=== PATIENT | male | born 1970 | race Native Hawaiian/Other Pacific Islander ===

== ENCOUNTER 2020-12-01 10:23 | Inpatient (IN) | payer OTHER ==
[2020-12-01] MEDS ORDERED: ACETAMINOPHEN 500 MG TAB PO ONE (10:41)
--- NOTE | 2020-12-01 10:45 | Event Note ---
ED Screening Note Date of service: 12/01/20 Time: 10:45 ED Screening Note: 49-year-old male patient presents to the emergency department with complaints of subjective fever, body aches, chest pain, and cough for 3 days. General: Awake, appropriately interactive, no acute distress. Neck: Supple. Full range of motion intact. Cardiovascular: Tachycardic. Normal peripheral perfusion. Pulmonary: Clear to auscultation. No respiratory distress. Patient is speaking normally without use of accessory muscles. Skin: No apparent rashes or lesions. Neurological: No facial asymmetry. Speech is clear. Follows commands. Patient is alert and oriented. Musculoskeletal: Moves all four extremities spontaneously with normal range of motion. Psych: Cooperative. Appropriate mood and affect. Febrile/tachycardic in triage --> lactic acid + Tylenol ordered; decision to pursue further sepsis work-up deferred to additional ED providers I have greeted and performed a focused rapid initial assessment of this patient. A comprehensive ED assessment and evaluation of the patient, analysis of all test results, and completion of the medical decision-making process will be conducted by additional ED providers. This initial assessment/diagnostic orders/clinical plan/treatment(s) is/are subject to change based on patients health status, clinical progression and re-assessment. Further treatment and workup at subsequent clinical provider's discretion. Patient/guardian urged not to elope from the ED as their condition may be serious if not clinically assessed and managed.
[2020-12-01] MEDS ORDERED: LIDOCAINE PF 100 MG/5 ML (CARDIAC SYRINGE) IV ONE ×2 (10:55→11:46)
[2020-12-01] MEDS ORDERED: MIDAZOLAM 2 MG/2 ML INJ ONE (10:56)
[2020-12-01] MEDS ORDERED: fentaNYL 100 MCG/2 ML INJ ONE (10:56)
[2020-12-01] MEDS ORDERED: PHENYLEPHRINE/NS 1,000 MCG/10 ML SYRINGE (OR USE) IV ONE ×2 (10:56→11:47)
[2020-12-01] MEDS ORDERED: EPINEPHrine 1 MG/10 ML SYRINGE ONE ×2 (10:56→11:46)
[2020-12-01] MEDS ORDERED: HEPARIN 10,000 UNITS/10 ML VIAL ONE (10:56)
[2020-12-01] MEDS ORDERED: HEPARIN/NS 5000 UNIT/500ML 0 ML IR ONE (10:56)
[2020-12-01] MEDS ORDERED: ATROPINE 0.1% (1 MG/10 ML) CARDIAC SYRINGE ONE (10:56)
[2020-12-01] MEDS ORDERED: VERAPAMIL 5 MG/2 ML INJ ONE ×2 (10:56→11:47)
[2020-12-01] MEDS ORDERED: LIDOCAINE (2%) 20 MG/1 ML VIAL 20 ML MDV INFILTRATI ONE ×2 (10:57→11:47)
[2020-12-01] MEDS ORDERED: NITROGLYCERIN SYRINGE 0 ML ONE (10:57)
[2020-12-01] MEDS ORDERED: SODIUM CHLORIDE 0.9% 500 ML 0 ML ONE (10:57)
[2020-12-01] MEDS ORDERED: SODIUM CHLORIDE 0.9% 1000 ML 1,000 ML IV ONE (10:59)
[2020-12-01 11:08] LABS: Basophils # (Auto) 0.1 K/mm3 (0.0-0.1); Basophils % (Auto) 0.4 % (0.0-1.8); Hematocrit 47.6 % (35.5-45.6); Hemoglobin 16.1 gm/dl (11.8-15.2); Lymphocytes # (Auto) 1.8 K/mm3 (1.2-5.4); Lymphocytes % (Auto) 10.6 % (13.4-35.0); Mean Corpuscular HGB Conc 34 % (32-34); Mean Corpuscular Volume 94 fl (84-94); Monocytes # (Auto) 1.7 K/mm3 (0.0-0.8); Monocytes % (Auto) 10.2 % (0.0-7.3); Platelet Count 226 K/mm3 (140-440); Red Blood Count 5.06 M/mm3 (3.65-5.03); Red Cell Distribution Width 13.1 % (13.2-15.2)
[2020-12-01] MEDS ORDERED: cefTRIAXone/NS 1 GM/50 ML 1 GM/50 ML BAG IV ONE (11:21)
[2020-12-01] MEDS ORDERED: ASPIRIN 325 MG TAB PO ONE (11:22)
[2020-12-01] MEDS ORDERED: CLOPIDOGREL 300 MG TAB PO ONE (11:22)
[2020-12-01] MEDS ORDERED: HEPARIN 10,000 UNITS/10 ML VIAL IV ONE ×2 (11:23→13:18)
[2020-12-01] MEDS ORDERED: HEPARIN 10,000 UNITS/10 ML VIAL IV PRN (11:23)
[2020-12-01 11:30] LABS: Alanine Aminotransferase 46 units/L (7-56); Albumin 3.6 g/dL (3.9-5); BUN/Creatinine Ratio 16; Blood Urea Nitrogen 14 mg/dL (9-20); Calcium 8.9 mg/dL (8.4-10.2); Hemolysis Index 22
--- NOTE | 2020-12-01 11:31 | XRay Report ---
CHEST 1 VIEW 12/01/2020 10:11 AM INDICATION / CLINICAL INFORMATION: hypertension. COMPARISON: None available. FINDINGS: SUPPORT DEVICES: None. HEART / MEDIASTINUM: No significant abnormality. LUNGS / PLEURA: No significant pulmonary or pleural abnormality. No pneumothorax. ADDITIONAL FINDINGS: No significant additional findings. IMPRESSION: 1. No acute findings. Signer Name: Trevor Holden MD Signed: 12/01/2020 11:26 AM Workstation Name: [id number]
[2020-12-01 11:37] LABS: C-Reactive Protein 27.5 mg/dL (0.00-1.30)
[2020-12-01] MEDS ORDERED: HEPARIN/NS 5000 UNIT/500ML 1,000 ML IR ONE (11:46)
[2020-12-01 11:47] LABS: INR 1.07 (0.87-1.13)
[2020-12-01] MEDS ORDERED: SODIUM CHLORIDE 0.9% 500 ML 500 ML ONE (11:47)
[2020-12-01] MEDS ORDERED: NITROGLYCERIN SYRINGE 3 ML ONE (11:47)
--- NOTE | 2020-12-01 11:55 | Emergency Department Report ---
ED Chest Pain HPI - General Chief Complaint: Chest Pain Stated Complaint: CHEST PAIN/COLD/DIZZY Time Seen by Provider: 12/01/20 10:50 Source: patient Mode of arrival: Ambulatory Limitations: No Limitations - History of Present Illness Initial Comments: This is a 49-year-old male with no prior cardiac history. He states that he developed substernal chest heaviness with bilateral arm tingling or numbness on Sunday. He states the pain has been constant but waxing and waning in intensity. 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 When he came home on Sunday he felt like he had a fever and a dry cough. He states that he was around somebody with Covid 3 months ago but no recent exposures. He has not been vaccinated. On Sunday the patient's chest pain was much more severe. It was associated with diaphoresis. Today (Sunday) he decided to seek out medical care. He is not on any current medications. He does not smoke. He states his grandmother had some sort of heart problem but could not specify. He is somewhat hard of hearing. The aviation survival technician presented his EKG to be. It was consistent with a subacute STEMI or STEMI in evolution with cues and ST elevation in the inferolateral leads J- point elevation in anterior leads. It was texted to the on-call forms designer. Patient was found to have a fever and tachycardia. We are directed to continue to work on his medical status pending possible cardiac catheterization. This was done. On my encounter the patient stated he felt relatively comfortable perhaps giving his chest pain a 3 out of 10. He states it has been much better than previously especially on Sunday. He is not complaining of shortness of breath. He was not sweaty or nauseated. Complaint: chest pain -: Gradual, days(s) Onset: during rest Pain Location: substernal Pain Radiation: other (Tingling in arms) Severity: mild (Depending on day), moderate, severe Quality: heaviness Consistency: constant Improves With: nothing Worsens With: other (Unable to work on Sunday) Context: recent illness (Recent febrile illness) re: diaphoresis (Yesterday). denies: nausea, vomting Other Symptoms: cough (Nonproductive), fever. denies: syncope, rash Treatments Prior to Arrival: none Aspirin use within the Past 7 Days: (0) No - Related Data Allergies Allergy/AdvReac Type Severity Reaction Status Date / Time No Known Allergies Allergy Verified 12/01/20 10:40 Heart Score - HEART Score History: Highly suspicious EKG: Significant ST-depression Age: 45-65 Risk factors: 1-2 risk factors Troponin: 1-3x normal limit HEART Score: 7 - EKG Read Time Time EKG Completed: 10:45 EKG Read Time: 10:47 - Critical Actions Critical Actions: >7 pts:50-65% risk of adverse cardiac event. Early invasive measures ED Review of Systems ROS: Stated complaint: CHEST PAIN/COLD/DIZZY Other details as noted in HPI Constitutional: diaphoresis, fever. denies: chills Eyes: eye discharge. denies: eye pain, vision change ENT: denies: ear pain, throat pain Respiratory: cough, shortness of breath (Not currently). denies: wheezing Cardiovascular: as per HPI, chest pain. denies: palpitations Endocrine: no symptoms reported Gastrointestinal: denies: abdominal pain, nausea, diarrhea Genitourinary: denies: urgency, dysuria Musculoskeletal: denies: back pain, arthralgia Skin: denies: rash, lesions Neurological: denies: headache, weakness, paresthesias Psychiatric: denies: anxiety, depression Hematological/Lymphatic: denies: easy bleeding, easy bruising ED Past Medical Hx - Past Medical History Previous Medical History?: No - Surgical History Past Surgical History?: No - Social History Smoking Status: Light Tobacco Smoker Substance Use Type: Alcohol ED Physical Exam - General Limitations: No Limitations General appearance: alert, in no apparent distress - Head Head exam: Present: atraumatic, normocephalic - Eye Eye exam: Present: normal appearance. Absent: scleral icterus - ENT ENT exam: Present: mucous membranes moist - Neck Neck exam: Present: normal inspection - Respiratory Respiratory exam: Present: normal lung sounds bilaterally. Absent: respiratory distress - Cardiovascular Cardiovascular Exam: Present: regular rate, normal rhythm. Absent: systolic murmur, diastolic murmur, rubs, gallop - GI/Abdominal GI/Abdominal exam: Present: soft, normal bowel sounds. Absent: distended, tenderness, guarding, rebound - Rectal Rectal exam: Present: deferred - Extremities Exam Extremities exam: Present: normal inspection. Absent: calf tenderness - Back Exam Back exam: Present: normal inspection - Neurological Exam Neurological exam: Present: alert, oriented X3, CN II-XII intact. Absent: motor sensory deficit - Psychiatric Psychiatric exam: Present: normal affect, normal mood - Skin Skin exam: Present: warm, dry, intact, normal color. Absent: rash ED Course Vital Signs 12/01/20 12/01/20 12/01/20 10:35 11:00 11:03 Temperature 101.1 F H Pulse Rate 111 H 102 H Respiratory 20 25 H 24 Rate Blood Pressure 127/89 O2 Sat by Pulse 100 97 97 Oximetry - Reevaluation(s) Reevaluation #1: Case was discussed with the forms designer again after initial encounter. Chest x-ray was not impressive for for pneumonia. Blood cultures were obtained. Patient was given 1 dose of ceftriaxone. Bone Tender recommended MICHELLE Maliha L, aspirin and heparin. Patient was ultimately called to the [facility]. 12/01/20 11:58 Reevaluation #2: Hospitalist Dr. Manriquez was notified of the need to admit. 12/01/20 12:01 JOHNNY score - Johnny Score Age > 65: (0) No Aspirin use within the Past 7 Days: (0) No 3 or more CAD Risk Factors: (0) No 2 or more Angina events in past 24 hrs: (1) Yes Known CAD with more than 50% Stenosis: (0) No Elevated Cardiac Markers: (1) Yes ST Deviation Greater than 0.5mm: (1) Yes JOHNNY Score: 3 ED Medical Decision Making - Lab Data Result diagrams: 12/01/20 10:55 12/01/20 11:10 Laboratory Results - last 24 hr 12/01/20 12/01/20 12/01/20 10:55 10:55 10:55 WBC 16.7 H RBC 5.06 H Hgb 16.1 H Hct 47.6 H MCV 94 MCH 32 MCHC 34 RDW 13.1 L Plt Count 226 Lymph % (Auto) 10.6 L Cache % (Auto) 10.2 H Eos % (Auto) 0.0 Baso % (Auto) 0.4 Lymph # (Auto) 1.8 Cache # (Auto) 1.7 H Eos # (Auto) 0.0 Baso # (Auto) 0.1 Seg Neutrophils % 78.8 H Seg Neutrophils # 13.1 H PT INR APTT D-Dimer Sodium 136 L Potassium 3.9 Chloride 97.6 L Carbon Dioxide 27 Anion Gap 15 BUN 14 Creatinine 0.9 Estimated GFR > 60 BUN/Creatinine Ratio 16 Glucose 158 H Lactic Acid 1.30 Calcium 8.9 Magnesium 1.70 Total Bilirubin 0.80 AST 136 H ALT 46 Alkaline Phosphatase 70 Lactate Dehydrogenase Total Creatine Kinase 605 H Troponin T 1.910 H* C-Reactive Protein Total Protein 8.2 Albumin 3.6 L Albumin/Globulin Ratio 0.8 Procalcitonin 12/01/20 12/01/20 12/01/20 11:10 11:10 11:11 WBC RBC Hgb Hct MCV MCH MCHC RDW Plt Count Lymph % (Auto) Cache % (Auto) Eos % (Auto) Baso % (Auto) Lymph # (Auto) Cache # (Auto) Eos # (Auto) Baso # (Auto) Seg Neutrophils % Seg Neutrophils # PT INR APTT D-Dimer 342.27 H Sodium Potassium Chloride Carbon Dioxide Anion Gap BUN Creatinine Estimated GFR BUN/Creatinine Ratio Glucose 174 H Lactic Acid Calcium Magnesium Total Bilirubin AST ALT Alkaline Phosphatase Lactate Dehydrogenase 960 H Total Creatine Kinase Troponin T C-Reactive Protein 27.50 H Total Protein Albumin Albumin/Globulin Ratio Procalcitonin 0.26 12/01/20 11:11 WBC RBC Hgb Hct MCV MCH MCHC RDW Plt Count Lymph % (Auto) Cache % (Auto) Eos % (Auto) Baso % (Auto) Lymph # (Auto) Cache # (Auto) Eos # (Auto) Baso # (Auto) Seg Neutrophils % Seg Neutrophils # PT 13.8 INR 1.07 APTT 32.0 D-Dimer Sodium Potassium Chloride Carbon Dioxide Anion Gap BUN Creatinine Estimated GFR BUN/Creatinine Ratio Glucose Lactic Acid Calcium Magnesium Total Bilirubin AST ALT Alkaline Phosphatase Lactate Dehydrogenase Total Creatine Kinase Troponin T C-Reactive Protein Total Protein Albumin Albumin/Globulin Ratio Procalcitonin - EKG Data -: EKG Interpreted by Me EKG shows normal: sinus rhythm Rate: normal - EKG Data Interpretation: other (Q's and ST elevation noted in the inferolateral leads consistent with recent STEMI/STEMI in evolution) - Radiology Data Radiology results: image reviewed (Slightly increased markings in the right lower lobe. I do not think diagnostic of pneumonia) Critical Care Time: Yes Critical care time in (mins) excluding proc time.: 35 Critical care attestation.: If time is entered above; I have spent that time in minutes in the direct care of this critically ill patient, excluding procedure time. ED Disposition Clinical Impression: Febrile illness, acute Myocardial infarction Qualifiers: Myocardial infarction type: unspecified Involved coronary artery: unspecified coronary artery Qualified Code(s): I21.9 - Acute myocardial infarction, unspecified Disposition: 09 OP ADMIT IP TO THIS HOSP Is pt being admited?: Yes Does the pt Need Aspirin: Yes Condition: Stable Referrals: PRIMARY CARE, [Primary Care Provider] - 3-5 Days Time of Disposition: 12:02
[2020-12-01] MEDS ORDERED: HEPARIN/ 0.45% NACL DRIP 25,000 UNIT/500 ML BAG IV SCH (12:00)
--- NOTE | 2020-12-01 12:12 | Consultation ---
History of Present Illness Consult date: 12/01/20 Consult reason: chest pain History of present illness: The patient is a 49-year-old man who presented to the emergency room today with complaints of chest pain, fever and cough. His chest pain began 3 days ago, and has been intermittent, and was pain-free at the time of his emergency room presentation. The fever has been persistent, and in the emergency room his temperature was 101 Fahrenheit. ECG done in the emergency room showed a sinus rhythm with QS complexes and ST elevation suggesting a recent inferolateral myocardial infarction. Due to the patient's presentation with fever, and prolonged duration of chest pain over 3 days, he was determined not a candidate for STEMI protocol. We opted to first have a limited work-up of his fever with a white count which was 16,000, and a chest x-ray which showed no acute infiltrates. Using COVID-19 isolation protocols, we recommended immediate cardiac catheterization for post infarction angina. The patient otherwise looks and feels well, no active chest pain at this time, no acute respiratory distress. Past History Past Medical History: No medical history Medications and Allergies Allergies Allergy/AdvReac Type Severity Reaction Status Date / Time No Known Allergies Allergy Verified 12/01/20 10:40 Review of Systems Cardiovascular: chest pain, shortness of breath, no orthopnea, no palpitations, no rapid/irregular heart beat, no edema, no syncope, no lightheadedness Physical Examination Vital Signs Temp Pulse Resp BP Pulse Ox 101.1 F H 111 H 20 127/89 100 12/01/20 10:35 12/01/20 10:35 12/01/20 10:35 12/01/20 10:35 12/01/20 10:35 General appearance: no acute distress HEENT: Positive: PERRL Neck: Positive: neck supple Cardiac: Positive: Reg Rate and Rhythm Lungs: Positive: Decreased Breath Sounds Neuro: Positive: Grossly Intact Abdomen: Positive: Soft Male genitourinary: Positive: deferred Skin: Positive: Clear Extremities: Absent: edema Results 12/01/20 10:55 12/01/20 11:10 Cardiac Enzymes 12/01/20 12/01/20 Range/Units 10:55 11:10 AST 136 H (5-40) units/L Lactate Dehydrogenase 960 H (91-180) units/L Coagulation 12/01/20 Range/Units 11:11 PT 13.8 (12.2-14.9) Sec. INR 1.07 (0.87-1.13) APTT 32.0 (24.2-36.6) Sec. CBC 12/01/20 Range/Units 10:55 WBC 16.7 H (4.5-11.0) K/mm3 RBC 5.06 H (3.65-5.03) M/mm3 Hgb 16.1 H (11.8-15.2) gm/dl Hct 47.6 H (35.5-45.6) % Plt Count 226 (140-440) K/mm3 Lymph # (Auto) 1.8 (1.2-5.4) K/mm3 [place] # (Auto) 1.7 H (0.0-0.8) K/mm3 Eos # (Auto) 0.0 (0.0-0.4) K/mm3 Baso # (Auto) 0.1 (0.0-0.1) K/mm3 Comprehensive Metabolic Panel 12/01/20 12/01/20 Range/Units 10:55 11:10 Sodium 136 L (137-145) mmol/L Potassium 3.9 (3.6-5.0) mmol/L Chloride 97.6 L (98-107) mmol/L Carbon Dioxide 27 (22-30) mmol/L BUN 14 (9-20) mg/dL Creatinine 0.9 (0.8-1.3) mg/dL Glucose 158 H 174 H (75-100) mg/dL Calcium 8.9 (8.4-10.2) mg/dL AST 136 H (5-40) units/L ALT 46 (7-56) units/L Alkaline Phosphatase 70 (35-129) units/L Total Protein 8.2 (6.3-8.2) g/dL Albumin 3.6 L (3.9-5) g/dL EKG interpretations - Telemetry EKG Rhythm: Sinus Rhythm (With inferolateral QS complexes and ST elevations consistent with an evolving, recent myocardial infarction) Assessment and Plan - Patient Problems (1) Acute coronary syndrome Status: Acute Plan to address problem: Patient presented with 3 days of chest pain, cough and fever. Febrile 101 in the emergency room. White count 16,000. EKG shows QS complexes and ST elevations inferolateral leads consistent with a recent myocardial infarction, which likely occurred 3 days ago. We will proceed with cardiac catheterization, using COVID-19 isolation protocols, indication postinfarction angina.
[2020-12-01] MEDS ORDERED: ONDANSETRON 4 MG/2 ML INJ ONE (12:21)
[2020-12-01] MEDS: MIDAZOLAM 2 MG/2 ML INJ ONE ×2 (12:22→13:04)
[2020-12-01] MEDS: fentaNYL 100 MCG/2 ML INJ ONE ×3 (12:22→13:03)
[2020-12-01 12:23] LABS: Creatine Kinase MB 14.7 ng/mL (0.0-4.0)
[2020-12-01] MEDS: HEPARIN 10,000 UNITS/10 ML VIAL ONE ×2 (12:30→12:46)
[2020-12-01] MEDS ORDERED: NITROGLYCERIN 600 MCG/3 ML SYRINGE ART-SHEATH ONE (12:35)
[2020-12-01] MEDS ORDERED: TIROFIBAN/NS 12,500 MCG/250 ML BAG IV ONE (12:50)
[2020-12-01] MEDS ORDERED: TIROFIBAN 12.5 MG/250 ML BOLUS (50 MCG/ML) IV ONE (12:57)
[2020-12-01] MEDS ORDERED: TIROFIBAN/NS 12.5 MG/250 ML DRIP IV ONE (13:01)
[2020-12-01] MEDS ORDERED: NITROGLYCERIN 600 MCG/3 ML SYRINGE INTRA-CORO ONE (13:05)
[2020-12-01 13:09] LABS: Chol/HDL Ratio 2.33 %; HDL Cholesterol 69 mg/dL (40-59); LDL Cholesterol,Direct 97 mg/dL (50-130)
[2020-12-01] MEDS ORDERED: NITROGLYCERIN DRIP 50 MG/250 ML BOTTLE ONE (13:10)
[2020-12-01] MEDS ORDERED: METOPROLOL TARTRATE 5 MG/5 ML INJ IV ONE ×2 (13:10→13:17)
[2020-12-01] MEDS ORDERED: SODIUM CHLORIDE 0.9% 1000 ML 1,000 ML IV SCH (13:30)
[2020-12-01] MEDS ORDERED: MORPHINE 2 MG/1 ML INJ IV PRN (13:30)
[2020-12-01] MEDS ORDERED: HYDROmorphone 1 MG/1 ML INJ IV PRN (13:30)
[2020-12-01] MEDS ORDERED: NITROGLYCERIN DRIP 50 MG/250 ML BOTTLE IV ONE (13:59)
[2020-12-01] MEDS ORDERED: METOPROLOL TARTRATE 50 MG TAB PO SCH (14:00)
[2020-12-01] MEDS ORDERED: oxyCODONE /ACETAMINOPHEN 5-325MG TAB PO PRN (14:00)
[2020-12-01] MEDS ORDERED: ONDANSETRON 4 MG/2 ML INJ IV PRN (14:00)
[2020-12-01] MEDS: TIROFIBAN/NS 12,500 MCG/250 ML BAG IV SCH (14:15)
--- NOTE | 2020-12-01 14:50 | Cardiac Catherization Report ---
DATE OF SERVICE: 12/01/2020 CARDIAC CATHETERIZATION AND CORONARY ANGIOPLASTY REPORT REASON FOR PROCEDURE: The patient is a 49-year-old male who presented to the hospital with 3 days of chest pain. The EKG appeared consistent with recent myocardial infarction. There were QS complexes with persistent ST elevation in the inferolateral leads. He was taken to the cardiac catheterization laboratory for immediate cardiac catheterization on the basis of post-infarction angina. ASSOCIATED CONDITIONS: Include fever over the past 3 days associated with cough. Initial labs showed a white count of 16,000. Chest x-ray was negative for significant infiltrates. DESCRIPTION OF PROCEDURE: The patient was prepped and draped in a sterile fashion after informed consent. I was present for the entire procedure and supervised the moderate sedation protocol. The right radial artery was entered using Seldinger technique followed by placement of a 6-Maldivian hydrophilic sheath. Routine radial cocktail was administered via the sheath. Selective left and right coronary angiography was performed using a #3.5 left Karolina and the #4 right Karolina. The right Karolina was used for left ventricular angiography. FINDINGS: HEMODYNAMICS: Left ventricular end diastolic pressure was 12. Ascending aortic pressure 134/80. There was no significant pressure gradient on pullback across the aortic valve. CORONARY ANGIOGRAPHY: Left main coronary artery was free of significant disease. The left anterior descending artery contained an eccentric, 50-70% stenosis of its proximal segment. The circumflex was a large caliber vessel, that was completely occluded in its mid segment. This was the infarct-related lesion. The right coronary artery was dominant, contained mild luminal irregularities, but otherwise widely patent. There was severe left ventricular systolic dysfunction with diffuse hypokinesis, ejection fraction 20%. CORONARY ANGIOPLASTY: After review of the angiograms, we proceeded with ad-hoc coronary intervention to the circumflex. We exchanged for a 3.0 XB guiding catheter and advanced to the left coronary ostium. A 0.014 inch Digital Circuit Designer 50 guidewire was then directed into the circumflex, and successfully penetrated the lesion in segment. Following wire placement, balloon angioplasty was performed, with reestablishment of SANTY 1-2 distal flow. This revealed extensive intraluminal thrombus. EXPORT CATHETER THROMBECTOMY: After visualization of a large amount of thrombus within the vessel with SANTY 1-2 flow, we then proceeded with use of [place] catheter. Four passes were made with retrieval of large amounts of thrombus. After [place] catheter, flow improved significantly in the vessel, greater at #2 to 3 antegrade. Following reestablishment of optimal flow after [place] catheter, we found the primary lesion was an ulcerated 80% residual stenosis in the mid to distal segment of this vessel leading to the terminal obtuse marginal. We then deployed a 3.5 x 12 mm drug-eluting stent covering this lesional segment, and the stent was inflated to optimal pressures. Following stenting, there was an excellent angiographic result with zero residual stenosis at the primary lesion, and SANTY 2-3 flow in the distal vessel. Procedure was well tolerated by the patient and there were no complications. CONCLUSION: 1. The patient presented with 3 days of chest pain and EKG and clinical presentation consistent with post-infarction angina. 2. Cardiac catheterization revealed 2-vessel disease with 100% occlusion of the mid circumflex as the infarct-related lesion. 3. Severe cardiomyopathy with left ventricular ejection fraction 20%. 4. Successful primary angioplasty and stenting of the circumflex, including successful thrombectomy using an [place] catheter. 5. The nonocclusive disease of the proximal LAD will be considered for medical management versus second vessel staged intervention if clinically indicated. TID: [id number] RECEIPT: [id number] CA/NIT
[2020-12-01] MEDS: FAMOTIDINE 20 MG/2 ML INJ IV SCH ×2 (15:30→21:07)
[2020-12-01] MEDS: METOPROLOL TARTRATE 25 MG TAB PO SCH ×2 (16:55→21:08)
[2020-12-01] MEDS: HYDROcodone/ACETAMINOPHEN 5-325 MG TAB PO PRN (21:08)
[2020-12-02] MEDS: TIROFIBAN/NS 12,500 MCG/250 ML BAG IV SCH (04:19)
--- NOTE | 2020-12-02 05:55 | XRay Report ---
CHEST 1 VIEW INDICATION / CLINICAL INFORMATION: post pci. COMPARISON: Chest radiograph one day prior FINDINGS: SUPPORT DEVICES: None. HEART / MEDIASTINUM: No significant abnormality. LUNGS / PLEURA: Minimal left basilar subsegmental atelectasis. The lungs are otherwise clear. No pleu ral effusion. No pneumothorax. ADDITIONAL FINDINGS: No significant additional findings. IMPRESSION: 1. No acute findings. Signer Name: Arielle Truong MD Signed: 12/02/2020 5:50 AM Workstation Name: [id number]
--- NOTE | 2020-12-02 06:21 | History and Physical Report ---
History of Present Illness Date of examination: 12/01/20 Date of admission: 12/01/20 13:16 Chief complaint: Chest pain for 3 days History of present illness: 49-year-old male with no significant past medical history comes for substernal chest pain and with radiation to the both arms associated with tingling since last Sunday which is 3 days ago. Pain has been intermittent in nature 8 on a scale of 1-10. Patient also has a low-grade fever associated with diaphoresis. Because of intermittent chest pain patient came to the emergency room. EKG was consistent with STEMI and evaluation. Called STEMI was called. Her ST elevation in the inferolateral leads. Patient was also found to have fever and tachycardia. Patient was given IV Rocephin in the emergency room. Patient was taken to the [facility]. Heart Score - HEART Score History: Highly suspicious EKG: Significant ST-depression Age: 45-65 Risk factors: 1-2 risk factors Troponin: 1-3x normal limit HEART Score: 7 - EKG Read Time Time EKG Completed: 10:45 EKG Read Time: 10:47 - Critical Actions Critical Actions: >7 pts:50-65% risk of adverse cardiac event. Early invasive measures - Past Medical History Previous Medical History?: No - Surgical History Past Surgical History?: No - Social History Smoking Status: Light Tobacco Smoker Substance Use Type: Alcohol Review of Systems ROS: Stated complaint: CHEST PAIN/COLD/DIZZY Other details as noted in HPI Constitutional: diaphoresis, fever. denies: chills Eyes: eye discharge. denies: eye pain, vision change ENT: denies: ear pain, throat pain Respiratory: cough, shortness of breath (Not currently). denies: wheezing Cardiovascular: as per HPI, chest pain. denies: palpitations Endocrine: no symptoms reported Gastrointestinal: denies: abdominal pain, nausea, diarrhea Genitourinary: denies: urgency, dysuria Musculoskeletal: denies: back pain, arthralgia Skin: denies: rash, lesions Neurological: denies: headache, weakness, paresthesias Psychiatric: denies: anxiety, depression Hematological/Lymphatic: denies: easy bleeding, easy bruising Past History Past Medical History: No medical history Medications and Allergies Allergies Allergy/AdvReac Type Severity Reaction Status Date / Time No Known Allergies Allergy Verified 12/01/20 10:40 Home Medications Medication Instructions Recorded Confirmed Last Taken Type No Known Home Medications [No 12/01/20 12/01/20 Unknown History Reported Home Medications] Active Meds: Active Medications Acetaminophen (Acetaminophen 325 Mg Tab) 650 mg PO Q4H PRN PRN Reason: Pain MILD(1-3)/Fever >100.5/GIBSON Hydrocodone Bitart/Acetaminophen (Hydrocodone/Acetaminophen 5-325 Mg Tab) 1 each PO Q6H PRN PRN Reason: Pain, Moderate (4-6) Last Admin: 12/01/20 21:08 Dose: 1 each Documented by: Aspirin (Aspirin Ec 325 Mg Tab) 325 mg PO QDAY [facility] Clopidogrel Bisulfate (Clopidogrel 75 Mg Tab) 75 mg PO QDAY [facility] Famotidine (Famotidine 20 Mg/2 Ml Inj) 20 mg IV BID [facility] Last Admin: 12/01/20 21:07 Dose: 20 mg Documented by: Hydromorphone HCl (Hydromorphone 1 Mg/1 Ml Inj) 0.5 mg IV Q3H PRN PRN Reason: Pain , Severe (7-10) Nitroglycerin/Dextrose (Tridil Drip 50mg/250ml) 50 mg in 250 mls @ 3 mls/hr IV TITR ONE; Protocol Stop: 12/05/20 01:18 Last Titration: 12/01/20 18:33 Dose: 0 mcg/min, 0 mls/hr Documented by: Tirofiban/Sodium Chloride (Aggrastat Drip (12.5 Mg/250 Ml)) 12,500 mcg in 250 mls @ 12 mls/hr IV DIRECT [facility]; Protocol Stop: 12/02/20 07:59 Last Admin: 12/02/20 04:19 Dose: 12 mls/hr Documented by: Ceftriaxone Sodium (Rocephin/Ns 2 Gm/100 Ml) 2 gm in 100 mls @ 200 mls/hr IV Q24HR [facility]; Protocol Metoprolol Tartrate (Metoprolol Tartrate 25 Mg Tab) 25 mg PO Q6H [facility] Last Admin: 12/01/20 21:08 Dose: 25 mg Documented by: Morphine Sulfate (Morphine 2 Mg/1 Ml Inj) 2 mg IV Q4H PRN PRN Reason: Pain, Moderate (4-6) Ondansetron HCl (Ondansetron 4 Mg/2 Ml Inj) 4 mg IV Q8H PRN PRN Reason: Nausea And Vomiting Oxycodone/Acetaminophen (Oxycodone /Acetaminophen 5-325mg Tab) 1 tab PO Q6H PRN PRN Reason: Pain, Moderate (4-6) Sodium Chloride (Sodium Chloride 0.9% 10 Ml Flush Syringe) 10 ml IV BID [facility] Last Admin: 12/01/20 21:39 Dose: Not Given Documented by: Sodium Chloride (Sodium Chloride 0.9% 10 Ml Flush Syringe) 10 ml IV PRN PRN PRN Reason: LINE FLUSH Exam - Constitutional Vitals: Temp Pulse Resp BP Pulse Ox 99.2 F 92 H 12 104/70 95 12/02/20 00:00 12/02/20 06:00 12/02/20 06:00 12/02/20 06:00 12/02/20 06:00 General appearance: Present: no acute distress, well-nourished - EENT Eyes: Present: PERRL ENT: hearing intact, clear oral mucosa - Neck Neck: Present: supple, normal ROM - Respiratory Respiratory effort: normal Respiratory: bilateral: CTA - Cardiovascular Heart rate: 78 Rhythm: regular Heart Sounds: Present: S1 & S2. Absent: rub, click - Extremities Extremities: pulses symmetrical, No edema Peripheral Pulses: within normal limits - Abdominal General gastrointestinal: Present: soft, non-tender, non-distended, normal bowel sounds Male genitourinary: Present: normal - Integumentary Integumentary: Present: clear, warm, dry - Musculoskeletal Musculoskeletal: gait normal, strength equal bilaterally - Psychiatric Psychiatric: appropriate mood/affect, intact judgment & insight - Neurologic Neurologic: CNII-XII intact, moves all extremities HEART Score - HEART Score EKG: Significant ST-depression Age: 45-65 Risk factors: 1-2 risk factors Troponin: Troponin T 1.910 ng/mL (0.00-0.029) H* 12/01/20 10:55 Troponin: 1-3x normal limit - Critical Actions Critical Actions: >7 pts:50-65% risk of adverse cardiac event. Early invasive measures Results - Labs CBC & Chem 7: 12/01/20 10:55 12/01/20 11:10 Labs: Laboratory Last Values WBC 16.7 K/mm3 (4.5-11.0) H 12/01/20 10:55 RBC 5.06 M/mm3 (3.65-5.03) H 12/01/20 10:55 Hgb 16.1 gm/dl (11.8-15.2) H 12/01/20 10:55 Hct 47.6 % (35.5-45.6) H 12/01/20 10:55 MCV 94 fl (84-94) 12/01/20 10:55 MCH 32 pg (28-32) 12/01/20 10:55 MCHC 34 % (32-34) 12/01/20 10:55 RDW 13.1 % (13.2-15.2) L 12/01/20 10:55 Plt Count 226 K/mm3 (140-440) 12/01/20 10:55 Lymph % (Auto) 10.6 % (13.4-35.0) L 12/01/20 10:55 [place] % (Auto) 10.2 % (0.0-7.3) H 12/01/20 10:55 Eos % (Auto) 0.0 % (0.0-4.3) 12/01/20 10:55 Baso % (Auto) 0.4 % (0.0-1.8) 12/01/20 10:55 Lymph # (Auto) 1.8 K/mm3 (1.2-5.4) 12/01/20 10:55 [place] # (Auto) 1.7 K/mm3 (0.0-0.8) H 12/01/20 10:55 Eos # (Auto) 0.0 K/mm3 (0.0-0.4) 12/01/20 10:55 Baso # (Auto) 0.1 K/mm3 (0.0-0.1) 12/01/20 10:55 Seg Neutrophils % 78.8 % (40.0-70.0) H 12/01/20 10:55 Seg Neutrophils # 13.1 K/mm3 (1.8-7.7) H 12/01/20 10:55 PT 13.8 Sec. (12.2-14.9) 12/01/20 11:11 INR 1.07 (0.87-1.13) 12/01/20 11:11 APTT 32.0 Sec. (24.2-36.6) 12/01/20 11:11 D-Dimer 342.27 ng/mlDDU (0-234) H 12/01/20 11:11 Sodium 136 mmol/L (137-145) L 12/01/20 10:55 Potassium 3.9 mmol/L (3.6-5.0) 12/01/20 10:55 Chloride 97.6 mmol/L (98-107) L 12/01/20 10:55 Carbon Dioxide 27 mmol/L (22-30) 12/01/20 10:55 Anion Gap 15 mmol/L 12/01/20 10:55 BUN 14 mg/dL (9-20) 12/01/20 10:55 Creatinine 0.9 mg/dL (0.8-1.3) 12/01/20 10:55 Estimated GFR > 60 ml/min 12/01/20 10:55 BUN/Creatinine Ratio 16 % 12/01/20 10:55 Glucose 174 mg/dL (75-100) H 12/01/20 11:10 Hemoglobin A1c 5.9 % (4-6) 12/01/20 15:07 Lactic Acid 1.30 mmol/L (0.7-2.0) 12/01/20 10:55 Calcium 8.9 mg/dL (8.4-10.2) 12/01/20 10:55 Magnesium 1.70 mg/dL (1.7-2.3) 12/01/20 10:55 Ferritin 470.4 ng/mL (30.0-300.0) H 12/01/20 11:10 Total Bilirubin 0.80 mg/dL (0.1-1.2) 12/01/20 10:55 AST 136 units/L (5-40) H 12/01/20 10:55 ALT 46 units/L (7-56) 12/01/20 10:55 Alkaline Phosphatase 70 units/L (35-129) 12/01/20 10:55 Lactate Dehydrogenase 960 units/L (91-180) H 12/01/20 11:10 Total Creatine Kinase 605 units/L (55-170) H 12/01/20 10:55 Total Creatine Kinase 610 units/L (55-170) H 12/01/20 10:55 CK-MB (CK-2) 14.7 ng/mL (0.0-4.0) H 12/01/20 10:55 CK-MB (CK-2) Rel Index 2.4 (0-4) 12/01/20 10:55 Troponin T 1.910 ng/mL (0.00-0.029) H* 12/01/20 10:55 C-Reactive Protein 27.50 mg/dL (0.00-1.30) H 12/01/20 11:10 NT-Pro-B Natriuret Pep 2600 pg/mL (0-900) H 12/01/20 10:55 Total Protein 8.2 g/dL (6.3-8.2) 12/01/20 10:55 Albumin 3.6 g/dL (3.9-5) L 12/01/20 10:55 Albumin/Globulin Ratio 0.8 % 12/01/20 10:55 Triglycerides 54 mg/dL (2-149) 12/01/20 10:55 Cholesterol 161 mg/dL (50-199) 12/01/20 10:55 LDL Cholesterol Direct 97 mg/dL (50-130) 12/01/20 10:55 HDL Cholesterol 69 mg/dL (40-59) H 12/01/20 10:55 Cholesterol/HDL Ratio 2.33 % 12/01/20 10:55 Procalcitonin 0.26 ng/mL (<0.15) 12/01/20 11:10 Short CBC 12/01/20 Range/Units 10:55 WBC 16.7 H (4.5-11.0) K/mm3 Hgb 16.1 H (11.8-15.2) gm/dl Hct 47.6 H (35.5-45.6) % Plt Count 226 (140-440) K/mm3 BMP 12/01/20 12/01/20 10:55 11:10 Sodium 136 L Potassium 3.9 Chloride 97.6 L Carbon Dioxide 27 BUN 14 Creatinine 0.9 Glucose 158 H 174 H Calcium 8.9 Cardiac Enzymes 12/01/20 12/01/20 Range/Units 10:55 10:55 Total Creatine Kinase 605 H 610 H (55-170) units/L CK-MB (CK-2) 14.7 H (0.0-4.0) ng/mL Troponin T 1.910 H* (0.00-0.029) ng/mL Liver Function 12/01/20 Range/Units 10:55 Total Bilirubin 0.80 (0.1-1.2) mg/dL AST 136 H (5-40) units/L ALT 46 (7-56) units/L Alkaline Phosphatase 70 (35-129) units/L Albumin 3.6 L (3.9-5) g/dL Short CBC 12/01/20 Range/Units 10:55 WBC 16.7 H (4.5-11.0) K/mm3 Hgb 16.1 H (11.8-15.2) gm/dl Hct 47.6 H (35.5-45.6) % Plt Count 226 (140-440) K/mm3 BMP 12/01/20 12/01/20 10:55 11:10 Sodium 136 L Potassium 3.9 Chloride 97.6 L Carbon Dioxide 27 BUN 14 Creatinine 0.9 Glucose 158 H 174 H Calcium 8.9 Cardiac Enzymes 12/01/20 12/01/20 Range/Units 10:55 10:55 Total Creatine Kinase 605 H 610 H (55-170) units/L CK-MB (CK-2) 14.7 H (0.0-4.0) ng/mL Troponin T 1.910 H* (0.00-0.029) ng/mL Liver Function 12/01/20 Range/Units 10:55 Total Bilirubin 0.80 (0.1-1.2) mg/dL AST 136 H (5-40) units/L ALT 46 (7-56) units/L Alkaline Phosphatase 70 (35-129) units/L Albumin 3.6 L (3.9-5) g/dL Microbiology: Microbiology 12/01/20 11:00 Peripheral/Venous Blood Culture - Preliminary Culture in Progress 12/01/20 11:00 Peripheral/Venous Blood Culture - Preliminary Culture in Progress - Imaging and Cardiology EKG: report reviewed (EKG consistent with inferior lateral infarction) Assessment and Plan Assessment and plan: Critical care statement The high probability OF a clinically significant sudden or life-threatening deterioration of the cardiorespiratory system and endocrine system required my f ull and direct attention, intervention and postoperative management. The aggregate critical care time was 40 minutes. The time is in addition to time spent performing reported procedures but includes the followin: Data review and interpretation 2: Patient assessment and monitoring of vital signs 3: Documentation 4:: Medication orders and management Advance Directives: Yes (Full code) VTE prophylaxis?: Chemical Plan of care discussed with patient/family: Yes - Patient Problems (1) STEMI (ST elevation myocardial infarction) Current Visit: Yes Status: Acute Plan to address problem: ' Code STEMI was called and patient was taken to the [facility]. Cardiac cath Patient presented with 3 days of chest pain and EKG consistent with posterior infarction angina Cardiac catheter revealed 2 vessel disease with 100% occlusion of the mid circumflex as the infarct-related lesion Severe cardiomyopathy with left ventricle ejection fraction of 20% Successful primary angioplasty and stenting of the circumflex including successful thrombectomy using the export catheter. The nonocclusive disease of the proximal LAD will be considered for medical management was a second vessel staged intervention if clinically indicated. Patient also started on Aggrastat. (2) Cardiomyopathy Current Visit: Yes Status: Acute Qualifiers: Cardiomyopathy type: unspecified Qualified Code(s): I42.9 - Cardiomyopathy, unspecified Plan to address problem: Patient has ejection fraction of between 20 to 30% Lasix initiated Echocardiogram pending (3) SIRS (systemic inflammatory response syndrome) Current Visit: Yes Status: Acute Plan to address problem: Patient is a high white count and fever Patient initiated on IV ceftriaxone Coronavirus PCR to be ruled out Chest x-ray did not show any acute pneumonia Check blood cultures (4) Hyperlipidemia Current Visit: Yes Status: Chronic Qualifiers: Hyperlipidemia type: mixed hyperlipidemia Qualified Code(s): E78.2 - Mixed hyperlipidemia Plan to address problem: Patient initiated on high-dose statins (5) Person under investigation for COVID-19 Current Visit: Yes Status: Acute Plan to address problem: Coronavirus PCR ordered (6) Polycythemia due to fall in plasma volume Current Visit: Yes Status: Acute Plan to address problem: Gentle hydration given the low ejection fraction (7) Hyperglycemia Current Visit: Yes Status: Acute Plan to address problem: Accu-Cheks before meals and at bedtime and coverage A1c is 5.9-possible borderline diabetes Initiated on Metformin XR 500 mg once a day (8) DVT prophylaxis Current Visit: Yes Status: Acute Plan to address problem: On Aggrastat and GI prophylaxis
[2020-12-02] MEDS: ACETAMINOPHEN 325 MG TAB PO PRN ×2 (07:36→17:00)
[2020-12-02] MEDS: METOPROLOL TARTRATE 25 MG TAB PO SCH ×4 (09:32→23:09)
[2020-12-02] MEDS: FAMOTIDINE 20 MG/2 ML INJ IV SCH ×2 (09:35→23:09)
[2020-12-02] MEDS: cefTRIAXone/NS 2 GM/100 ML 2 GM/100 ML BAG IV SCH (09:36)
[2020-12-02] MEDS: CLOPIDOGREL 75 MG TAB PO SCH (09:36)
[2020-12-02] MEDS: ASPIRIN EC 325 MG TAB PO SCH (09:39)
[2020-12-02 10:39] LABS: C-Reactive Protein 25.1 mg/dL (0.00-1.30)
--- NOTE | 2020-12-02 11:36 | Consultation ---
History of Present Illness - Reason for Consult Consult date: 12/02/20 Past History Past Medical History: No medical history Medications and Allergies Allergies Allergy/AdvReac Type Severity Reaction Status Date / Time No Known Allergies Allergy Verified 12/01/20 10:40 Home Medications Medication Instructions Recorded Confirmed Last Taken Type No Known Home Medications [No 12/01/20 12/01/20 Unknown History Reported Home Medications] Active Meds: Active Medications Acetaminophen (Acetaminophen 325 Mg Tab) 650 mg PO Q4H PRN PRN Reason: Pain MILD(1-3)/Fever >100.5/GIBSON Last Admin: 12/02/20 07:36 Dose: 650 mg Documented by: Hydrocodone Bitart/Acetaminophen (Hydrocodone/Acetaminophen 5-325 Mg Tab) 1 each PO Q6H PRN PRN Reason: Pain, Moderate (4-6) Last Admin: 12/01/20 21:08 Dose: 1 each Documented by: Aspirin (Aspirin Ec 325 Mg Tab) 325 mg PO QDAY [facility] Last Admin: 12/02/20 09:39 Dose: 325 mg Documented by: Atorvastatin Calcium (Atorvastatin 40 Mg Tab) 40 mg PO QHS [facility] Clopidogrel Bisulfate (Clopidogrel 75 Mg Tab) 75 mg PO QDAY [facility] Last Admin: 12/02/20 09:36 Dose: 75 mg Documented by: Famotidine (Famotidine 20 Mg/2 Ml Inj) 20 mg IV BID [facility] Last Admin: 12/02/20 09:35 Dose: 20 mg Documented by: Hydromorphone HCl (Hydromorphone 1 Mg/1 Ml Inj) 0.5 mg IV Q3H PRN PRN Reason: Pain , Severe (7-10) Nitroglycerin/Dextrose (Tridil Drip 50mg/250ml) 50 mg in 250 mls @ 3 mls/hr IV TITR ONE; Protocol Stop: 12/05/20 01:18 Last Titration: 12/01/20 18:33 Dose: 0 mcg/min, 0 mls/hr Documented by: Ceftriaxone Sodium (Rocephin/Ns 2 Gm/100 Ml) 2 gm in 100 mls @ 200 mls/hr IV Q24HR [facility]; Protocol Last Admin: 12/02/20 09:36 Dose: 200 mls/hr Documented by: Metoprolol Tartrate (Metoprolol Tartrate 25 Mg Tab) 25 mg PO Q6H [facility] Last Admin: 12/02/20 09:36 Dose: 25 mg Documented by: Morphine Sulfate (Morphine 2 Mg/1 Ml Inj) 2 mg IV Q4H PRN PRN Reason: Pain, Moderate (4-6) Last Admin: 12/02/20 07:43 Dose: 2 mg Documented by: Ondansetron HCl (Ondansetron 4 Mg/2 Ml Inj) 4 mg IV Q8H PRN PRN Reason: Nausea And Vomiting Oxycodone/Acetaminophen (Oxycodone /Acetaminophen 5-325mg Tab) 1 tab PO Q6H PRN PRN Reason: Pain, Moderate (4-6) Sodium Chloride (Sodium Chloride 0.9% 10 Ml Flush Syringe) 10 ml IV BID [facility] Last Admin: 12/01/20 21:39 Dose: Not Given Documented by: Sodium Chloride (Sodium Chloride 0.9% 10 Ml Flush Syringe) 10 ml IV PRN PRN PRN Reason: LINE FLUSH Exam - Constitutional Vitals: Temp Pulse Resp BP Pulse Ox 102.8 F H 89 17 104/64 87 12/02/20 07:00 12/02/20 11:01 12/02/20 11:01 12/02/20 11:01 12/02/20 11:01 Results - Labs CBC & Chem 7: 12/01/20 10:55 12/01/20 11:10 Labs: Abnormal lab results 12/01/20 12/01/20 12/01/20 Range/Units 10:55 10:55 11:10 D-Dimer (0-234) ng/mlDDU Sodium 136 L (137-145) mmol/L Chloride 97.6 L (98-107) mmol/L Glucose 158 H (75-100) mg/dL Ferritin 470.4 H (30.0-300.0) ng/mL AST 136 H (5-40) units/L Lactate Dehydrogenase (91-180) units/L Total Creatine Kinase 605 H 610 H (55-170) units/L CK-MB (CK-2) 14.7 H (0.0-4.0) ng/mL Troponin T 1.910 H* (0.00-0.029) ng/mL C-Reactive Protein (0.00-1.30) mg/dL NT-Pro-B Natriuret Pep 2600 H (0-900) pg/mL Albumin 3.6 L (3.9-5) g/dL HDL Cholesterol 69 H (40-59) mg/dL 12/01/20 12/02/20 12/02/20 Range/Units 11:10 09:41 09:41 D-Dimer 601.99 H (0-234) ng/mlDDU Sodium (137-145) mmol/L Chloride (98-107) mmol/L Glucose 174 H (75-100) mg/dL Ferritin 524.0 H (30.0-300.0) ng/mL AST (5-40) units/L Lactate Dehydrogenase 960 H (91-180) units/L Total Creatine Kinase (55-170) units/L CK-MB (CK-2) (0.0-4.0) ng/mL Troponin T (0.00-0.029) ng/mL C-Reactive Protein 27.50 H (0.00-1.30) mg/dL NT-Pro-B Natriuret Pep (0-900) pg/mL Albumin (3.9-5) g/dL HDL Cholesterol (40-59) mg/dL 12/02/20 Range/Units 09:41 D-Dimer (0-234) ng/mlDDU Sodium (137-145) mmol/L Chloride (98-107) mmol/L Glucose (75-100) mg/dL Ferritin (30.0-300.0) ng/mL AST (5-40) units/L Lactate Dehydrogenase 792 H (91-180) units/L Total Creatine Kinase (55-170) units/L CK-MB (CK-2) (0.0-4.0) ng/mL Troponin T (0.00-0.029) ng/mL C-Reactive Protein 25.10 H (0.00-1.30) mg/dL NT-Pro-B Natriuret Pep (0-900) pg/mL Albumin (3.9-5) g/dL HDL Cholesterol (40-59) mg/dL Assessment and Plan 49 y/o male with STEMI, s/p PCI
[2020-12-02] MEDS ORDERED: VANCOMYCIN 1,000 MG in SODIUM CHLORIDE 0.9% 500 ML 500 ML IV ONE (12:01)
--- NOTE | 2020-12-02 12:03 | Consultation ---
History of Present Illness - Reason for Consult Consult date: 12/02/20 BREANNA COWANI Requesting physician: ESTEFANI HEBERT - History of Present Illness The patient is a 49-year-old male admitted to the hospital with complaints of chest pain, EKG was consistent with STEMI, was seen by cardiology, went to [facility], underwent stenting of circumflex. Also noted to have fever up to 102 F, hence infectious diseases was consulted. He is currently on room air. Only complaint is of pleuritic chest pain as well as left shoulder pain. Labs on admission revealed leukocytosis of 16.7K, D-dimer 601.9, LDH 960, procalcitonin 0.26, COVID-19 PCR is pending. CRP 27.5. Past History Past Medical History: No medical history Medications and Allergies Allergies Allergy/AdvReac Type Severity Reaction Status Date / Time No Known Allergies Allergy Verified 12/01/20 10:40 Home Medications Medication Instructions Recorded Confirmed Last Taken Type No Known Home Medications [No 12/01/20 12/01/20 Unknown History Reported Home Medications] Active Meds: Active Medications Acetaminophen (Acetaminophen 325 Mg Tab) 650 mg PO Q4H PRN PRN Reason: Pain MILD(1-3)/Fever >100.5/[place]ON Last Admin: 12/02/20 07:36 Dose: 650 mg Documented by: Hydrocodone Bitart/Acetaminophen (Hydrocodone/Acetaminophen 5-325 Mg Tab) 1 each PO Q6H PRN PRN Reason: Pain, Moderate (4-6) Last Admin: 12/01/20 21:08 Dose: 1 each Documented by: Aspirin (Aspirin Ec 325 Mg Tab) 325 mg PO QDAY [facility] Last Admin: 12/02/20 09:39 Dose: 325 mg Documented by: Atorvastatin Calcium (Atorvastatin 40 Mg Tab) 40 mg PO QHS [facility] Clopidogrel Bisulfate (Clopidogrel 75 Mg Tab) 75 mg PO QDAY [facility] Last Admin: 12/02/20 09:36 Dose: 75 mg Documented by: Famotidine (Famotidine 20 Mg/2 Ml Inj) 20 mg IV BID [facility] Last Admin: 12/02/20 09:35 Dose: 20 mg Documented by: Hydromorphone HCl (Hydromorphone 1 Mg/1 Ml Inj) 0.5 mg IV Q3H PRN PRN Reason: Pain , Severe (7-10) Nitroglycerin/Dextrose (Tridil Drip 50mg/250ml) 50 mg in 250 mls @ 3 mls/hr IV TITR ONE; Protocol Stop: 12/05/20 01:18 Last Titration: 12/01/20 18:33 Dose: 0 mcg/min, 0 mls/hr Documented by: Ceftriaxone Sodium (Rocephin/Ns 2 Gm/100 Ml) 2 gm in 100 mls @ 200 mls/hr IV Q24HR [facility]; Protocol Last Admin: 12/02/20 09:36 Dose: 200 mls/hr Documented by: Vancomycin HCl 1,000 mg/ (Sodium Chloride) 520 mls @ 333 mls/hr IV ONCE ONE; Protocol Stop: 12/02/20 13:31 Metoprolol Tartrate (Metoprolol Tartrate 25 Mg Tab) 25 mg PO Q6H [facility] Last Admin: 12/02/20 09:36 Dose: 25 mg Documented by: Morphine Sulfate (Morphine 2 Mg/1 Ml Inj) 2 mg IV Q4H PRN PRN Reason: Pain, Moderate (4-6) Last Admin: 12/02/20 07:43 Dose: 2 mg Documented by: Ondansetron HCl (Ondansetron 4 Mg/2 Ml Inj) 4 mg IV Q8H PRN PRN Reason: Nausea And Vomiting Oxycodone/Acetaminophen (Oxycodone /Acetaminophen 5-325mg Tab) 1 tab PO Q6H PRN PRN Reason: Pain, Moderate (4-6) Sodium Chloride (Sodium Chloride 0.9% 10 Ml Flush Syringe) 10 ml IV BID [facility] Last Admin: 12/01/20 21:39 Dose: Not Given Documented by: Sodium Chloride (Sodium Chloride 0.9% 10 Ml Flush Syringe) 10 ml IV PRN PRN PRN Reason: LINE FLUSH Physical Examination - Physical Exam Narrative exam: Physical Exam: Constitutional: Alert, cooperative. No acute distress Head, Ears, Nose: Normocephalic, atraumatic. External ears, nose normal Eyes: Conjunctivae/corneas clear. No icterus. No ptosis. Neck: Supple, no meningeal signs Oral: dentition fair, no thrush Cardiovascular: S1, S2 normal. Respiratory: Good air entry, clear to auscultation bilaterally GI: Soft, non-tender; bowel sounds normal. No peritoneal signs Musculoskeletal: No pedal edema, no cyanosis. Skin: No rash or abscess Hem/Lymphatic: No palpable cervical or supraclavicular nodes. No lymphangitis Psych: Mood ok. Affect normal Neurological: Awake, alert, oriented. No gross abnormality - Constitutional Vitals: Vital Signs Temp Pulse Resp BP Pulse Ox 102.8 F H 89 17 104/64 87 12/02/20 07:00 12/02/20 11:01 12/02/20 11:01 12/02/20 11:01 12/02/20 11:01 Temperature -Last 24 Hours Temperature 102.8 F Temperature 102.8 F Temperature 100 F Temperature 99.2 F Temperature 101.7 F Temperature 98.2 F Results - Labs CBC & Chem 7: 12/01/20 10:55 12/01/20 11:10 Labs: Abnormal lab results 12/01/20 12/01/20 12/01/20 Range/Units 10:55 10:55 11:10 D-Dimer (0-234) ng/mlDDU Ferritin 470.4 H (30.0-300.0) ng/mL Lactate Dehydrogenase (91-180) units/L Total Creatine Kinase 610 H (55-170) units/L CK-MB (CK-2) 14.7 H (0.0-4.0) ng/mL C-Reactive Protein (0.00-1.30) mg/dL NT-Pro-B Natriuret Pep 2600 H (0-900) pg/mL HDL Cholesterol 69 H (40-59) mg/dL 12/02/20 12/02/20 12/02/20 Range/Units 09:41 09:41 09:41 D-Dimer 601.99 H (0-234) ng/mlDDU Ferritin 524.0 H (30.0-300.0) ng/mL Lactate Dehydrogenase 792 H (91-180) units/L Total Creatine Kinase (55-170) units/L CK-MB (CK-2) (0.0-4.0) ng/mL C-Reactive Protein 25.10 H (0.00-1.30) mg/dL NT-Pro-B Natriuret Pep (0-900) pg/mL HDL Cholesterol (40-59) mg/dL - Imaging and Cardiology Chest x-ray: report reviewed, image reviewed (no obvious pneumonia seen) Assessment and Plan Cultures: SARS CoV2 PCR: Pending 12/01/2020 blood culture: No growth A/P: 49-year-old male admitted to the hospital with complaints of chest pain, EKG was consistent with STEMI, was seen by cardiology, went to [facility], underwent stenting of circumflex: #Sepsis/Fever: Etiology unclear. Rule out COVID, bacterial infection. #STEMI: s/p PCI Recs: -Empiric ceftriaxone -Vancomycin added -f/u blood cultures -Follow-up COVID-19 PCR, even if positive, since he is not hypoxic, would not initiate remdesivir or steroids Zac Talavera MD, FACP [facility] O: [phone] F: [phone]
[2020-12-02] MEDS ORDERED: LORazepam 2 MG TAB PO PRN ×2 (12:54)
[2020-12-02] MEDS ORDERED: LORazepam 2 MG/ML VIAL IV PRN (12:54)
[2020-12-02] MEDS ORDERED: VANCOMYCIN PHARMACY TO DOSE IV SCH (13:00)
[2020-12-02] MEDS ORDERED: VANCOMYCIN 1,250 MG in SODIUM CHLORIDE 0.9% 250ML 250 ML IV ONE (13:00)
--- NOTE | 2020-12-02 13:29 | Progress Note ---
Assessment and Plan - Patient Problems (1) Acute coronary syndrome Current Visit: No Status: Acute Plan to address problem: Patient presented with 3 days of chest pain, cough and fever. Febrile 101 in the emergency room. White count 16,000. EKG showed QS complexes and ST elevations inferolateral leads consistent with a recent myocardial infarction, which likely occurred 3 days ago. Status post cardiac catheterization with successful angioplasty and stenting of the mid circumflex artery occlusion. A 3.5 mm drug-eluting stent was deployed. We will continue guideline directed medical therapy including dual oral therapy with aspirin and Plavix. Echocardiogram will be done for left ventricular function assessment and valvular function. The patient has a proximal LAD stenosis of borderline severity, which will be managed conservatively in the setting of persistent fever. Subjective Date of service: 12/02/20 Interval history: Patient has no further chest pain, looks and feels better. He continues to be febrile, up to 102 Fahrenheit. Infectious disease has been consulted for the persistent fever. Objective Vital Signs Temp Pulse Pulse Resp BP Pulse Ox 12/02/20 11:01 89 17 104/64 87 12/02/20 10:00 104 H 36 H 112/79 97 12/02/20 09:36 92 H 104/70 12/02/20 09:00 100 H 15 109/65 96 12/02/20 08:00 98 H 12 93/53 93 12/02/20 07:43 16 12/02/20 07:42 98 12/02/20 07:00 102.8 F H 94 H 19 112/72 96 12/02/20 06:00 92 H 12 104/70 95 12/02/20 05:00 93 H 19 108/65 95 12/02/20 04:00 100 F H 92 H 94 H 18 110/75 96 12/02/20 03:00 94 H 22 113/80 94 12/02/20 02:00 91 H 20 115/78 95 12/02/20 01:00 89 21 115/78 97 12/02/20 00:30 95 H 12 113/73 95 12/02/20 00:05 93 H 24 112/77 96 12/02/20 00:00 99.2 F 89 90 16 112/77 96 12/01/20 23:31 90 14 114/73 97 12/01/20 23:00 95 H 23 114/73 95 05/05/21 22:31 96 H 15 113/73 95 05/05/21 22:00 94 H 20 118/81 96 05/05/21 21:37 97 05/05/21 21:30 99 H 14 113/73 96 05/05/21 21:08 99 H 107/74 05/05/21 21:00 97 H 15 107/74 97 05/05/21 20:56 101.7 F H 05/05/21 20:30 98 H 11 L 109/79 95 05/05/21 20:00 102 H 23 116/78 95 05/05/21 19:30 92 H 20 122/82 05/05/21 19:18 98 H 98 05/05/21 19:11 96 H 23 115/80 97 05/05/21 19:00 93 H 19 119/81 98 05/05/21 18:51 97 H 21 115/80 97 05/05/21 18:40 96 H 21 120/80 98 05/05/21 18:30 98 H 17 118/91 98 05/05/21 18:21 94 H 18 115/84 99 05/05/21 18:11 91 H 16 120/80 98 05/05/21 18:00 93 H 17 118/80 98 05/05/21 17:51 95 H 17 114/77 98 05/05/21 17:46 98.2 F 05/05/21 17:41 97 H 16 120/80 98 05/05/21 17:30 91 H 17 120/80 05/05/21 17:21 95 H 19 98 05/05/21 17:10 97 H 18 111/77 97 05/05/21 17:00 93 H 18 111/77 99 05/05/21 16:50 102 H 13 114/78 99 05/05/21 16:40 86 16 113/81 98 05/05/21 16:30 87 18 113/81 97 05/05/21 16:20 87 22 123/81 96 05/05/21 16:10 90 17 103/76 98 05/05/21 16:00 89 21 116/74 93 05/05/21 15:50 85 15 106/80 98 05/05/21 15:40 85 15 100/64 98 05/05/21 15:30 85 10 L 100/64 91 05/05/21 15:20 84 9 L 103/76 99 12/01/20 15:10 78 11 L 105/69 97 12/01/20 15:00 83 10 L 105/69 98 12/01/20 14:50 78 13 104/62 99 12/01/20 14:40 73 14 104/69 98 12/01/20 14:30 78 10 L 104/69 96 12/01/20 14:20 81 13 99/57 98 12/01/20 14:10 75 21 98/61 98 12/01/20 14:03 98 - Physical Examination General: No Apparent Distress HEENT: Positive: PERRL Neck: Positive: neck supple Cardiac: Positive: Reg Rate and Rhythm Lungs: Positive: Decreased Breath Sounds Neuro: Positive: Grossly Intact Abdomen: Positive: Soft Skin: Positive: Clear Extremities: Absent: edema - Labs and Meds Cardiac Enzymes 12/02/20 Range/Units 09:41 Lactate Dehydrogenase 792 H (91-180) units/L - Imaging and Cardiology EKG: report reviewed (EKG consistent with inferior lateral infarction)
--- NOTE | 2020-12-02 16:11 | Progress Note ---
Assessment and Plan Assessment and plan: 49-year-old male with tobacco and EtOH dependence admitted for STEMI s/p thrombectomy, primary angioplasty and stent deployment x1 and COVID-19 PUI STEMI s/p PCI with thrombectomy and POLO deployment Sepsis/fever Leukocytosis Hyponatremia Hypochloremia Hyperglycemia EtOH and tobacco abuse -[facility], cardiology, infectious disease consulted, appreciate recommendations -12/01 COVID-19 PCR negative -12/01 echocardiogram shows the ventricular moderate dilated, left ventricle systolic function is mildly decreased, borderline left ventricular hypertrophy, LVEF 35 to 40%, mild to moderate MR, trace to mild AR, trace to mild TR, RVSP normal at 22 mmHg -12/01 cardiac cath revealed 2 vessel disease with 100% occlusion of the mid circumflex as the infarct-related lesion, severe cardiomyopathy with low ventricular ejection fraction 20%, successful primary angioplasty and stenting of the circumflex including a successful thumb back to me using a export catheter, nonocclusive disease of the proximal LAD will be considered for medical management versus second vessel staged intervention if clinically indicated -[facility] protocol -S/p PCI with POLO deployment x1 and thrombectomy -S/p Aggrastat drip -Statin, Plavix, Imdur, lisinopril, metoprolol, aspirin -ABX therapy with vancomycin and ceftriaxone -Medical management of LAD stenosis -[facility] protocol -Tobacco and EtOH cessation education -Trend troponin, CK/CK-MB, BMP,CBC DVT/GI prophylaxis: PPI, SCDs to bilateral legs while in bed Disposition: ICU, can transfer to floor. The high probability of a clinically significant, sudden or life threatening deterioration of the [cardio] system(s) required my full and direct attention, intervention and personal management. The aggregate critical care time was [35] minutes. This time is in addition to time spent performing reported procedures but includes the following: [x] Data Review and interpretation [x] Patient assessment and monitoring of vital signs [x] Documentation [x] Medication orders and management History Interval history: This is a 49-year-old male with tobacco and EtOH dependence who presented to the emergency department on 12/01 with complaints of substernal chest pain with radiation to both arms associated with tingling for 3 days prior to presentation which has been intermittent in nature and rated at a 8/10 with low-grade fevers and diaphoresis. In the emergency department ECG was consistent with a STEMI and he was found to be febrile with tachycardia given IV Rocephin. Patient was taken to the cardiac Card Maker emergently where catheterization revealed two- vessel disease with 100% occlusion of the mid circumflex as the infarct-related lesion and nonocclusive disease of proximal LAD. He received primary angioplasty and a stent to the circumflex artery with successful thrombectomy. Patient was admitted to the hospital service with consults to cardiology, CCM and infectious disease as a COVID-19 PUI, STEMI s/p angioplasty, stent and thrombectomy. 12/02: s/p PCI with thrombectomy and deployment of POLO. Patient complained of ro[address] st pain and ECG showed left ventricular hypertrophy. Patient has been cleared to be transferred to the floor by cardiology. COVID-19 PCR negative. Initiated CIWA protocol as patient has a history of EtOH use (more than 12 pack of beer every weekend, 5 to 6 cans of beer daily) Hospitalist Physical - Constitutional Vitals: Temp Pulse Resp BP Pulse Ox 102.8 F H 93 H 27 H 106/62 96 12/02/20 07:00 12/02/20 15:00 12/02/20 15:00 12/02/20 15:00 12/02/20 15:00 General appearance: Present: no acute distress, well-nourished - EENT Eyes: Present: PERRL, EOM intact ENT: clear oral mucosa, dentition normal - Neck Neck: Present: normal ROM - Respiratory Respiratory effort: normal Respiratory: bilateral: CTA - Cardiovascular Rhythm: regular Heart Sounds: Present: S1 & S2. Absent: systolic murmur, diastolic murmur - Extremities Extremities: no ischemia, pulses intact, pulses symmetrical, No edema, normal temperature, normal color, Full ROM Peripheral Pulses: within normal limits - Abdominal General gastrointestinal: soft, non-tender, non-distended, normal bowel sounds - Integumentary Integumentary: Present: clear, warm, dry - Psychiatric Psychiatric: appropriate mood/affect, cooperative - Neurologic Neurologic: CNII-XII intact, no focal deficits, moves all extremities - Allied Health Allied health notes reviewed: nursing, social work HEART Score - HEART Score EKG: Significant ST-depression Age: 45-65 Risk factors: 1-2 risk factors Troponin: Troponin T 1.910 ng/mL (0.00-0.029) H* 12/01/20 10:55 Troponin: 1-3x normal limit - Critical Actions Critical Actions: >7 pts:50-65% risk of adverse cardiac event. Early invasive measures Results - Labs CBC & Chem 7: 12/01/20 10:55 12/01/20 11:10 Labs: Laboratory Last Values WBC 16.7 K/mm3 (4.5-11.0) H 12/01/20 10:55 RBC 5.06 M/mm3 (3.65-5.03) H 12/01/20 10:55 Hgb 16.1 gm/dl (11.8-15.2) H 12/01/20 10:55 Hct 47.6 % (35.5-45.6) H 12/01/20 10:55 MCV 94 fl (84-94) 12/01/20 10:55 MCH 32 pg (28-32) 12/01/20 10:55 MCHC 34 % (32-34) 12/01/20 10:55 RDW 13.1 % (13.2-15.2) L 12/01/20 10:55 Plt Count 226 K/mm3 (140-440) 12/01/20 10:55 Lymph % (Auto) 10.6 % (13.4-35.0) L 12/01/20 10:55 [place] % (Auto) 10.2 % (0.0-7.3) H 12/01/20 10:55 Eos % (Auto) 0.0 % (0.0-4.3) 12/01/20 10:55 Baso % (Auto) 0.4 % (0.0-1.8) 12/01/20 10:55 Lymph # (Auto) 1.8 K/mm3 (1.2-5.4) 12/01/20 10:55 [place] # (Auto) 1.7 K/mm3 (0.0-0.8) H 12/01/20 10:55 Eos # (Auto) 0.0 K/mm3 (0.0-0.4) 12/01/20 10:55 Baso # (Auto) 0.1 K/mm3 (0.0-0.1) 12/01/20 10:55 Seg Neutrophils % 78.8 % (40.0-70.0) H 12/01/20 10:55 Seg Neutrophils # 13.1 K/mm3 (1.8-7.7) H 12/01/20 10:55 PT 13.8 Sec. (12.2-14.9) 12/01/20 11:11 INR 1.07 (0.87-1.13) 12/01/20 11:11 APTT 32.0 Sec. (24.2-36.6) 12/01/20 11:11 D-Dimer 601.99 ng/mlDDU (0-234) H 12/02/20 09:41 Sodium 136 mmol/L (137-145) L 12/01/20 10:55 Potassium 3.9 mmol/L (3.6-5.0) 12/01/20 10:55 Chloride 97.6 mmol/L (98-107) L 12/01/20 10:55 Carbon Dioxide 27 mmol/L (22-30) 12/01/20 10:55 Anion Gap 15 mmol/L 12/01/20 10:55 BUN 14 mg/dL (9-20) 12/01/20 10:55 Creatinine 0.9 mg/dL (0.8-1.3) 12/01/20 10:55 Estimated GFR > 60 ml/min 12/01/20 10:55 BUN/Creatinine Ratio 16 % 12/01/20 10:55 Glucose 174 mg/dL (75-100) H 12/01/20 11:10 Hemoglobin A1c 5.9 % (4-6) 12/01/20 15:07 Lactic Acid 1.30 mmol/L (0.7-2.0) 12/01/20 10:55 Calcium 8.9 mg/dL (8.4-10.2) 12/01/20 10:55 Magnesium 1.70 mg/dL (1.7-2.3) 12/01/20 10:55 Ferritin 524.0 ng/mL (30.0-300.0) H 12/02/20 09:41 Total Bilirubin 0.80 mg/dL (0.1-1.2) 12/01/20 10:55 AST 136 units/L (5-40) H 12/01/20 10:55 ALT 46 units/L (7-56) 12/01/20 10:55 Alkaline Phosphatase 70 units/L (35-129) 12/01/20 10:55 Lactate Dehydrogenase 792 units/L (91-180) H 12/02/20 09:41 Total Creatine Kinase 605 units/L (55-170) H 12/01/20 10:55 Total Creatine Kinase 610 units/L (55-170) H 12/01/20 10:55 CK-MB (CK-2) 14.7 ng/mL (0.0-4.0) H 12/01/20 10:55 CK-MB (CK-2) Rel Index 2.4 (0-4) 12/01/20 10:55 Troponin T 1.910 ng/mL (0.00-0.029) H* 12/01/20 10:55 C-Reactive Protein 25.10 mg/dL (0.00-1.30) H 12/02/20 09:41 NT-Pro-B Natriuret Pep 2600 pg/mL (0-900) H 12/01/20 10:55 Total Protein 8.2 g/dL (6.3-8.2) 12/01/20 10:55 Albumin 3.6 g/dL (3.9-5) L 12/01/20 10:55 Albumin/Globulin Ratio 0.8 % 12/01/20 10:55 Triglycerides 54 mg/dL (2-149) 12/01/20 10:55 Cholesterol 161 mg/dL (50-199) 12/01/20 10:55 LDL Cholesterol Direct 97 mg/dL (50-130) 12/01/20 10:55 HDL Cholesterol 69 mg/dL (40-59) H 12/01/20 10:55 Cholesterol/HDL Ratio 2.33 % 12/01/20 10:55 Procalcitonin 0.26 ng/mL (<0.15) 12/02/20 09:41 Coronavirus (PCR) Negative (Negative) 12/01/20 09:30 Microbiology: Microbiology 12/01/20 11:00 Peripheral/Venous Blood Culture - Preliminary NO GROWTH AFTER 24 HOURS 12/01/20 11:00 Peripheral/Venous Blood Culture - Preliminary NO GROWTH AFTER 24 HOURS Active Medications - Current Medications Current Medications: Generic Name Dose Route Start Last Admin Trade Name Freq PRN Reason Stop Dose Admin Acetaminophen 650 mg 12/01/20 13:30 12/02/20 07:36 Acetaminophen 325 Mg Tab PO 650 mg Q4H PRN Administration Pain MILD(1-3)/Fever >100.5/GIBSON Hydrocodone Bitart/Acetaminophen 1 each 12/01/20 13:58 12/01/20 21:08 Hydrocodone/Acetaminophen 5-325 Mg Tab PO 1 each Q6H PRN Administration Pain, Moderate (4-6) Aspirin 325 mg 12/02/20 10:00 12/02/20 09:39 Aspirin Ec 325 Mg Tab PO 325 mg QDAY ABIMAEL Administration Atorvastatin Calcium 40 mg 12/02/20 22:00 Atorvastatin 40 Mg Tab PO QHS ABIMAEL Clopidogrel Bisulfate 75 mg 12/02/20 10:00 12/02/20 09:36 Clopidogrel 75 Mg Tab PO 75 mg QDAY ABIMAEL Administration Famotidine 20 mg 12/01/20 14:00 12/02/20 09:35 Famotidine 20 Mg/2 Ml Inj IV 20 mg BID ABIMAEL Administration Ceftriaxone Sodium 2 gm in 100 mls @ 200 mls/hr 12/02/20 10:00 12/02/20 09:36 Rocephin/Ns 2 Gm/100 Ml IV 200 mls/hr Q24HR ABIMAEL Administration Protocol Vancomycin HCl 1 gm in 250 mls @ 166.667 mls/hr 12/03/20 01:00 Vancomycin/Ns 1 Gm/250 Ml IV Q12H ABIMAEL Isosorbide Mononitrate 30 mg 12/02/20 14:00 Isosorbide Mononitrate Er 30 Mg Tab PO QDAY ABIMAEL Lisinopril 2.5 mg 12/03/20 10:00 Lisinopril 5 Mg Tab PO QDAY ABIMAEL Lorazepam 2 mg 12/02/20 12:54 Lorazepam 2 Mg Tab PO Q1HR PRN CIWA-Ar 8-15 Lorazepam 4 mg 12/02/20 12:54 Lorazepam 2 Mg Tab PO Q1HR PRN CIWA-Ar 16-25 Lorazepam 4 mg 12/02/20 12:54 Lorazepam 2 Mg/Ml Vial IV Q15MIN PRN CIWA-Ar >25 Metoprolol Tartrate 25 mg 12/01/20 15:00 12/02/20 09:36 Metoprolol Tartrate 25 Mg Tab PO 25 mg Q6H ABIMAEL Administration Morphine Sulfate 2 mg 12/01/20 13:30 12/02/20 07:43 Morphine 2 Mg/1 Ml Inj IV 2 mg Q4H PRN Administration Pain, Moderate (4-6) Ondansetron HCl 4 mg 12/01/20 14:00 Ondansetron 4 Mg/2 Ml Inj IV Q8H PRN Nausea And Vomiting Oxycodone/Acetaminophen 1 tab 12/01/20 14:00 Oxycodone /Acetaminophen 5-325mg Tab PO Q6H PRN Pain, Moderate (4-6) Sodium Chloride 10 ml 12/01/20 22:00 12/02/20 12:06 Sodium Chloride 0.9% 10 Ml Flush Syringe IV 10 ml BID ABIMAEL Administration Sodium Chloride 10 ml 12/01/20 13:16 Sodium Chloride 0.9% 10 Ml Flush Syringe IV PRN PRN LINE FLUSH
[2020-12-02 16:44] LABS: Alanine Aminotransferase 37 units/L (7-56)
[2020-12-02 16:46] LABS: Creatine Kinase MB 16.8 ng/mL (0.0-4.0)
[2020-12-02 16:54] LABS: Bilirubin,Direct < 0.2 mg/dL (0-0.2)
--- NOTE | 2020-12-02 17:43 | Electrocardiograph Report ---
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 No previous ECG available for comparison Electronically Signed On 12-02-2020 17:43:41 EDT by Caleb Larson
--- NOTE | 2020-12-02 17:59 | Electrocardiograph Report ---
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 ST (T wave) deviation no longer present Myocardial infarct finding still present Electronically Signed On 12-02-2020 17:59:22 EDT by Caleb Larson
[2020-12-02 22:44] LABS: Bilirubin,Urine NEG (Negative); Blood,Urine NEG (Negative); Color,Urine Yellow (Yellow); Mucus,Urine FEW /HPF
[2020-12-02] MEDS: HYDROcodone/ACETAMINOPHEN 5-325 MG TAB PO PRN (23:04)
[2020-12-03] MEDS: METOPROLOL TARTRATE 25 MG TAB PO SCH ×4 (03:00→23:00)
[2020-12-03] MEDS: VANCOMYCIN/NS 1 GM/250 ML 1 GM/250 ML BAG IV SCH (05:20)
[2020-12-03] MEDS: ACETAMINOPHEN 325 MG TAB PO PRN (05:23)
[2020-12-03 06:07] LABS: Hematocrit 39.7 % (35.5-45.6); Hemoglobin 13.1 gm/dl (11.8-15.2)
--- NOTE | 2020-12-03 10:16 | Progress Note ---
Assessment and Plan - Patient Problems (1) Acute coronary syndrome Current Visit: No Status: Acute Plan to address problem: Patient presented with 3 days of chest pain, cough and fever. Febrile 101 in the emergency room. White count 16,000. EKG showed QS complexes and ST elevations inferolateral leads consistent with a recent myocardial infarction, which likely occurred 3 days ago. Status post cardiac catheterization with successful angioplasty and stenting of the mid circumflex artery occlusion. A 3.5 mm drug-eluting stent was deployed. On dual oral therapy with aspirin and Plavix. Echocardiogram done shows mildly dilated LA with a decreased LV systolic function, ejection fraction 35-40%. Recommendations: The patient has a proximal LAD stenosis of borderline severity, which will be managed conservatively in the setting of persistent fever. We will continue guideline directed medical therapy for coronary artery disease and ischemic cardiomyopathy. Subjective Date of service: 12/03/20 Interval history: Patient denies chest pain and denies shortness of breath. Still febrile with temperature of 100.3 today. Objective Vital Signs Temp Pulse Pulse Resp BP Pulse Ox 12/03/20 08:47 98 12/03/20 08:43 97.8 F 87 18 107/76 96 12/03/20 05:23 20 12/03/20 04:17 100.3 F H 18 104/69 12/03/20 00:00 87 90 98 12/02/20 23:09 87 103/63 12/02/20 23:03 99.5 F 88 18 101/64 93 12/02/20 19:48 99.1 F 87 18 103/63 95 12/02/20 18:00 112/74 95 12/02/20 17:22 101.9 F H 12/02/20 17:00 116/79 96 12/02/20 16:36 80 110/71 12/02/20 16:00 80 90 20 110/71 97 12/02/20 15:00 93 H 27 H 106/62 96 12/02/20 14:30 101 H 110/72 12/02/20 14:00 86 13 103/67 98 12/02/20 13:00 84 14 103/73 96 12/02/20 12:00 90 90 21 104/64 96 12/02/20 11:01 89 17 104/64 87 - Physical Examination General: No Apparent Distress HEENT: Positive: PERRL Neck: Positive: neck supple Cardiac: Positive: Reg Rate and Rhythm Lungs: Positive: Normal Breath Sounds Neuro: Positive: Grossly Intact Abdomen: Positive: Soft Extremities: Absent: edema - Labs and Meds Cardiac Enzymes 12/02/20 12/02/20 12/02/20 Range/Units 09:41 16:01 16:01 AST 93 H (5-40) units/L Lactate Dehydrogenase 792 H (91-180) units/L CK-MB (CK-2) 16.8 H (0.0-4.0) ng/mL 12/02/20 Range/Units 22:29 AST (5-40) units/L Lactate Dehydrogenase (91-180) units/L CK-MB (CK-2) 10.0 H (0.0-4.0) ng/mL CBC 12/03/20 Range/Units 05:40 Hgb 13.1 D (11.8-15.2) gm/dl Hct 39.7 D (35.5-45.6) % Plt Count 241 (140-440) K/mm3 Comprehensive Metabolic Panel 12/02/20 Range/Units 16:01 Direct Bilirubin < 0.2 (0-0.2) mg/dL Indirect Bilirubin 0.2 mg/dL AST 93 H (5-40) units/L ALT 37 (7-56) units/L Alkaline Phosphatase 74 (35-129) units/L Total Protein 6.0 L D (6.3-8.2) g/dL Albumin 3.0 L (3.9-5) g/dL
--- NOTE | 2020-12-03 10:43 | Progress Note ---
Assessment and Plan Assessment and plan: 49-year-old male with tobacco and EtOH dependence admitted for STEMI s/p thrombectomy, primary angioplasty and stent deployment x1 and COVID-19 PUI STEMI s/p PCI with thrombectomy and POLO deployment Sepsis/fever Leukocytosis Hyponatremia Hypochloremia Hyperglycemia EtOH and tobacco abuse -CCM, cardiology, infectious disease consulted, appreciate recommendations -12/01 COVID-19 PCR negative -12/01 echocardiogram shows the ventricular moderate dilated, left ventricle systolic function is mildly decreased, borderline left ventricular hypertrophy, LVEF 35 to 40%, mild to moderate MR, trace to mild AR, trace to mild TR, RVSP normal at 22 mmHg -12/01 cardiac cath revealed 2 vessel disease with 100% occlusion of the mid circumflex as the infarct-related lesion, severe cardiomyopathy with low ventricular ejection fraction 20%, successful primary angioplasty and stenting of the circumflex including a successful thumb back to me using a export catheter, nonocclusive disease of the proximal LAD will be considered for medical management versus second vessel staged intervention if clinically indicated -[facility] protocol -S/p PCI with POLO deployment x1 and thrombectomy -S/p Aggrastat drip -Statin, Plavix, Imdur, lisinopril, metoprolol, aspirin -ABX therapy with vancomycin and ceftriaxone -Medical management of LAD stenosis -[facility] protocol -Tobacco and EtOH cessation education -Trend troponin, CK/CK-MB, BMP,CBC DVT/GI prophylaxis: PPI, SCDs to bilateral legs while in bed Disposition: ICU, can transfer to floor. History Interval history: This is a 49-year-old male with tobacco and EtOH dependence who presented to the emergency department on 12/01 with complaints of substernal chest pain with radiation to both arms associated with tingling for 3 days prior to presentation which has been intermittent in nature and rated at a 8/10 with low-grade fevers and diaphoresis. In the emergency department ECG was consistent with a STEMI and he was found to be febrile with tachycardia given IV Rocephin. Patient was taken to the cardiac Ultrasound Applications Specialist emergently where catheterization revealed two- vessel disease with 100% occlusion of the mid circumflex as the infarct-related lesion and nonocclusive disease of proximal LAD. He received primary angioplasty and a stent to the circumflex artery with successful thrombectomy. Patient was admitted to the hospital service with consults to cardiology, CCM and infectious disease as a COVID-19 PUI, STEMI s/p angioplasty, stent and thrombectomy. 12/02: s/p PCI with thrombectomy and deployment of POLO. Patient complained of chest pain and ECG showed left ventricular hypertrophy. Patient has been cleared to be transferred to the floor by cardiology. COVID-19 PCR negative. Initiated CIWA protocol as patient has a history of EtOH use (more than 12 pack of beer every weekend, 5 to 6 cans of beer daily 12/03/2020; status post PCI, with stent placement. Cardiology is following the patient and cleared him for discharge with the plan to follow as an outpatient. Patient has still has fever and is followed with ID, blood cultures are negative, urine cultures negative. ID recommended to continue with ceftriaxone and vancomycin. Disposition we will continue inpatient care keep patient is fever free for 24 hours and will follow ID recommendations. History Interval history: Patient was seen and evaluated this morning Patient had fever overnight No chest pain. Hospitalist Physical - Physical exam Narrative exam: Not in cardiopulmonary distress. The patient appeared well nourished and normally developed. Vital signs as documented. Head exam is unremarkable. No scleral icterus . Neck is without jugular venous distension, thyromegaly, or carotid bruits. Lungs are clear to auscultation. Cardiac exam reveals regular rate and Rhythm. Abdominal exam reveals normal bowel sounds, nontender, no organomegaly. Extremities are nonedematous and both femoral and pedal pulses are normal. 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 No focal weakness. - Constitutional Vitals: Temp Pulse Resp BP Pulse Ox 97.8 F 87 18 107/76 98 12/03/20 08:43 12/03/20 08:43 12/03/20 08:43 12/03/20 08:43 12/03/20 08:47 General appearance: Present: no acute distress, well-nourished HEART Score - HEART Score EKG: Significant ST-depression Age: 45-65 Risk factors: 1-2 risk factors Troponin: Troponin T 2.190 ng/mL (0.00-0.029) H* 12/02/20 22:29 Troponin: 1-3x normal limit - Critical Actions Critical Actions: >7 pts:50-65% risk of adverse cardiac event. Early invasive measures Results - Labs CBC & Chem 7: 12/03/20 05:40 12/01/20 11:10 Labs: Laboratory Last Values WBC 16.7 K/mm3 (4.5-11.0) H 12/01/20 10:55 RBC 5.06 M/mm3 (3.65-5.03) H 12/01/20 10:55 Hgb 13.1 gm/dl (11.8-15.2) D 12/03/20 05:40 Hct 39.7 % (35.5-45.6) D 12/03/20 05:40 MCV 94 fl (84-94) 12/01/20 10:55 MCH 32 pg (28-32) 12/01/20 10:55 MCHC 34 % (32-34) 12/01/20 10:55 RDW 13.1 % (13.2-15.2) L 12/01/20 10:55 Plt Count 241 K/mm3 (140-440) 12/03/20 05:40 Lymph % (Auto) 10.6 % (13.4-35.0) L 12/01/20 10:55 [place] % (Auto) 10.2 % (0.0-7.3) H 12/01/20 10:55 Eos % (Auto) 0.0 % (0.0-4.3) 12/01/20 10:55 Baso % (Auto) 0.4 % (0.0-1.8) 12/01/20 10:55 Lymph # (Auto) 1.8 K/mm3 (1.2-5.4) 12/01/20 10:55 [place] # (Auto) 1.7 K/mm3 (0.0-0.8) H 12/01/20 10:55 Eos # (Auto) 0.0 K/mm3 (0.0-0.4) 12/01/20 10:55 Baso # (Auto) 0.1 K/mm3 (0.0-0.1) 12/01/20 10:55 Seg Neutrophils % 78.8 % (40.0-70.0) H 12/01/20 10:55 Seg Neutrophils # 13.1 K/mm3 (1.8-7.7) H 12/01/20 10:55 PT 13.8 Sec. (12.2-14.9) 12/01/20 11:11 INR 1.07 (0.87-1.13) 12/01/20 11:11 APTT 32.0 Sec. (24.2-36.6) 12/01/20 11:11 D-Dimer 601.99 ng/mlDDU (0-234) H 12/02/20 09:41 Sodium 136 mmol/L (137-145) L 12/01/20 10:55 Potassium 3.9 mmol/L (3.6-5.0) 12/01/20 10:55 Chloride 97.6 mmol/L (98-107) L 12/01/20 10:55 Carbon Dioxide 27 mmol/L (22-30) 12/01/20 10:55 Anion Gap 15 mmol/L 12/01/20 10:55 BUN 14 mg/dL (9-20) 12/01/20 10:55 Creatinine 0.9 mg/dL (0.8-1.3) 12/01/20 10:55 Estimated GFR > 60 ml/min 12/01/20 10:55 BUN/Creatinine Ratio 16 % 12/01/20 10:55 Glucose 174 mg/dL (75-100) H 12/01/20 11:10 Hemoglobin A1c 5.9 % (4-6) 12/01/20 15:07 Lactic Acid 1.30 mmol/L (0.7-2.0) 12/01/20 10:55 Calcium 8.9 mg/dL (8.4-10.2) 12/01/20 10:55 Phosphorus 2.80 mg/dL (2.5-4.5) 12/02/20 16:01 Magnesium 1.90 mg/dL (1.7-2.3) 12/02/20 16:01 Ferritin 524.0 ng/mL (30.0-300.0) H 12/02/20 09:41 Total Bilirubin 0.40 mg/dL (0.1-1.2) 12/02/20 16:01 Direct Bilirubin < 0.2 mg/dL (0-0.2) 12/02/20 16:01 Indirect Bilirubin 0.2 mg/dL 12/02/20 16:01 AST 93 units/L (5-40) H 12/02/20 16:01 ALT 37 units/L (7-56) 12/02/20 16:01 Alkaline Phosphatase 74 units/L (35-129) 12/02/20 16:01 Lactate Dehydrogenase 792 units/L (91-180) H 12/02/20 09:41 Total Creatine Kinase 343 units/L (55-170) H 12/02/20 22:29 CK-MB (CK-2) 10.0 ng/mL (0.0-4.0) H 12/02/20 22:29 CK-MB (CK-2) Rel Index 2.9 (0-4) 12/02/20 22:29 Troponin T 2.190 ng/mL (0.00-0.029) H* 12/02/20 22:29 C-Reactive Protein 25.10 mg/dL (0.00-1.30) H 12/02/20 09:41 NT-Pro-B Natriuret Pep 2600 pg/mL (0-900) H 12/01/20 10:55 Total Protein 6.0 g/dL (6.3-8.2) L D 12/02/20 16:01 Albumin 3.0 g/dL (3.9-5) L 12/02/20 16:01 Albumin/Globulin Ratio 1.0 % 12/02/20 16:01 Triglycerides 54 mg/dL (2-149) 12/01/20 10:55 Cholesterol 161 mg/dL (50-199) 12/01/20 10:55 LDL Cholesterol Direct 97 mg/dL (50-130) 12/01/20 10:55 HDL Cholesterol 69 mg/dL (40-59) H 12/01/20 10:55 Cholesterol/HDL Ratio 2.33 % 12/01/20 10:55 Procalcitonin 0.26 ng/mL (<0.15) 12/02/20 09:41 Urine Color Yellow (Yellow) 12/02/20 19:00 Urine Turbidity Clear (Clear) 12/02/20 19:00 Urine pH 6.0 (5.0-7.0) 12/02/20 19:00 Ur Specific [place] 1.023 (1.003-1.030) 12/02/20 19:00 Urine Protein 100 mg/dl mg/dL (Negative) 12/02/20 19:00 Urine Glucose (UA) Neg mg/dL (Negative) 12/02/20 19:00 Urine Ketones Neg mg/dL (Negative) 12/02/20 19:00 Urine Blood Neg (Negative) 12/02/20 19:00 Urine Nitrite Neg (Negative) 12/02/20 19:00 Urine Bilirubin Neg (Negative) 12/02/20 19:00 Urine Urobilinogen 4.0 mg/dL (<2.0) 12/02/20 19:00 Ur Leukocyte Esterase Neg (Negative) 12/02/20 19:00 Urine WBC (Auto) 1.0 /HPF (0.0-6.0) 12/02/20 19:00 Urine RBC (Auto) 1.0 /HPF (0.0-6.0) 12/02/20 19:00 Urine Mucus Few /HPF 12/02/20 19:00 Coronavirus (PCR) Negative (Negative) 12/01/20 09:30 Microbiology: Microbiology 12/01/20 11:00 Peripheral/Venous Blood Culture - Preliminary NO GROWTH AFTER 24 HOURS 12/01/20 11:00 Peripheral/Venous Blood Culture - Preliminary NO GROWTH AFTER 24 HOURS Izquierdo/IV: Voiding Method Toilet Active Medications - Current Medications Current Medications: Generic Name Dose Route Start Last Admin Trade Name Freq PRN Reason Stop Dose Admin Acetaminophen 650 mg 12/01/20 13:30 12/03/20 05:23 Acetaminophen 325 Mg Tab PO 650 mg Q4H PRN Administration Pain MILD(1-3)/Fever >100.5/GIBSON Hydrocodone Bitart/Acetaminophen 1 each 12/01/20 13:58 12/02/20 23:04 Hydrocodone/Acetaminophen 5-325 Mg Tab PO 1 each Q6H PRN Administration Pain, Moderate (4-6) Aspirin 325 mg 12/02/20 10:00 12/02/20 09:39 Aspirin Ec 325 Mg Tab PO 325 mg QDAY ABIMAEL Administration Atorvastatin Calcium 40 mg 12/02/20 22:00 12/02/20 23:03 Atorvastatin 40 Mg Tab PO 40 mg QHS ABIMAEL Administration Clopidogrel Bisulfate 75 mg 12/02/20 10:00 12/02/20 09:36 Clopidogrel 75 Mg Tab PO 75 mg QDAY ABIMAEL Administration Famotidine 20 mg 12/03/20 10:00 Famotidine 20 Mg Tab PO BID ABIMAEL Ceftriaxone Sodium 2 gm in 100 mls @ 200 mls/hr 12/02/20 10:00 12/02/20 09:36 Rocephin/Ns 2 Gm/100 Ml IV 200 mls/hr Q24HR ABIMAEL Administration Protocol Vancomycin HCl 1 gm in 250 mls @ 166.667 mls/hr 12/03/20 01:00 12/03/20 05:20 Vancomycin/Ns 1 Gm/250 Ml IV 166.667 mls/hr Q12H ABIMAEL Administration Isosorbide Mononitrate 30 mg 12/02/20 14:00 12/02/20 14:30 Isosorbide Mononitrate Er 30 Mg Tab PO 30 mg QDAY ABIMAEL Administration Lisinopril 2.5 mg 12/03/20 10:00 Lisinopril 5 Mg Tab PO QDAY ABIMAEL Lorazepam 2 mg 12/02/20 12:54 Lorazepam 2 Mg Tab PO Q1HR PRN CIWA-Ar 8-15 Lorazepam 4 mg 12/02/20 12:54 Lorazepam 2 Mg Tab PO Q1HR PRN CIWA-Ar 16-25 Lorazepam 4 mg 12/02/20 12:54 Lorazepam 2 Mg/Ml Vial IV Q15MIN PRN CIWA-Ar >25 Metoprolol Tartrate 25 mg 12/01/20 15:00 12/03/20 03:00 Metoprolol Tartrate 25 Mg Tab PO 25 mg Q6H ABIMAEL Administration Morphine Sulfate 2 mg 12/01/20 13:30 12/02/20 07:43 Morphine 2 Mg/1 Ml Inj IV 2 mg Q4H PRN Administration Pain, Moderate (4-6) Ondansetron HCl 4 mg 12/01/20 14:00 Ondansetron 4 Mg/2 Ml Inj IV Q8H PRN Nausea And Vomiting Oxycodone/Acetaminophen 1 tab 12/01/20 14:00 Oxycodone /Acetaminophen 5-325mg Tab PO Q6H PRN Pain, Moderate (4-6) Sodium Chloride 10 ml 12/01/20 22:00 12/02/20 23:10 Sodium Chloride 0.9% 10 Ml Flush Syringe IV 10 ml BID ABIMAEL Administration Sodium Chloride 10 ml 12/01/20 13:16 Sodium Chloride 0.9% 10 Ml Flush Syringe IV PRN PRN LINE FLUSH
[2020-12-03] MEDS: ASPIRIN EC 325 MG TAB PO SCH (10:53)
[2020-12-03] MEDS: LISINOPRIL 5 MG TAB PO SCH (10:54)
[2020-12-03] MEDS: FAMOTIDINE 20 MG TAB PO SCH ×2 (10:54→22:03)
[2020-12-03] MEDS: CLOPIDOGREL 75 MG TAB PO SCH (10:55)
--- NOTE | 2020-12-03 13:58 | Progress Note ---
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 COVID-negative, ?bacterial infection v/s RI related. #STEMI: s/p PCI #Transaminitis: ? Congestive hepatopathy Recs: -continue ceftriaxone, vancomycin for now -Recheck WBC, procalcitonin in a.m. Zac Talavera MD, FACP [facility] ([facility] O: [phone] F: [phone] Subjective Date of service: 12/03/20 Interval history: Low-grade fever today. Still having some left shoulder pain. But overall feeling better. Denies any cough or shortness of breath. Denies abdominal pain. Denies nausea, vomiting. Objective - Exam Narrative Exam: Physical Exam: Constitutional: Alert, cooperative. No acute distress Head, Ears, Nose: Normocephalic, atraumatic. External ears, nose normal Eyes: Conjunctivae/corneas clear. No icterus. No ptosis. Neck: Supple, no meningeal signs Cardiovascular: S1, S2 normal. Respiratory: Good air entry, clear to auscultation bilaterally GI: Soft, non-tender; bowel sounds normal. No peritoneal signs Musculoskeletal: No pedal edema, no cyanosis. Skin: No rash or abscess Hem/Lymphatic: No palpable cervical or supraclavicular nodes. No lymphangitis Psych: Mood ok. Affect normal Neurological: Awake, alert, oriented. No gross abnormality - Constitutional Vitals: Vital Signs Temp Pulse Resp BP Pulse Ox 100.0 F H 93 H 18 126/72 97 12/03/20 12:02 12/03/20 12:02 12/03/20 12:02 12/03/20 12:02 12/03/20 12:02 Temperature -Last 24 Hours Temperature 100.0 F Temperature 97.8 F Temperature 100.3 F Temperature 99.5 F Temperature 99.1 F Temperature 101.9 F - Labs CBC & Chem 7: 12/03/20 05:40 12/01/20 11:10 Labs: Abnormal lab results 05/01/1712/02/20 12/02/20 Range/Units 16:01 16:01 22:29 AST 93 H (5-40) units/L Total Creatine Kinase 451 H 343 H (55-170) units/L CK-MB (CK-2) 16.8 H 10.0 H (0.0-4.0) ng/mL Troponin T 2.290 H* 2.190 H* (0.00-0.029) ng/mL Total Protein 6.0 L D (6.3-8.2) g/dL Albumin 3.0 L (3.9-5) g/dL
[2020-12-03] MEDS: cefTRIAXone/NS 2 GM/100 ML 2 GM/100 ML BAG IV SCH (15:23)
[2020-12-04] MEDS: VANCOMYCIN/NS 1 GM/250 ML 1 GM/250 ML BAG IV SCH ×3 (02:00→14:12)
[2020-12-04] MEDS: HYDROcodone/ACETAMINOPHEN 5-325 MG TAB PO PRN (02:03)
[2020-12-04 05:52] LABS: Basophils % (Auto) 0.4 % (0.0-1.8); Eosinophils # (Auto) 0.1 K/mm3 (0.0-0.4); Hemoglobin 13.6 gm/dl (11.8-15.2); Lymphocytes # (Auto) 1.3 K/mm3 (1.2-5.4); Lymphocytes % (Auto) 16.4 % (13.4-35.0); Mean Corpuscular HGB Conc 33 % (32-34); Mean Corpuscular Volume 96 fl (84-94); Monocytes % (Auto) 12.4 % (0.0-7.3); Platelet Count 270 K/mm3 (140-440); Red Blood Count 4.29 M/mm3 (3.65-5.03); Red Cell Distribution Width 12.9 % (13.2-15.2)
[2020-12-04 06:16] LABS: Blood Urea Nitrogen 13 mg/dL (9-20); Calcium 8.5 mg/dL (8.4-10.2); Hemolysis Index 5
[2020-12-04 06:22] LABS: BUN/Creatinine Ratio 19
[2020-12-04] MEDS: METOPROLOL TARTRATE 25 MG TAB PO SCH ×2 (08:04→12:51)
[2020-12-04] MEDS: FAMOTIDINE 20 MG TAB PO SCH (09:52)
[2020-12-04] MEDS: ASPIRIN EC 325 MG TAB PO SCH (09:52)
[2020-12-04] MEDS: CLOPIDOGREL 75 MG TAB PO SCH (09:53)
[2020-12-04] MEDS: cefTRIAXone/NS 2 GM/100 ML 2 GM/100 ML BAG IV SCH (09:57)
--- NOTE | 2020-12-04 10:40 | Discharge Summary ---
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 Pain has been intermittent in nature 8 on a scale of 1-10. Patient also has a low-grade fever associated with diaphoresis. Because of intermittent chest pain patient came to the emergency room. EKG was consistent with STEMI and evaluation. Called STEMI was called. Her ST elevation in the inferolateral leads. Patient was also found to have fever and tachycardia. Patient was given IV Rocephin in the emergency room. Patient was taken to the Director Of Public Safety. Hospital course 49-year-old male with tobacco and EtOH dependence admitted for STEMI s/p thrombectomy, primary angioplasty and stent deployment x1 and COVID-19 PUI STEMI s/p PCI with thrombectomy and POLO deployment Sepsis/fever Leukocytosis Hyponatremia Hypochloremia Hyperglycemia EtOH and tobacco abuse -[facility], cardiology, infectious disease consulted, appreciate recommendations -12/01 COVID-19 PCR negative -12/01 echocardiogram shows the ventricular moderate dilated, left ventricle systolic function is mildly decreased, borderline left ventricular hypertrophy, LVEF 35 to 40%, mild to moderate MR, trace to mild AR, trace to mild TR, RVSP normal at 22 mmHg -12/01 cardiac cath revealed 2 vessel disease with 100% occlusion of the mid circumflex as the infarct-related lesion, severe cardiomyopathy with low ventricular ejection fraction 20%, successful primary angioplasty and stenting of the circumflex including a successful thumb back to me using a export catheter, nonocclusive disease of the proximal LAD will be considered for medical management versus second vessel staged intervention if clinically indicated -[facility] protocol -S/p PCI with POLO deployment x1 and thrombectomy -S/p Aggrastat drip -Statin, Plavix, Imdur, lisinopril, metoprolol, aspirin -ABX therapy with vancomycin and ceftriaxone -Medical management of LAD stenosis -[facility] protocol -Tobacco and EtOH cessation education -Trend troponin, CK/CK-MB, BMP,CBC DVT/GI prophylaxis: PPI, SCDs to bilateral legs while in bed Disposition: ICU, can transfer to floor. This is a 49-year-old male with tobacco and EtOH dependence who presented to the emergency department on 12/01 with complaints of substernal chest pain with radiation to both arms associated with tingling for 3 days prior to presentation which has been intermittent in nature and rated at a 8/10 with low-grade fevers and diaphoresis. In the emergency department ECG was consistent with a STEMI and he was found to be febrile with tachycardia given IV Rocephin. Patient was taken to the cardiac Director Of Public Safety emergently where catheterization revealed two- vessel disease with 100% occlusion of the mid circumflex as the infarct-related lesion and nonocclusive disease of proximal LAD. He received primary angioplasty and a stent to the circumflex artery with successful thrombectomy. Patient was admitted to the hospital service with consults to cardiology, CCM and infectious disease as a COVID-19 PUI, STEMI s/p angioplasty, stent and thrombectomy. 12/02: s/p PCI with thrombectomy and deployment of POLO. Patient complained of chest pain and ECG showed left ventricular hypertrophy. Patient has been cleared to be transferred to the floor by cardiology. COVID-19 PCR negative. Initiated CIWA protocol as patient has a history of EtOH use (more than 12 pack of beer every weekend, 5 to 6 cans of beer daily 12/03/2020; status post PCI, with stent placement. Cardiology is following the patient and cleared him for discharge with the plan to follow as an outpatient. Patient has still has fever and is followed with ID, blood cultures are negative, urine cultures negative. ID recommended to continue with ceftriaxone and vancomycin. Disposition we will continue inpatient care keep patient is fever free for 24 h ours and will follow ID recommendations. 12/04/2020; patient was cleared by cardiology for discharge yesterday with appropriate CAD medications. Patient was doing well this morning. Patient did not have any fever overnight. WBC trended down to normal. I discussed with ID and patient does not need any antibiotics at discharge. Patient will follow with cardiology for further treatment of his CAD as an outpatient. Patient was hemodynamically stable at the time of discharge Disposition: DC-01 TO HOME OR SELFCARE Final Discharge Diagnosis (Prints w/discharge instructions): Acute [place]. Status post stent. Alcohol abuse. SIRS, noninfectious Time spent for discharge: 35 minutes - Discharge Diagnoses (1) STEMI (ST elevation myocardial infarction) Status: Acute (2) Hyperlipidemia Status: Chronic Qualifiers: Hyperlipidemia type: mixed hyperlipidemia Qualified Code(s): E78.2 - Mixed hyperlipidemia (3) Acute coronary syndrome Status: Acute Core Measure Documentation - Palliative Care Palliative Care/ Comfort Measures: Not Applicable - Core Measures Any of the following diagnoses?: acute [place] - Acute [place] Discharge Requirements Aspirin at discharge: Yes TONI/ARB for LVSD if EF <40%: Yes Beta billie at discharge: Yes Statin for LDL = or >100 mg/dl on DC: Yes Exam - Physical Exam Narrative exam: Not in cardiopulmonary distress. The patient appeared well nourished and normally developed. Vital signs as documented. Head exam is unremarkable. No scleral icterus . Neck is without jugular venous distension, thyromegaly, or carotid bruits. Lungs are clear to auscultation. Cardiac exam reveals regular rate and Rhythm. Abdominal exam reveals normal bowel sounds, nontender, no organomegaly. Extremities are nonedematous and both femoral and pedal pulses are normal. 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 No focal weakness. - Constitutional Vitals: Temp Pulse Resp BP Pulse Ox 98.7 F 81 18 105/73 97 12/04/20 08:02 12/04/20 09:52 12/04/20 08:02 12/04/20 09:52 12/04/20 08:02 Plan Activity: no restrictions Weight Bearing Status: Full Weight Bearing Diet: low salt Follow up with: SEAN SINGLETON MD [Primary Care Provider] - 3-5 Days ERI DODD MD [Staff Physician] - 14 Days Prescriptions: AtorvaSTATin [Lipitor] 40 mg PO QHS #30 tablet Aspirin EC [Ecotrin] 325 mg PO QDAY #30 tablet ISOSORBIDE MONOnitrate [Imdur ER] 30 mg PO QDAY #30 tablet Metoprolol [Lopressor TAB] 25 mg PO Q6H #30 tablet oxyCODONE /ACETAMINOPHEN [Percocet 5/325 mg] 1 tab PO Q6H PRN #10 tablet PRN Reason: Pain, Moderate (4-6) Clopidogrel [Plavix] 75 mg PO QDAY #30 tablet lisinopriL [Zestril TAB] 2.5 mg PO QDAY #30 tablet
--- NOTE | 2020-12-04 11:03 | Event Note ---
Date: 12/04/20 Afebrile overnight. WBC normal. D/W SENTHIL Oconnor for discharge from ID standpoint, no abx needed.
--- NOTE | 2020-12-04 12:07 | Progress Note ---
Assessment and Plan - Patient Problems (1) Acute coronary syndrome Current Visit: No Status: Acute Plan to address problem: Patient presented with acute coronary syndrome, acute myocardial infarction of 3 days duration with postinfarction angina. We performed successful angioplasty and stenting of an occluded circumflex. He has borderline disease of the proximal LAD recommended for medical therapy and aggressive close outpatient follow-up. Subjective Date of service: 12/04/20 Interval history: Patient looks and feels well, asymptomatic cardiac status, wants to go home. Objective Vital Signs Temp Pulse Resp BP Pulse Ox 12/04/20 09:52 81 105/73 12/04/20 08:02 98.7 F 81 18 105/73 97 12/04/20 04:02 98.0 F 89 18 117/78 96 12/04/20 02:03 20 12/04/20 01:09 98.0 F 93 H 18 121/70 97 12/03/20 23:00 92 H 122/70 12/03/20 19:38 99.8 F H 92 H 18 105/73 94 - Physical Examination General: No Apparent Distress HEENT: Positive: PERRL Neck: Positive: neck supple Cardiac: Positive: Reg Rate and Rhythm Lungs: Positive: clear to auscultation Neuro: Positive: Grossly Intact Abdomen: Positive: Soft Skin: Positive: Clear Extremities: Absent: edema - Labs and Meds CBC 12/04/20 Range/Units 05:04 WBC 7.8 (4.5-11.0) K/mm3 RBC 4.29 (3.65-5.03) M/mm3 Hgb 13.6 (11.8-15.2) gm/dl Hct 41.0 (35.5-45.6) % Plt Count 270 (140-440) K/mm3 Lymph # (Auto) 1.3 (1.2-5.4) K/mm3 [place] # (Auto) 1.0 H (0.0-0.8) K/mm3 Eos # (Auto) 0.1 (0.0-0.4) K/mm3 Baso # (Auto) 0.0 (0.0-0.1) K/mm3 Comprehensive Metabolic Panel 12/04/20 Range/Units 05:04 Sodium 138 (137-145) mmol/L Potassium 4.0 (3.6-5.0) mmol/L Chloride 103.6 (98-107) mmol/L Carbon Dioxide 21 L (22-30) mmol/L BUN 13 (9-20) mg/dL Creatinine 0.7 L (0.8-1.3) mg/dL Glucose 131 H (75-100) mg/dL Calcium 8.5 (8.4-10.2) mg/dL - Imaging and Cardiology EKG: report reviewed (EKG consistent with inferior lateral infarction)
[2020-12-04] MEDS: LISINOPRIL 5 MG TAB PO SCH (12:51)
[2020-12-04 12:52] VITALS: BP 108/66
== END 2020-12-04 14:12 | disposition home or self-care (01) | DRG 853 ==
LOC: CATH 10:23 → ED 10:23 → CATH 11:52 → EDSTATUS 12:12 → CATH 12:52 → CC1 13:16 → 4A 12-02 18:31
PROVIDERS: ADMIT Internal Medicine; ATTEND Internal Medicine
PROC: 027034Z Dilation of Coronary Artery, One Artery with Drug-eluting Intraluminal Device, Percutaneous Approach (ICD-10-PCS; principal; 2020-12-01)
PROC: 02C03ZZ Extirpation of Matter from Coronary Artery, One Artery, Percutaneous Approach (ICD-10-PCS; 2020-12-01)
PROC: 4A023N7 Measurement of Cardiac Sampling and Pressure, Left Heart, Percutaneous Approach (ICD-10-PCS; 2020-12-01)
PROC: B2111ZZ Fluoroscopy of Multiple Coronary Arteries using Low Osmolar Contrast (ICD-10-PCS; 2020-12-01)
PROC: B2151ZZ Fluoroscopy of Left Heart using Low Osmolar Contrast (ICD-10-PCS; 2020-12-01)
DX: A41.9 Sepsis, unspecified organism (principal); I21.19 ST elevation (STEMI) myocardial infarction involving other coronary artery of inferior wall; E87.1 Hypo-osmolality and hyponatremia; I24.9 Acute ischemic heart disease, unspecified; I42.9 Cardiomyopathy, unspecified; Z20.822 Contact with and (suspected) exposure to COVID-19; F17.200 Nicotine dependence, unspecified, uncomplicated; F10.20 Alcohol dependence, uncomplicated; E87.8 Other disorders of electrolyte and fluid balance, not elsewhere classified; R73.9 Hyperglycemia, unspecified; E78.2 Mixed hyperlipidemia; R74.01 Elevation of levels of liver transaminase levels; D75.1 Secondary polycythemia
CPT/HCPCS: 36415; 71045; 80048; 80053; 80061; 80076; 81001; 82140; 82550; 82553; 82728; 82947; 83036; 83615; 83735; 83880; 84100; 84145; 84484; 85014; 85018; 85025; 85049; 85347; 85379; 85610; 85730; 86140; 87040; 87086; 92941; 93005; 93306; 93458; 99406; G0378; A9270-GY; C1725; C1757; C1769; C1874; C1887; C1894; C9606; J0171; J0461; J0696; J1644; J2001; J2250; J2270; J2370; J2405; J3010; J3246; J3370; J7030; J7040; J7050; Q9967; U0003

== ENCOUNTER 2020-12-09 07:01 | Inpatient (IN) | payer OTHER ==
[2020-12-09] MEDS ORDERED: LIDOCAINE PF 100 MG/5 ML (CARDIAC SYRINGE) IV ONE (07:28)
[2020-12-09] MEDS ORDERED: ETOMIDATE 20 MG/10 ML INJ IV ONE ×2 (07:37→07:55)
[2020-12-09] MEDS ORDERED: LIDOCAINE DRIP 2,000 MG/500 ML BAG IV ONE (07:50)
--- NOTE | 2020-12-09 07:53 | Emergency Department Report ---
HPI - General Time Seen by Provider: 12/09/20 07:27 - HPI HPI: Room 21 The patient is a 49-year-old male present with a chief complaint of chest pain. Patient states he had some chest pain and shortness of breath last night that was intermittent. The patient states he went to sleep when he awakened this morning he again had substernal chest pain associated with shortness of breath and nausea without vomiting. The patient came to the ED and had an EKG performed which showed stable V. tach. The patient was brought back immediately and preparations were made for synchronized cardioversion however the patient converted to sinus rhythm after administration of lidocaine ED Past Medical Hx - Past Medical History Hx Heart Attack/AMI: Yes Hx Asthma: No Hx COPD: No - Surgical History Additional Surgical History: Right upper extremity - Family History Family history: no significant - Social History Smoking Status: Former Smoker (None x20 years) Substance Use Type: None - Medications Home Medications: Home Medications Medication Instructions Recorded Confirmed Last Taken Type Aspirin EC [Ecotrin] 325 mg PO QDAY #30 tablet 12/04/20 Unknown Rx AtorvaSTATin [Lipitor] 40 mg PO QHS #30 tablet 12/04/20 Unknown Rx Clopidogrel [Plavix] 75 mg PO QDAY #30 tablet 12/04/20 Unknown Rx ISOSORBIDE MONOnitrate [Imdur ER] 30 mg PO QDAY #30 tablet 12/04/20 Unknown Rx Metoprolol [Lopressor TAB] 25 mg PO Q6H #30 tablet 12/04/20 Unknown Rx lisinopriL [Zestril TAB] 2.5 mg PO QDAY #30 tablet 12/04/20 Unknown Rx oxyCODONE /ACETAMINOPHEN [Percocet 1 tab PO Q6H PRN #10 tablet 12/04/20 Unknown Rx 5/325 mg] ED Review of Systems ROS: Stated complaint: CHEST PAINS NUMBNESS Other details as noted in HPI Constitutional: diaphoresis Eyes: denies: eye pain ENT: denies: throat pain Respiratory: shortness of breath Cardiovascular: chest pain Endocrine: no symptoms reported Gastrointestinal: nausea. denies: vomiting Genitourinary: denies: dysuria Musculoskeletal: denies: back pain Neurological: denies: headache Physical Exam - Physical Exam Physical Exam: GENERAL: The patient is well-developed well-nourished male lying on stretcher not appearing to be in acute distress. [] HEENT: Normocephalic. Atraumatic. Extraocular motions are intact. Patient has moist mucous membranes. NECK: Supple. Trachea midline CHEST/LUNGS: Clear to auscultation. There is no respiratory distress noted. HEART/CARDIOVASCULAR: Regular. There is tachycardia. There is no gallop rub or murmur. ABDOMEN: Abdomen is soft, nontender. Patient has normal bowel sounds. There is no abdominal distention. SKIN: There is no rash. There is no edema. There is no diaphoresis. NEURO: The patient is awake, alert, and oriented. The patient is cooperative. The patient has no focal neurologic deficits. The patient has normal speech MUSCULOSKELETAL: There is no evidence of acute injury. ED Course - Consultations Consultation #1: 12/09/20 07:32 EKG sent to on-call cardiology Dr. Larson-Case briefly discussed with Dr. Larson- medical records reveal the patient had a cardiac catheterization performed by Dr. Damon last week. Asked to contact Dr. Damon Consultation #2: 12/09/20 07:[address] Damon. Dr. Damon paged 12/09/20 08:24 Case discussed with Barbra- Will Consult ED Medical Decision Making - Lab Data Result diagrams: 12/09/20 08:05 12/09/20 08:05 Laboratory Tests 12/09/20 12/09/20 12/09/20 08:05 08:05 08:05 WBC 8.6 RBC 4.59 Hgb 14.3 Hct 43.3 MCV 94 MCH 31 MCHC 33 RDW 12.9 L Plt Count 564 H Lymph % (Auto) 33.2 [place] % (Auto) 8.2 H Eos % (Auto) 2.2 Baso % (Auto) 0.7 Lymph # (Auto) 2.9 [place] # (Auto) 0.7 Eos # (Auto) 0.2 Baso # (Auto) 0.1 Seg Neutrophils % 55.7 Seg Neutrophils # 4.8 PT 13.8 INR 1.08 Sodium 140 Potassium 4.4 Chloride 101.6 Carbon Dioxide 27 Anion Gap 16 BUN 17 Creatinine 0.9 Estimated GFR > 60 BUN/Creatinine Ratio 19 Glucose 148 H Calcium 9.1 Magnesium Total Creatine Kinase 94 CK-MB (CK-2) 2.1 CK-MB (CK-2) Rel Index 2.2 12/09/20 08:05 WBC RBC Hgb Hct MCV MCH MCHC RDW Plt Count Lymph % (Auto) [place] % (Auto) Eos % (Auto) Baso % (Auto) Lymph # (Auto) [place] # (Auto) Eos # (Auto) Baso # (Auto) Seg Neutrophils % Seg Neutrophils # PT INR Sodium Potassium Chloride Carbon Dioxide Anion Gap BUN Creatinine Estimated GFR BUN/Creatinine Ratio Glucose Calcium Magnesium 2.20 Total Creatine Kinase CK-MB (CK-2) CK-MB (CK-2) Rel Index - EKG Data -: EKG Interpreted by Me Rate: tachycardia - EKG Data When compared to previous EKG there are: changes noted Interpretation: other (Stable V. tach) - Radiology Data Radiology results: report reviewed (Chest x-ray), image reviewed (Chest x-ray) interpreted by me: Chest x-ray-no focal infiltrates, no pneumothorax. No foreign body seen [facility] [address] [place] [address] X Ray Report Signed Patient: ELZA HADLEY MR#: [id number] 47 : 1970 Acct:[id number] Age/Sex: 49 / M ADM Date: 12/09/20 Loc: ED Attending Dr: Ordering Physician: ZACH HERNANDEZ MD Date of Service: 12/09/20 Procedure(s): XR chest 1V ap Accession Number(s): [id number] cc: ZACH HERNANDEZ MD Fluoro Time In Minutes: XR chest 1V ap INDICATION / CLINICAL INFORMATION: chest pain COMPARISON: December 02, 2020 FINDINGS: SUPPORT DEVICES: None. HEART / MEDIASTINUM: No significant abnormality. LUNGS / PLEURA: Lungs are clear. Costophrenic sulci are sharp. No pneumothorax. ADDITIONAL FINDINGS: No significant additional findings. IMPRESSION: 1. No acute findings. Signer Name: Veto Rajput MD Signed: 12/09/2020 9:33 AM Workstation Name: [id number] Transcribed By: CS Dictated By: Veto Rajput MD Electronically Authenticated By: Veto Rajput MD Signed Date/Time: 12/09/20932 DD/ 2 TD/TT: Print Cancel - Differential Diagnosis V. tach, ACS, pericarditis, GERD Critical care attestation.: If time is entered above; I have spent that time in minutes in the direct care of this critically ill patient, excluding procedure time. ED Disposition Clinical Impression: Ventricular tachycardia, Chest pain Disposition: OP ADMIT IP TO THIS HOSP Is pt being admited?: Yes Does the pt Need Aspirin: Yes Condition: Fair Instructions: Nonspecific Chest Pain, Adult Time of Disposition: 09:34 (Hospitalist paged) Heart Score - HEART Score History: Highly suspicious EKG: Significant ST-depression (V. tach) Age: 45-65 Risk factors: 1-2 risk factors Troponin: 1-3x normal limit (Pending) HEART Score: 7 - EKG Read Time Time EKG Completed: 07:23 EKG Read Time: 07:40
[2020-12-09 08:44] LABS: Basophils # (Auto) 0.1 K/mm3 (0.0-0.1); Basophils % (Auto) 0.7 % (0.0-1.8); Eosinophils # (Auto) 0.2 K/mm3 (0.0-0.4); Eosinophils % (Auto) 2.2 % (0.0-4.3); Hematocrit 43.3 % (35.5-45.6); Hemoglobin 14.3 gm/dl (11.8-15.2); Lymphocytes # (Auto) 2.9 K/mm3 (1.2-5.4); Lymphocytes % (Auto) 33.2 % (13.4-35.0); Mean Corpuscular HGB Conc 33 % (32-34); Mean Corpuscular Volume 94 fl (84-94); Monocytes # (Auto) 0.7 K/mm3 (0.0-0.8); Monocytes % (Auto) 8.2 % (0.0-7.3); Platelet Count 564 K/mm3 (140-440); Red Blood Count 4.59 M/mm3 (3.65-5.03); Red Cell Distribution Width 12.9 % (13.2-15.2)
[2020-12-09 08:52] LABS: INR 1.08 (0.87-1.13)
[2020-12-09 09:03] LABS: Creatine Kinase MB 2.1 ng/mL (0.0-4.0)
[2020-12-09 09:06] LABS: BUN/Creatinine Ratio 19; Blood Urea Nitrogen 17 mg/dL (9-20); Calcium 9.1 mg/dL (8.4-10.2); Hemolysis Index 5
--- NOTE | 2020-12-09 09:38 | XRay Report ---
XR chest 1V ap INDICATION / CLINICAL INFORMATION: chest pain COMPARISON: December 02, 2020 FINDINGS: SUPPORT DEVICES: None. HEART / MEDIASTINUM: No significant abnormality. LUNGS / PLEURA: Lungs are clear. Costophrenic sulci are sharp. No pneumothorax. ADDITIONAL FINDINGS: No significant additional findings. IMPRESSION: 1. No acute findings. Signer Name: Veto Rajput MD Signed: 12/09/2020 9:33 AM Workstation Name: [id number]
[2020-12-09] MEDS ORDERED: oxyCODONE /ACETAMINOPHEN 5-325MG TAB PO PRN (09:58)
--- NOTE | 2020-12-09 09:58 | History and Physical Report ---
History of Present Illness Date of examination: 12/09/20 Date of admission: 12/09/20 Chief complaint: Chest pain History of present illness: Patient is a 49-year-old male with past medical history of a recent STEMI status post cardiac catheterization with occluded circumflex with POLO PCI deployment x1 and thrombectomy and borderline stenosis of the LAD which medical therapy was recommended and also found to have underlying moderate to severe ischemic cardiomyopathy. The patient was discharged on antiplatelets Plavix and has been fully compliant came to the ER today following a complaint of chest pain or shortness of breath the night before that awakened him up from sleep this morning with associated nausea but no vomiting. On arrival to the ER was noted to have V. tach which was stable. The patient converted to sinus rhythm after administration of lidocaine. Is currently chest pain-free but mildly hypotensive with noted positive troponin and the recommendation from ER doctor and mounter clarinets for admission for further work-up. He denies any fever reports compliance with his medication. His hospital course prior was complicated with sepsis and fever for which he was treated with antibiotics. He also had a history of EtOH and tobacco use which he says he has not had any drink since the episode. Recommendations: Patient should be admitted to the ICU stepdown, will be treated with heparin, beta-blockers, statin, and aspirin and Plavix. We will plan cardiac catheterization to assess the patency of his circumflex artery stent, and if patent, consider ischemia guided revascularization of the proximal LAD. In addition to full revascularization, it is possible that his ventricular tachycardia is secondary to posterior wall scarring, in this scenario patient will benefit from LifeVest monitoring on discharge as a bridge to possible eventual ICD. Past History Past Medical History: CAD, hypertension, hyperlipidemia Past Surgical History: Other (PCI last, right antecubital surgery many years ago) Social history: smoking (Quit 3 weeks ago), alcohol abuse (Quit 3 weeks ago), full code. denies: prescription drug abuse, IV drug use Family history: no significant family history Medications and Allergies Allergies Allergy/AdvReac Type Severity Reaction Status Date / Time No Known Allergies Allergy Verified 12/01/20 10:40 Home Medications Medication Instructions Recorded Confirmed Last Taken Type Aspirin EC [Ecotrin] 325 mg PO QDAY #30 tablet 12/04/20 12/09/20 Unknown Rx AtorvaSTATin [Lipitor] 40 mg PO QHS #30 tablet 12/04/20 12/09/20 Unknown Rx Clopidogrel [Plavix] 75 mg PO QDAY #30 tablet 12/04/20 12/09/20 Unknown Rx ISOSORBIDE MONOnitrate [Imdur ER] 30 mg PO QDAY #30 tablet 12/04/20 12/09/20 Unknown Rx Metoprolol [Lopressor TAB] 25 mg PO Q6H #30 tablet 12/04/20 12/09/20 Unknown Rx lisinopriL [Zestril TAB] 2.5 mg PO QDAY #30 tablet 12/04/20 12/09/20 Unknown Rx oxyCODONE /ACETAMINOPHEN [Percocet 1 tab PO Q6H PRN #10 tablet 12/04/20 12/09/20 Unknown Rx 5/325 mg] Active Meds: Active Medications Aspirin (Aspirin 81 Mg Tab Chew) 81 mg PO QDAY ABIMAEL Clopidogrel Bisulfate (Clopidogrel 75 Mg Tab) 75 mg PO QDAY ABIMAEL Lidocaine HCl/Dextrose (Xylocaine/D5w 2gm/500ml Drip) 2,000 mg in 500 mls @ 30 mls/hr IV DIRECT ONE; Protocol Stop: 12/10/20 00:29 Review of Systems All systems: negative Cardiovascular: chest pain, orthopnea, palpitations, rapid/irregular heart beat, shortness of breath, no edema, no syncope, no lightheadedness, no dyspnea on exertion, no paroxysmal nocturnal dyspnea Respiratory: no cough, no excessive sputum, no shortness of breath Gastrointestinal: nausea, no vomiting, no constipation Genitourinary Male: no flank pain, no discharge Rectal: no pain Musculoskeletal: no shooting arm pain, no arm numbness/tingling, no leg n umbness/tingling, no muscle weakness, no muscle cramps, no atrophy Integumentary: no rash, no jaundice, no darkening of skin, no unusual bruising, no hirsutism Neurological: no weakness, no seizures, no tremors, no change in speech, no change in mentation, no sensory deficit, no double vision, no loss of vision Psychiatric: no insomnia, no change in libido, no suicidal ideation Exam - Physical Exam Narrative exam: VITAL SIGNS: Reviewed. GENERAL: The patient appears normally developed, Vital signs as documented. HEAD: No signs of head trauma. EYES: Pupils are equal. Extraocular motions intact. EARS: Hearing grossly intact. MOUTH: Oropharynx is normal. NECK: No adenopathy, no JVD. CHEST: Chest with clear breath sounds bilaterally. No wheezes, rales, or rhonchi. CARDIAC: Regular rate and rhythm. S1 and S2, without murmurs, gallops, or rubs. VASCULAR: No Edema. Peripheral pulses normal and equal in all extremities. ABDOMEN: Soft, non tender and non distended. No rebound or guarding, and no masses palpated. Bowel Sounds normal. MUSCULOSKELETAL: Good range of motion of all major joints. Extremities without clubbing, cyanosis or edema. NEUROLOGIC EXAM: Alert and oriented x 3 No focal sensory or strength defic its. Speech normal. Follows commands. PSYCHIATRIC: Mood normal. SKIN: detail exam as documented in skin assessment - Constitutional Vitals: Temp Pulse Resp BP Pulse Ox 175 H 16 94/65 98 12/09/20 07:40 12/09/20 07:40 12/09/20 07:40 12/09/20 07:40 HEART Score - HEART Score EKG: Significant ST-depression (V. tach) Age: 45-65 Risk factors: 1-2 risk factors Troponin: Troponin T 0.691 ng/mL (0.00-0.029) H* 12/09/20 08:05 Troponin: 1-3x normal limit (Pending) Results - Labs CBC & Chem 7: 12/09/20 13:10 12/09/20 08:05 Labs: Laboratory Last Values WBC 8.6 K/mm3 (4.5-11.0) 12/09/20 08:05 RBC 4.59 M/mm3 (3.65-5.03) 12/09/20 08:05 Hgb 14.3 gm/dl (11.8-15.2) 12/09/20 08:05 Hct 43.3 % (35.5-45.6) 12/09/20 08:05 MCV 94 fl (84-94) 12/09/20 08:05 MCH 31 pg (28-32) 12/09/20 08:05 MCHC 33 % (32-34) 12/09/20 08:05 RDW 12.9 % (13.2-15.2) L 12/09/20 08:05 Plt Count 564 K/mm3 (140-440) H 12/09/20 08:05 Lymph % (Auto) 33.2 % (13.4-35.0) 12/09/20 08:05 [place] % (Auto) 8.2 % (0.0-7.3) H 12/09/20 08:05 Eos % (Auto) 2.2 % (0.0-4.3) 12/09/20 08:05 Baso % (Auto) 0.7 % (0.0-1.8) 12/09/20 08:05 Lymph # (Auto) 2.9 K/mm3 (1.2-5.4) 12/09/20 08:05 [place] # (Auto) 0.7 K/mm3 (0.0-0.8) 12/09/20 08:05 Eos # (Auto) 0.2 K/mm3 (0.0-0.4) 12/09/20 08:05 Baso # (Auto) 0.1 K/mm3 (0.0-0.1) 12/09/20 08:05 Seg Neutrophils % 55.7 % (40.0-70.0) 12/09/20 08:05 Seg Neutrophils # 4.8 K/mm3 (1.8-7.7) 12/09/20 08:05 PT 13.8 Sec. (12.2-14.9) 12/09/20 08:05 INR 1.08 (0.87-1.13) 12/09/20 08:05 Sodium 140 mmol/L (137-145) 12/09/20 08:05 Potassium 4.4 mmol/L (3.6-5.0) 12/09/20 08:05 Chloride 101.6 mmol/L (98-107) 12/09/20 08:05 Carbon Dioxide 27 mmol/L (22-30) 12/09/20 08:05 Anion Gap 16 mmol/L 12/09/20 08:05 BUN 17 mg/dL (9-20) 12/09/20 08:05 Creatinine 0.9 mg/dL (0.8-1.3) 12/09/20 08:05 Estimated GFR > 60 ml/min 12/09/20 08:05 BUN/Creatinine Ratio 19 % 12/09/20 08:05 Glucose 148 mg/dL (75-100) H 12/09/20 08:05 Calcium 9.1 mg/dL (8.4-10.2) 12/09/20 08:05 Magnesium 2.20 mg/dL (1.7-2.3) 12/09/20 08:05 Total Creatine Kinase 94 units/L (55-170) 12/09/20 08:05 CK-MB (CK-2) 2.1 ng/mL (0.0-4.0) 12/09/20 08:05 CK-MB (CK-2) Rel Index 2.2 (0-4) 12/09/20 08:05 Troponin T 0.691 ng/mL (0.00-0.029) H* 12/09/20 08:05 Assessment and Plan Assessment and plan: Patient is a 49-year-old male with past medical history of a recent STEMI status post cardiac catheterization with occluded circumflex with POLO PCI deployment x1 and thrombectomy and borderline stenosis of the LAD which medical therapy was recommended and also found to have underlying moderate to severe ischemic cardiomyopathy. The patient was discharged on antiplatelets Plavix and has been fully compliant came to the ER today following a complaint of chest pain or shortness of breath the night before that awakened him up from sleep this morning with associated nausea but no vomiting. On arrival to the ER was noted to have V. tach which was stable. The patient converted to sinus rhythm after administration of lidocaine. Is currently chest pain-free but mildly hypotensive with noted positive troponin and the recommendation from ER doctor and mounter clarinets for admission for further work-up. He denies any fever reports compliance with his medication. His hospital course prior was complicated with sepsis and fever for which he was treated with antibiotics. He also had a history of EtOH and tobacco use which he says he has not had any drink since the episode. VTACH CAD HTN- Now hypotensive Chest Pain Positive Troponin-improved compared to recent numbers Plan Admit to IMCU Discussed with mounter clarinets Start on heparin drip, beta-blockers, statin, and aspirin and Plavix. Plan cardiac catheterization in am to assess recent stent Pain control Dvt/gi PROPHY HOLD ACEI due to hypotension Plan also discussed with the patient in detail The high probability of a clinically significant, sudden or life threatening deterioration of the [cardiac] system(s) required my full and direct attention, intervention and personal management. The aggregate critical care time was [35] minutes. This time is in addition to time spent performing reported procedures but includes the following: [x] Data Review and interpretation [x] Patient assessment and monitoring of vital signs [x] Documentation [x] Medication orders and management Advance Directives: Yes Plan of care discussed with patient/family: Yes
[2020-12-09] MEDS ORDERED: ALBUTEROL 2.5 MG/3 ML NEBU IH PRN (10:00)
[2020-12-09] MEDS ORDERED: ACETAMINOPHEN 325 MG TAB PO PRN (10:00)
[2020-12-09] MEDS ORDERED: CLOPIDOGREL 75 MG TAB PO SCH (10:00)
[2020-12-09] MEDS ORDERED: DEXTROSE 50% IN WATER (25GM) 50 ML SYRINGE IV PRN (10:00)
[2020-12-09] MEDS ORDERED: ASPIRIN EC 325 MG TAB PO SCH (10:00)
[2020-12-09] MEDS ORDERED: ALUM-MAG HYDROXIDE-SIMETHICONE 200-200-20MG/5ML ORAL LIQD 30 ML PO PRN (10:00)
[2020-12-09] MEDS ORDERED: ONDANSETRON 4 MG/2 ML INJ IV PRN (10:00)
[2020-12-09] MEDS ORDERED: LISINOPRIL 5 MG TAB PO SCH (10:00)
[2020-12-09 10:06] LABS: LDL Cholesterol,Direct 4 mg/dL (50-130)
[2020-12-09 10:09] LABS: HDL Cholesterol < 3 mg/dL (40-59)
[2020-12-09] MEDS: ASPIRIN 81 MG TAB CHEW PO SCH (11:21)
[2020-12-09] MEDS: CLOPIDOGREL 75 MG TAB PO SCH (11:22)
[2020-12-09] MEDS: HEPARIN/ 0.45% NACL DRIP 25,000 UNIT/500 ML BAG IV SCH (11:24)
--- NOTE | 2020-12-09 12:08 | Consultation ---
History of Present Illness Consult date: 12/09/20 Consult reason: arrhythmia, chest pain History of present illness: 49-year old male who was hospitalized 1 week ago with acute coronary syndrome. He was taken to the clinical genetics laboratory chief and underwent angioplasty and stenting to the mid Cx using drug eluting stents. Medical therapy was recommended for proximal LAD stenosis. An echo showed a mildly dilated LA with decreased left ventricular systolic function, ejection fraction 35-40%. Patient returns to the emergency department with complaints of chest pain. He reports chest pain while walking. Denies unusual shortness of breath, denies dizziness, and denies palpitations. On presentation an ECG showed a wide complex tachycardia, rate 181. This was treated with intravenous Lidocaine 100 mg. He then reverted to a sinus rhythm. A repeat ECG is sinus rhythm, no acute ST or T wave abnormalities. Cardiology consultation was requested. Past History Past Medical History: CAD, heart failure Medications and Allergies Allergies Allergy/AdvReac Type Severity Reaction Status Date / Time No Known Allergies Allergy Verified 12/01/20 10:40 Home Medications Medication Instructions Recorded Confirmed Last Taken Type Aspirin EC [Ecotrin] 325 mg PO QDAY #30 tablet 12/04/20 12/09/20 Unknown Rx AtorvaSTATin [Lipitor] 40 mg PO QHS #30 tablet 12/04/20 12/09/20 Unknown Rx Clopidogrel [Plavix] 75 mg PO QDAY #30 tablet 12/04/20 12/09/20 Unknown Rx ISOSORBIDE MONOnitrate [Imdur ER] 30 mg PO QDAY #30 tablet 12/04/20 12/09/20 Unknown Rx Metoprolol [Lopressor TAB] 25 mg PO Q6H #30 tablet 12/04/20 12/09/20 Unknown Rx lisinopriL [Zestril TAB] 2.5 mg PO QDAY #30 tablet 12/04/20 12/09/20 Unknown Rx oxyCODONE /ACETAMINOPHEN [Percocet 1 tab PO Q6H PRN #10 tablet 12/04/20 12/09/20 Unknown Rx 5/325 mg] Active Meds: Active Medications Acetaminophen (Acetaminophen 325 Mg Tab) 650 mg PO Q4H PRN PRN Reason: Pain MILD(1-3)/Fever >100.5/GIBS[place] Al Hydrox/Mg Hydrox/Simethicone (Alum-Mag Hydroxide-Simethicone [id number]/5ml Oral Liqd 30 Ml) 30 ml PO Q4H PRN PRN Reason: Indigestion Albuterol (Albuterol 2.5 Mg/3 Ml Nebu) 2.5 mg IH Q4HRT PRN PRN Reason: Shortness Of Breath Aspirin (Aspirin 81 Mg Tab Chew) 81 mg PO QDAY [facility] Last Admin: 12/09/20 11:21 Dose: 81 mg Documented by: Atorvastatin Calcium (Atorvastatin 40 Mg Tab) 40 mg PO QHS [facility] Budesonide (Budesonide 0.5 Mg/2 Ml Nebu) 0.5 mg IH Q12HRT ABIMAEL Clopidogrel Bisulfate (Clopidogrel 75 Mg Tab) 75 mg PO QDAY [facility] Last Admin: 12/09/20 11:22 Dose: 75 mg Documented by: Dextrose (Dextrose 50% In Water (25gm) 50 Ml Syringe) 50 ml IV Q30MIN PRN; Protocol PRN Reason: Hypoglycemia Docusate Sodium (Docusate Sodium 100 Mg Cap) 100 mg PO BID [facility] Lidocaine HCl/Dextrose (Xylocaine/D5w 2gm/500ml Drip) 2,000 mg in 500 mls @ 30 mls/hr IV DIRECT ONE; Protocol Stop: 12/10/20 00:29 Last Admin: 12/09/20 11:23 Dose: 2 mg/min, 30 mls/hr Documented by: Heparin Sodium/Sodium Chloride (Heparin/ 0.45% Nacl-25,000 Unit/500 Ml) 25,000 unit in 500 mls @ 20 mls/hr IV TITRATE [facility]; Protocol Last Admin: 12/09/20 11:24 Dose: 1,000 units/hr, 20 mls/hr Documented by: Metoprolol Tartrate (Metoprolol Tartrate 25 Mg Tab) 25 mg PO Q6HR [facility] Ondansetron HCl (Ondansetron 4 Mg/2 Ml Inj) 4 mg IV Q4H PRN PRN Reason: Nausea And Vomiting Oxycodone/Acetaminophen (Oxycodone /Acetaminophen 5-325mg Tab) 1 tab PO Q6H PRN PRN Reason: Pain, Moderate (4-6) Sodium Chloride (Sodium Chloride 0.9% 10 Ml Flush Syringe) 10 ml IV BID [facility] Last Admin: 12/09/20 11:22 Dose: 10 ml Documented by: Sodium Chloride (Sodium Chloride 0.9% 10 Ml Flush Syringe) 10 ml IV PRN PRN PRN Reason: LINE FLUSH Review of Systems Cardiovascular: chest pain, palpitations Physical Examination Vital Signs Pulse Resp 185 H 21 12/09/20 07:34 12/09/20 07:34 General appearance: no acute distress HEENT: Positive: PERRL Neck: Positive: trachea midline Cardiac: Positive: Reg Rate and Rhythm Lungs: Positive: Decreased Breath Sounds Neuro: Positive: Grossly Intact Extremities: Absent: edema Results 12/09/20 08:05 12/09/20 08:05 Cardiac Enzymes 12/09/20 Range/Units 08:05 CK-MB (CK-2) 2.1 (0.0-4.0) ng/mL Coagulation 12/09/20 Range/Units 08:05 PT 13.8 (12.2-14.9) Sec. INR 1.08 (0.87-1.13) Lipids 12/09/20 Range/Units 08:05 Triglycerides 92 (2-149) mg/dL Cholesterol < 4 L (50-199) mg/dL HDL Cholesterol < 3 L (40-59) mg/dL Cholesterol/HDL Ratio 1.00 % CBC 12/09/20 Range/Units 08:05 WBC 8.6 (4.5-11.0) K/mm3 RBC 4.59 (3.65-5.03) M/mm3 Hgb 14.3 (11.8-15.2) gm/dl Hct 43.3 (35.5-45.6) % Plt Count 564 H (140-440) K/mm3 Lymph # (Auto) 2.9 (1.2-5.4) K/mm3 Cross # (Auto) 0.7 (0.0-0.8) K/mm3 Eos # (Auto) 0.2 (0.0-0.4) K/mm3 Baso # (Auto) 0.1 (0.0-0.1) K/mm3 Comprehensive Metabolic Panel 12/09/20 Range/Units 08:05 Sodium 140 (137-145) mmol/L Potassium 4.4 (3.6-5.0) mmol/L Chloride 101.6 (98-107) mmol/L Carbon Dioxide 27 (22-30) mmol/L BUN 17 (9-20) mg/dL Creatinine 0.9 (0.8-1.3) mg/dL Glucose 148 H (75-100) mg/dL Calcium 9.1 (8.4-10.2) mg/dL Assessment and Plan SVT - reverted to sinus rhythm following IV lidocaine 100 mg. Recent myocardial infarction s/p PCI of the mid circumflex artery occlusion. on dual oral therapy with aspirin and Plavix. Echocardiogram done shows mildly dilated LA with a decreased LV systolic function, ejection fraction 35-40%. Recommendations: Resume guideline directed medical therapy for coronary artery disease and ischemic cardiomyopathy. Will plan for LHC for the patient has a proximal LAD stenosis of borderline severity. Lifevest placement before discharge.
--- NOTE | 2020-12-09 12:11 | Electrocardiograph Report ---
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
--- NOTE | 2020-12-09 12:13 | Electrocardiograph Report ---
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
[2020-12-09] MEDS: METOPROLOL TARTRATE 25 MG TAB PO SCH ×2 (12:21→18:42)
[2020-12-09 14:15] LABS: Basophils % (Auto) 0.6 % (0.0-1.8); Eosinophils # (Auto) 0.1 K/mm3 (0.0-0.4); Eosinophils % (Auto) 0.9 % (0.0-4.3); Hematocrit 41.6 % (35.5-45.6); Hemoglobin 13.7 gm/dl (11.8-15.2); Lymphocytes # (Auto) 1.6 K/mm3 (1.2-5.4); Lymphocytes % (Auto) 25.6 % (13.4-35.0); Mean Corpuscular HGB Conc 33 % (32-34); Mean Corpuscular Volume 94 fl (84-94); Monocytes # (Auto) 0.5 K/mm3 (0.0-0.8); Platelet Count 509 K/mm3 (140-440); Red Blood Count 4.41 M/mm3 (3.65-5.03); Red Cell Distribution Width 12.8 % (13.2-15.2)
[2020-12-09] MEDS: DOCUSATE SODIUM 100 MG CAP PO SCH ×2 (14:24→22:59)
[2020-12-09 14:25] LABS: Creatine Kinase MB 22.3 ng/mL (0.0-4.0)
[2020-12-09 14:33] LABS: INR 1.11 (0.87-1.13)
[2020-12-09 14:34] LABS: Partial Thromboplastin Time 34.4 Sec. (24.2-36.6)
[2020-12-09 18:45] LABS: Creatine Kinase MB 20.4 ng/mL (0.0-4.0)
[2020-12-09] MEDS: BUDESONIDE 0.5 MG/2 ML NEBU IH SCH (21:12)
[2020-12-10] MEDS: METOPROLOL TARTRATE 25 MG TAB PO SCH ×4 (01:09→18:16)
[2020-12-10] MEDS: CLOPIDOGREL 75 MG TAB PO SCH ×2 (06:30→15:00)
[2020-12-10] MEDS: BUDESONIDE 0.5 MG/2 ML NEBU IH SCH ×3 (08:31→20:19)
[2020-12-10] MEDS: HEPARIN/ 0.45% NACL DRIP 25,000 UNIT/500 ML BAG IV SCH (12:35)
[2020-12-10] MEDS ORDERED: SODIUM CHLORIDE 0.9% 500 ML 500 ML ONE (12:59)
[2020-12-10] MEDS: ASPIRIN 81 MG TAB CHEW PO SCH (13:10)
[2020-12-10] MEDS ORDERED: VERAPAMIL 5 MG/2 ML INJ ONE (13:37)
[2020-12-10] MEDS ORDERED: HEPARIN/NS 5000 UNIT/500ML 1,000 ML IR ONE (13:37)
[2020-12-10] MEDS ORDERED: LIDOCAINE (2%) 20 MG/1 ML VIAL 20 ML MDV INFILTRATI ONE (13:37)
[2020-12-10] MEDS ORDERED: NITROGLYCERIN SYRINGE 3 ML ONE (13:37)
[2020-12-10] MEDS ORDERED: MIDAZOLAM 2 MG/2 ML INJ ONE (13:38)
[2020-12-10] MEDS ORDERED: fentaNYL 100 MCG/2 ML INJ ONE (13:39)
[2020-12-10] MEDS ORDERED: SODIUM CHLORIDE 0.9% 500 ML 500 ML IV SCH (14:00)
[2020-12-10] MEDS: HEPARIN 10,000 UNITS/10 ML VIAL ONE ×2 (14:06→14:10)
[2020-12-10] MEDS ORDERED: NITROGLYCERIN DRIP 50 MG/250 ML BOTTLE ONE (14:24)
[2020-12-10] MEDS ORDERED: CLOPIDOGREL 75 MG TAB ONE (14:42)
[2020-12-10] MEDS ORDERED: HYDROcodone/ACETAMINOPHEN 5-325 MG TAB PO PRN (14:59)
--- NOTE | 2020-12-10 14:59 | Event Note ---
Date: 12/10/20 Patient underwent a limited angiography of the left coronary system, we found: Widely patent circumflex artery stent, with SANTY-3 flow. The LAD contained a calcified 75% stenosis of the proximal segment as described on the previous angiogram. We performed successful angioplasty and stenting with deployment of serial 3.0 mm drug-eluting stents to the proximal LAD. The patient will be continued on optimal guideline directed medical therapy including dual oral antiplatelet therapy. We will order LifeVest monitoring before discharge, as a bridge to eventual EP consultation for ICD for secondary prevention.
[2020-12-10] MEDS ORDERED: SODIUM CHLORIDE 0.9% 1000 ML 1,000 ML IV SCH (15:00)
[2020-12-10] MEDS: DOCUSATE SODIUM 100 MG CAP PO SCH ×2 (15:59→23:31)
--- NOTE | 2020-12-10 17:36 | Cardiac Catherization Report ---
DATE OF SERVICE: 12/10/2020 CARDIAC CATHETERIZATION AND CORONARY ANGIOPLASTY REPORT REASON FOR STUDY: The patient is a 49-year-old man who suffered acute posterior myocardial infarction a week ago, treated with coronary intervention to the circumflex artery, which was completely occluded in its mid segment. A 3.5 mm drug-eluting stent was deployed to that vessel. At the time of his myocardial infarction, we also found a 75% stenosis of the proximal LAD, recommended for elective intervention as indicated. The patient was discharged home, and represents to the hospital a week later with recurrent chest pain and at this time associated with sustained wide complex tachycardia. Due to the finding of ventricular tachycardia, he was recommended to undergo a cardiac catheterization to assess the patency of the circumflex stent, proceed with second vessel complete revascularization of the LAD, followed by possible electrophysiologic evaluation of ventricular tachycardia. PROCEDURES: 1. Limited left heart catheterization. 2. Selective left coronary angiography. 3. Coronary angioplasty and stenting of the proximal LAD. 4. Sedation time start 1403 hours, end 1436 hours. DESCRIPTION OF PROCEDURE: The patient was prepped and draped in a sterile fashion after informed consent. The right radial catheterization site was prepped and draped after negative Ozzie's test. I was present for the entire procedure and supervised with moderate sedation protocol. The right radial artery was entered using the Seldinger technique followed by placement of a 6-Citizen Of [place] hydrophilic sheath. Routine radial cocktail was administered via the sheath. We selected a 3.0 XB guiding catheter and advanced to the left coronary ostium. Angiograms were taken of the left coronary system. We then reviewed the angiograms, which found a widely patent circumflex artery, patent stent, with SANTY 3 flow. We then proceeded with coronary intervention to the LAD. A 0.014 inch Psych Sales Specialist 50 guidewire was directed into the LAD across the lesional segment. A 3.0 mm balloon catheter was used to dilate the stenosis. This was followed by deployment of serial, 3.0 mm drug-eluting stents, covering the entire lesion. The stents were deployed to optimal pressures. Following stenting, there was an excellent angiographic result at the treated site in the LAD, zero residual stenosis and SANTY 3 flow. The procedure was well tolerated by the patient and there were no complications. Catheters were removed, sheath removed and hemostasis achieved using a TR band. The patient was returned to the postprocedure unit in stable condition. CONCLUSION: 1. Limited left coronary angiography revealed widely patent circumflex artery stent with SANTY 3 flow. 2. Successful second vessel coronary intervention to the proximal LAD, this 75% stenosis of the proximal vessel was treated using serial 3.0 mm drug-eluting stents, excellent angiographic result and maintenance of SANTY 3 flow. RECOMMENDATIONS: The patient will be placed on optimal dual oral antiplatelet therapy and will be discharged on LifeVest monitoring with subsequent referral for electrophysiologic assessment of sustained ventricular tachycardia. TID: [id number] RECEIPT: [id number] HAYDEN/KATT
--- NOTE | 2020-12-10 19:28 | Progress Note ---
Assessment and Plan Assessment and plan: Patient is a 49-year-old male with past medical history of a recent STEMI status post cardiac catheterization with occluded circumflex with POLO PCI deployment x1 and thrombectomy and borderline stenosis of the LAD which medical therapy was recommended and also found to have underlying moderate to severe ischemic cardiomyopathy. The patient was discharged on antiplatelets Plavix and has been fully compliant came to the ER today following a complaint of chest pain or shortness of breath the night before that awakened him up from sleep this morning with associated nausea but no vomiting. On arrival to the ER was noted to have V. tach which was stable. The patient converted to sinus rhythm after a dministration of lidocaine. Is currently chest pain-free but mildly hypotensive with noted positive troponin and the recommendation from ER doctor and client customer manager for admission for further work-up. He denies any fever reports compliance with his medication. His hospital course prior was complicated with sepsis and fever for which he was treated with antibiotics. He also had a history of EtOH and tobacco use which he says he has not had any drink since the episode. VTACH CAD HTN- Now hypotensive Chest Pain Positive Troponin-improved compared to recent numbers Plan 12/11: Patient underwent cardiac cath with findings and recommendations as noted below Widely patent circumflex artery stent, with SANTY-3 flow. The LAD contained a calcified 75% stenosis of the proximal segment as described on the previous angiogram. We performed successful angioplasty and stenting with deployment of serial 3.0 mm drug-eluting stents to the proximal LAD. The patient will be continued on optimal guideline directed medical therapy including dual oral antiplatelet therapy. We will order LifeVest monitoring before discharge, as a bridge to eventual EP consultation for ICD for secondary prevention. Discussed with client customer manager Continue beta-blockers, statin, and aspirin and Plavix. Pain control Dvt/gi PROPHY HOLD ACEI due to hypotension Plan also discussed with the patient in detail Will transfer to Telemetry in am History Interval history: Patient seen and examined, resting comfortable, no new distress Hospitalist Physical - Physical exam Narrative exam: VITAL SIGNS: Reviewed. GENERAL: The patient appears normally developed, Vital signs as documented. HEAD: No signs of head trauma. EYES: Pupils are equal. Extraocular motions intact. EARS: Hearing grossly intact. MOUTH: Oropharynx is normal. NECK: No adenopathy, no JVD. CHEST: Chest with clear breath sounds bilaterally. No wheezes, rales, or rhonchi. CARDIAC: Regular rate and rhythm. S1 and S2, without murmurs, gallops, or rubs. VASCULAR: No Edema. Peripheral pulses normal and equal in all extremities. ABDOMEN: Soft, non tender and non distended. No rebound or guarding, and no masses palpated. Bowel Sounds normal. MUSCULOSKELETAL: Good range of motion of all major joints. Extremities without clubbing, cyanosis or edema. NEUROLOGIC EXAM: Alert and oriented x 3 No focal sensory or strength deficits. Speech normal. Follows commands. PSYCHIATRIC: Mood normal. SKIN: detail exam as documented in skin assessment - Constitutional Vitals: Temp Pulse Resp BP Pulse Ox 98.2 F 96 H 19 115/68 95 12/10/20 16:00 12/10/20 18:16 12/10/20 18:00 12/10/20 18:16 12/10/20 18:00 General appearance: Present: no acute distress HEART Score - HEART Score EKG: Significant ST-depression (V. tach) Age: 45-65 Risk factors: 1-2 risk factors Troponin: Troponin T 0.687 ng/mL (0.00-0.029) H* 12/09/20 17:59 Troponin: 1-3x normal limit (Pending) Results - Labs CBC & Chem 7: 12/11/20 04:51 12/11/20 04:51 Labs: Laboratory Last Values WBC 6.4 K/mm3 (4.5-11.0) 12/09/20 13:10 RBC 4.41 M/mm3 (3.65-5.03) 12/09/20 13:10 Hgb 13.7 gm/dl (11.8-15.2) 12/09/20 13:10 Hct 41.6 % (35.5-45.6) 12/09/20 13:10 MCV 94 fl (84-94) 12/09/20 13:10 MCH 31 pg (28-32) 12/09/20 13:10 MCHC 33 % (32-34) 12/09/20 13:10 RDW 12.8 % (13.2-15.2) L 12/09/20 13:10 Plt Count 509 K/mm3 (140-440) H 12/09/20 13:10 Lymph % (Auto) 25.6 % (13.4-35.0) 12/09/20 13:10 [place] % (Auto) 8.0 % (0.0-7.3) H 12/09/20 13:10 Eos % (Auto) 0.9 % (0.0-4.3) 12/09/20 13:10 Baso % (Auto) 0.6 % (0.0-1.8) 12/09/20 13:10 Lymph # (Auto) 1.6 K/mm3 (1.2-5.4) 12/09/20 13:10 [place] # (Auto) 0.5 K/mm3 (0.0-0.8) 12/09/20 13:10 Eos # (Auto) 0.1 K/mm3 (0.0-0.4) 12/09/20 13:10 Baso # (Auto) 0.0 K/mm3 (0.0-0.1) 12/09/20 13:10 Seg Neutrophils % 64.9 % (40.0-70.0) 12/09/20 13:10 Seg Neutrophils # 4.2 K/mm3 (1.8-7.7) 12/09/20 13:10 PT 14.2 Sec. (12.2-14.9) 12/09/20 13:10 INR 1.11 (0.87-1.13) 12/09/20 13:10 APTT 34.4 Sec. (24.2-36.6) 12/09/20 13:10 Activated Clotting Time 301 (74-137) H 12/10/20 14:50 Heparin Anti-Xa Level < 0.10 U.I./ml (0.3-0.7) L 12/10/20 12:22 Sodium 140 mmol/L (137-145) 12/09/20 08:05 Potassium 4.4 mmol/L (3.6-5.0) 12/09/20 08:05 Chloride 101.6 mmol/L (98-107) 12/09/20 08:05 Carbon Dioxide 27 mmol/L (22-30) 12/09/20 08:05 Anion Gap 16 mmol/L 12/09/20 08:05 BUN 17 mg/dL (9-20) 12/09/20 08:05 Creatinine 0.9 mg/dL (0.8-1.3) 12/09/20 08:05 Estimated GFR > 60 ml/min 12/09/20 08:05 BUN/Creatinine Ratio 19 % 12/09/20 08:05 Glucose 148 mg/dL (75-100) H 12/09/20 08:05 POC Glucose 110 mg/dL (70-105) H 12/10/20 12:03 Calcium 9.1 mg/dL (8.4-10.2) 12/09/20 08:05 Magnesium 2.20 mg/dL (1.7-2.3) 12/09/20 08:05 Total Creatine Kinase 214 units/L (55-170) H 12/09/20 17:59 CK-MB (CK-2) 20.4 ng/mL (0.0-4.0) H 12/09/20 17:59 CK-MB (CK-2) Rel Index 9.5 (0-4) H 12/09/20 17:59 Troponin T 0.687 ng/mL (0.00-0.029) H* 12/09/20 17:59 Triglycerides 92 mg/dL (2-149) 12/09/20 08:05 Cholesterol < 4 mg/dL (50-199) L 12/09/20 08:05 LDL Cholesterol Direct 4 mg/dL (50-130) L 12/09/20 08:05 HDL Cholesterol < 3 mg/dL (40-59) L 12/09/20 08:05 Cholesterol/HDL Ratio 1.00 % 12/09/20 08:05 Izquierdo/IV: Voiding Method Urinal Active Medications - Current Medications Current Medications: Generic Name Dose Route Start Last Admin Trade Name Freq PRN Reason Stop Dose Admin Acetaminophen 650 mg 12/09/20 10:00 Acetaminophen 325 Mg Tab PO Q4H PRN Pain MILD(1-3)/Fever >100.5/GIBSON Hydrocodone Bitart/Acetaminophen 1 each 12/10/20 14:59 12/10/20 15:59 Hydrocodone/Acetaminophen 5-325 Mg Tab PO 1 each Q6H PRN Administration Pain, Moderate (4-6) Al Hydrox/Mg Hydrox/Simethicone 30 ml 12/09/20 10:00 Alum-Mag Hydroxide-Simethicone [phone]/5ml Oral Liqd 30 Ml PO Q4H PRN Indigestion Albuterol 2.5 mg 12/09/20 10:00 12/10/20 08:31 Albuterol 2.5 Mg/3 Ml Nebu IH 2.5 mg Q4HRT PRN Administration Shortness Of Breath Aspirin 81 mg 12/09/20 10:00 12/10/20 13:10 Aspirin 81 Mg Tab Chew PO 81 mg QDAY ABIMAEL Administration Atorvastatin Calcium 40 mg 12/09/20 22:00 12/09/20 23:00 Atorvastatin 40 Mg Tab PO 40 mg QHS ABIMAEL Administration Budesonide 0.5 mg 12/09/20 20:00 12/10/20 08:31 Budesonide 0.5 Mg/2 Ml Nebu IH 0.5 mg Q12HRT ABIMAEL Administration Clopidogrel Bisulfate 75 mg 12/09/20 10:00 12/10/20 15:00 Clopidogrel 75 Mg Tab PO Not Given QDAY ABIMAEL Dextrose 50 ml 12/09/20 10:00 Dextrose 50% In Water (25gm) 50 Ml Syringe IV Q30MIN PRN Hypoglycemia Protocol Docusate Sodium 100 mg 12/09/20 12:00 12/10/20 15:59 Docusate Sodium 100 Mg Cap PO 100 mg BID ABIMAEL Administration Sodium Chloride 500 mls @ 50 mls/hr 12/10/20 14:00 12/10/20 13:12 Nacl 0.9% 500 Ml IV 12/11/20 13:59 50 mls/hr DIRECT ABIMAEL Administration Sodium Chloride 1,000 mls @ 75 mls/hr 12/10/20 15:00 Nacl 0.9% 1000 Ml IV 12/10/20 20:59 DIRECT ABIMAEL Metoprolol Tartrate 25 mg 12/09/20 12:00 12/10/20 18:16 Metoprolol Tartrate 25 Mg Tab PO 25 mg Q6HR ABIMAEL Administration Ondansetron HCl 4 mg 12/09/20 10:00 Ondansetron 4 Mg/2 Ml Inj IV Q4H PRN Nausea And Vomiting Oxycodone/Acetaminophen 1 tab 12/09/20 09:58 Oxycodone /Acetaminophen 5-325mg Tab PO Q6H PRN Pain, Moderate (4-6) Sodium Chloride 10 ml 12/09/20 10:00 12/10/20 16:00 Sodium Chloride 0.9% 10 Ml Flush Syringe IV 10 ml BID ABIMAEL Administration Sodium Chloride 10 ml 12/09/20 10:00 Sodium Chloride 0.9% 10 Ml Flush Syringe IV PRN PRN LINE FLUSH Nutrition/Malnutrition Assess - Dietary Evaluation Nutrition/Malnutrition Findings: Nutrition Notes Start: 12/10/20 09:51 Freq: Status: Active Protocol: Document 12/10/20 09:51 SILVIO (Rec: 12/10/20 09:56 SILVIO [id number]) Co-Sign 12/10/20 09:51 MK Nutrition Notes Need for Assessment generated from: MD Order Initial or Follow up Brief Note Current Diagnosis Coronary Artery Disease, Hypertension,Malnutrition, Hyperlipidemia Other Pertinent Diagnosis ischemic cardiomyopathy, hx smoking and alcohol abuse Current Diet NPO Weight 68.03 kg [place] Body Weight (kg) 0 Intake Prior to Admission Good Subjective/Other Information MD consult for malnutrition. 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 Pt had nausea on admission, per chart. Pt reports no longer experiencing nausea. Pt shows no physical signs of malnutrition. Nutrition Intervention Revisit per MD consult or patient Sign Off request:
[2020-12-11] MEDS: METOPROLOL TARTRATE 25 MG TAB PO SCH ×4 (00:14→17:45)
--- NOTE | 2020-12-11 03:06 | XRay Report ---
CHEST 1 VIEW 12/11/2020 1:23 AM INDICATION / CLINICAL INFORMATION: post pci. COMPARISON: One view of the chest from 12/09/2020. FINDINGS: SUPPORT DEVICES: None. HEART / MEDIASTINUM: No significant abnormality. LUNGS / PLEURA: Clear lungs. No significant pleural effusion. No pneumothorax. ADDITIONAL FINDINGS: No significant additional findings. IMPRESSION: 1. No acute abnormality of the chest. Signer Name: Barney Morales MD Signed: 12/11/2020 3:02 AM Workstation Name: [id number]
[2020-12-11 05:09] LABS: Basophils % (Auto) 0.6 % (0.0-1.8); Eosinophils # (Auto) 0.2 K/mm3 (0.0-0.4); Eosinophils % (Auto) 2.2 % (0.0-4.3); Hemoglobin 13.1 gm/dl (11.8-15.2); Lymphocytes # (Auto) 1.6 K/mm3 (1.2-5.4); Lymphocytes % (Auto) 19.4 % (13.4-35.0); Mean Corpuscular HGB Conc 35 % (32-34); Mean Corpuscular Volume 95 fl (84-94); Monocytes # (Auto) 0.8 K/mm3 (0.0-0.8); Monocytes % (Auto) 10.4 % (0.0-7.3); Platelet Count 468 K/mm3 (140-440); Red Blood Count 4.02 M/mm3 (3.65-5.03); Red Cell Distribution Width 12.7 % (13.2-15.2)
[2020-12-11 05:32] LABS: BUN/Creatinine Ratio 18; Blood Urea Nitrogen 14 mg/dL (9-20); Calcium 8.7 mg/dL (8.4-10.2); Hemolysis Index 2
--- NOTE | 2020-12-11 07:32 | Progress Note ---
Assessment and Plan Assessment and plan: Patient is a 49-year-old male with past medical history of a recent STEMI status post cardiac catheterization with occluded circumflex with POLO PCI deployment x1 and thrombectomy and borderline stenosis of the LAD which medical therapy was recommended and also found to have underlying moderate to severe ischemic cardiomyopathy. The patient was discharged on antiplatelets Plavix and has been fully compliant came to the ER today following a complaint of chest pain or shortness of breath the night before that awakened him up from sleep this morning with associated nausea but no vomiting. On arrival to the ER was noted to have V. tach which was stable. The patient converted to sinus rhythm after a dministration of lidocaine. Is currently chest pain-free but mildly hypotensive with noted positive troponin and the recommendation from ER doctor and surgical services tech for admission for further work-up. He denies any fever reports compliance with his medication. His hospital course prior was complicated with sepsis and fever for which he was treated with antibiotics. He also had a history of EtOH and tobacco use which he says he has not had any drink since the episode. VTACH CAD HTN- Now hypotensive Chest Pain Positive Troponin-improved compared to recent numbers Plan 12/10: Patient underwent cardiac cath with findings and recommendations as noted below Widely patent circumflex artery stent, with SANTY-3 flow. The LAD contained a calcified 75% stenosis of the proximal segment as described on the previous angiogram. We performed successful angioplasty and stenting with deployment of serial 3.0 mm drug-eluting stents to the proximal LAD. The patient will be continued on optimal guideline directed medical therapy including dual oral antiplatelet therapy. We will order LifeVest monitoring before discharge, as a bridge to eventual EP consultation for ICD for secondary prevention. 12/11: Patient doing well this morning blood pressure mildly on the low side low 100s systolic. No dizziness reported. Transfer to telemetry while awaiting further work-up by cardiology and the LifeVest. Anticipate discharge once LifeVest is obtained if no other contraindication is noted. Will defer any further adjustment of beta-billie to cardiology Discussed with surgical services tech Continue beta-blockers, statin, and aspirin and Plavix. Pain control Dvt/gi PROPHY HOLD ACEI due to hypotension Plan also discussed with the patient in detail Will transfer to Telemetry in am History Interval history: Patient seen and examined, resting comfortable, no new distress. No new pain reported Hospitalist Physical - Physical exam Narrative exam: VITAL SIGNS: Reviewed. GENERAL: The patient appears normally developed, Vital signs as documented. HEAD: No signs of head trauma. EYES: Pupils are equal. Extraocular motions intact. EARS: Hearing grossly intact. MOUTH: Oropharynx is normal. NECK: No adenopathy, no JVD. CHEST: Chest with clear breath sounds bilaterally. No wheezes, rales, or rhonchi. CARDIAC: Regular rate and rhythm. S1 and S2, without murmurs, gallops, or rubs. VASCULAR: No Edema. Peripheral pulses normal and equal in all extremities. ABDOMEN: Soft, non tender and non distended. No rebound or guarding, and no masses palpated. Bowel Sounds normal. MUSCULOSKELETAL: Good range of motion of all major joints. Extremities without clubbing, cyanosis or edema. NEUROLOGIC EXAM: Alert and oriented x 3 No focal sensory or strength deficits. Speech normal. Follows commands. PSYCHIATRIC: Mood normal. SKIN: detail exam as documented in skin assessment - Constitutional Vitals: Temp Pulse Resp BP Pulse Ox 97.5 F L 69 14 98/68 95 12/11/20 04:00 12/11/20 05:15 12/11/20 04:30 12/11/20 05:15 12/11/20 04:30 General appearance: Present: no acute distress HEART Score - HEART Score EKG: Significant ST-depression (V. tach) Age: 45-65 Risk factors: 1-2 risk factors Troponin: Troponin T 0.734 ng/mL (0.00-0.029) H* 12/11/20 04:51 Troponin: 1-3x normal limit (Pending) Results - Labs CBC & Chem 7: 12/11/20 04:51 12/11/20 04:51 Labs: Laboratory Last Values WBC 8.0 K/mm3 (4.5-11.0) 12/11/20 04:51 RBC 4.02 M/mm3 (3.65-5.03) 12/11/20 04:51 Hgb 13.1 gm/dl (11.8-15.2) 12/11/20 04:51 Hct 38.0 % (35.5-45.6) 12/11/20 04:51 MCV 95 fl (84-94) H 12/11/20 04:51 MCH 33 pg (28-32) H 12/11/20 04:51 MCHC 35 % (32-34) H 12/11/20 04:51 RDW 12.7 % (13.2-15.2) L 12/11/20 04:51 Plt Count 468 K/mm3 (140-440) H 12/11/20 04:51 Lymph % (Auto) 19.4 % (13.4-35.0) 12/11/20 04:51 [place] % (Auto) 10.4 % (0.0-7.3) H 12/11/20 04:51 Eos % (Auto) 2.2 % (0.0-4.3) 12/11/20 04:51 Baso % (Auto) 0.6 % (0.0-1.8) 12/11/20 04:51 Lymph # (Auto) 1.6 K/mm3 (1.2-5.4) 12/11/20 04:51 [place] # (Auto) 0.8 K/mm3 (0.0-0.8) 12/11/20 04:51 Eos # (Auto) 0.2 K/mm3 (0.0-0.4) 12/11/20 04:51 Baso # (Auto) 0.0 K/mm3 (0.0-0.1) 12/11/20 04:51 Seg Neutrophils % 67.4 % (40.0-70.0) 12/11/20 04:51 Seg Neutrophils # 5.4 K/mm3 (1.8-7.7) 12/11/20 04:51 PT 14.2 Sec. (12.2-14.9) 12/09/20 13:10 INR 1.11 (0.87-1.13) 12/09/20 13:10 APTT 34.4 Sec. (24.2-36.6) 12/09/20 13:10 Activated Clotting Time 301 (74-137) H 12/10/20 14:50 Heparin Anti-Xa Level < 0.10 U.I./ml (0.3-0.7) L 12/10/20 12:22 Sodium 139 mmol/L (137-145) 12/11/20 04:51 Potassium 4.2 mmol/L (3.6-5.0) 12/11/20 04:51 Chloride 102.8 mmol/L (98-107) 12/11/20 04:51 Carbon Dioxide 27 mmol/L (22-30) 12/11/20 04:51 Anion Gap 13 mmol/L 12/11/20 04:51 BUN 14 mg/dL (9-20) 12/11/20 04:51 Creatinine 0.8 mg/dL (0.8-1.3) 12/11/20 04:51 Estimated GFR > 60 ml/min 12/11/20 04:51 BUN/Creatinine Ratio 18 % 12/11/20 04:51 Glucose 115 mg/dL (75-100) H 12/11/20 04:51 POC Glucose 110 mg/dL (70-105) H 12/10/20 12:03 Calcium 8.7 mg/dL (8.4-10.2) 12/11/20 04:51 Magnesium 2.20 mg/dL (1.7-2.3) 12/09/20 08:05 Total Creatine Kinase 214 units/L (55-170) H 12/09/20 17:59 CK-MB (CK-2) 20.4 ng/mL (0.0-4.0) H 12/09/20 17:59 CK-MB (CK-2) Rel Index 9.5 (0-4) H 12/09/20 17:59 Troponin T 0.734 ng/mL (0.00-0.029) H* 12/11/20 04:51 Triglycerides 92 mg/dL (2-149) 12/09/20 08:05 Cholesterol < 4 mg/dL (50-199) L 12/09/20 08:05 LDL Cholesterol Direct 4 mg/dL (50-130) L 12/09/20 08:05 HDL Cholesterol < 3 mg/dL (40-59) L 12/09/20 08:05 Cholesterol/HDL Ratio 1.00 % 12/09/20 08:05 Izquierdo/IV: Voiding Method Urinal Active Medications - Current Medications Current Medications: Generic Name Dose Route Start Last Admin Trade Name Freq PRN Reason Stop Dose Admin Acetaminophen 650 mg 12/09/20 10:00 Acetaminophen 325 Mg Tab PO Q4H PRN Pain MILD(1-3)/Fever >100.5/GIBSON Hydrocodone Bitart/Acetaminophen 1 each 12/10/20 14:59 12/10/20 15:59 Hydrocodone/Acetaminophen 5-325 Mg Tab PO 1 each Q6H PRN Administration Pain, Moderate (4-6) Al Hydrox/Mg Hydrox/Simethicone 30 ml 12/09/20 10:00 Alum-Mag Hydroxide-Simethicone [phone]/5ml Oral Liqd 30 Ml PO Q4H PRN Indigestion Albuterol 2.5 mg 12/09/20 10:00 12/10/20 08:31 Albuterol 2.5 Mg/3 Ml Nebu IH 2.5 mg Q4HRT PRN Administration Shortness Of Breath Aspirin 81 mg 12/09/20 10:00 12/10/20 13:10 Aspirin 81 Mg Tab Chew PO 81 mg QDAY ABIMAEL Administration Atorvastatin Calcium 40 mg 12/09/20 22:00 12/10/20 23:31 Atorvastatin 40 Mg Tab PO 40 mg QHS ABIMAEL Administration Budesonide 0.5 mg 12/09/20 20:00 12/10/20 20:19 Budesonide 0.5 Mg/2 Ml Nebu IH Not Given Q12HRT ABIMAEL Clopidogrel Bisulfate 75 mg 12/09/20 10:00 12/10/20 15:00 Clopidogrel 75 Mg Tab PO Not Given QDAY ABIMAEL Dextrose 50 ml 12/09/20 10:00 Dextrose 50% In Water (25gm) 50 Ml Syringe IV Q30MIN PRN Hypoglycemia Protocol Docusate Sodium 100 mg 12/09/20 12:00 12/10/20 23:31 Docusate Sodium 100 Mg Cap PO Not Given BID ABIMAEL Sodium Chloride 500 mls @ 50 mls/hr 12/10/20 14:00 12/10/20 13:12 Nacl 0.9% 500 Ml IV 12/11/20 13:59 50 mls/hr DIRECT ABIMAEL Administration Metoprolol Tartrate 25 mg 12/09/20 12:00 12/11/20 05:15 Metoprolol Tartrate 25 Mg Tab PO Not Given Q6HR ABIMAEL Ondansetron HCl 4 mg 12/09/20 10:00 Ondansetron 4 Mg/2 Ml Inj IV Q4H PRN Nausea And Vomiting Oxycodone/Acetaminophen 1 tab 12/09/20 09:58 Oxycodone /Acetaminophen 5-325mg Tab PO Q6H PRN Pain, Moderate (4-6) Sodium Chloride 10 ml 12/09/20 10:00 12/10/20 23:32 Sodium Chloride 0.9% 10 Ml Flush Syringe IV 10 ml BID ABIMAEL Administration Sodium Chloride 10 ml 12/09/20 10:00 Sodium Chloride 0.9% 10 Ml Flush Syringe IV PRN PRN LINE FLUSH Nutrition/Malnutrition Assess - Dietary Evaluation Nutrition/Malnutrition Findings: Nutrition Notes Start: 12/10/20 09:51 Freq: Status: Active Protocol: Document 12/10/20 09:51 SILVIO (Rec: 12/10/20 09:56 SILVIO [id number]) Co-Sign 12/10/20 09:51 MK Nutrition Notes Need for Assessment generated from: MD Order Initial or Follow up Brief Note Current Diagnosis Coronary Artery Disease, Hypertension,Malnutrition, Hyperlipidemia Other Pertinent Diagnosis ischemic cardiomyopathy, hx smoking and alcohol abuse Current Diet NPO Weight 68.03 kg [place] Body Weight (kg) 0 Intake Prior to Admission Good Subjective/Other Information MD consult for malnutrition. 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 Pt had nausea on admission, per chart. Pt reports no longer experiencing nausea. Pt shows no physical signs of malnutrition. Nutrition Intervention Revisit per MD consult or patient Sign Off request:
[2020-12-11] MEDS: ASPIRIN 81 MG TAB CHEW PO SCH (09:04)
[2020-12-11] MEDS: DOCUSATE SODIUM 100 MG CAP PO SCH ×2 (09:04→21:24)
[2020-12-11] MEDS: CLOPIDOGREL 75 MG TAB PO SCH (09:04)
--- NOTE | 2020-12-11 09:36 | Progress Note ---
Assessment and Plan - Patient Problems (1) Ventricular tachycardia Current Visit: Yes Status: Acute (2) Acute coronary syndrome Current Visit: No Status: Acute Subjective Date of service: 12/11/20 Interval history: NO C/O TODAY Objective Vital Signs Temp Pulse Pulse Resp BP Pulse Ox 12/11/20 08:34 107/68 90 12/11/20 08:00 98.9 F 71 72 16 107/68 97 12/11/20 07:30 71 12 101/73 96 12/11/20 07:00 71 14 102/66 97 12/11/20 06:30 80 16 92/60 95 12/11/20 06:00 74 14 114/65 97 12/11/20 05:31 69 14 103/69 99 12/11/20 05:15 69 98/68 12/11/20 05:00 78 17 98/68 95 12/11/20 04:30 74 14 92/64 95 12/11/20 04:00 97.5 F L 72 74 15 97/66 95 12/11/20 03:30 75 16 100/73 94 12/11/20 03:00 63 17 109/60 98 12/11/20 02:30 63 17 102/59 97 12/11/20 02:00 74 19 106/79 93 12/11/20 01:30 73 19 107/68 96 12/11/20 01:00 79 23 104/68 96 12/11/20 00:31 77 11 L 110/63 95 12/11/20 00:14 76 109/65 12/11/20 00:00 98.7 F 81 80 22 109/65 93 12/10/20 23:30 82 17 112/68 96 12/10/20 23:00 76 21 111/72 96 12/10/20 22:30 74 24 118/76 100 12/10/20 22:00 65 18 105/73 96 12/10/20 21:30 66 14 100/66 95 12/10/20 21:00 70 20 99/69 94 12/10/20 20:30 72 17 112/61 96 12/10/20 20:14 96 12/10/20 20:08 73 22 112/61 96 12/10/20 20:00 98.4 F 77 77 21 112/61 95 12/10/20 19:30 77 18 110/64 94 12/10/20 19:00 77 16 99/65 94 12/10/20 18:30 78 16 118/72 95 12/10/20 18:16 96 H 115/68 12/10/20 18:00 84 19 115/68 95 12/10/20 17:30 86 22 110/66 94 12/10/20 17:01 83 21 108/79 89 12/10/20 16:30 80 19 108/79 95 12/10/20 16:01 72 13 108/70 96 12/10/20 16:00 98.2 F 80 20 96 12/10/20 15:30 80 13 109/78 96 12/10/20 15:19 71 14 99/67 97 12/10/20 12:31 68 20 104/65 98 12/10/20 12:00 98.2 F 73 80 18 110/74 97 12/10/20 11:31 75 16 101/41 95 12/10/20 11:00 86 19 89/50 95 12/10/20 10:31 74 10 L 92/68 96 12/10/20 10:00 77 14 85/53 96 - Physical Examination HEENT: Positive: PERRL Neck: Positive: trachea midline Cardiac: Positive: Reg Rate and Rhythm, S4 Lungs: Positive: clear to auscultation Neuro: Positive: Grossly Intact Extremities: Absent: edema - Labs and Meds CBC 12/11/20 Range/Units 04:51 WBC 8.0 (4.5-11.0) K/mm3 RBC 4.02 (3.65-5.03) M/mm3 Hgb 13.1 (11.8-15.2) gm/dl Hct 38.0 (35.5-45.6) % Plt Count 468 H (140-440) K/mm3 Lymph # (Auto) 1.6 (1.2-5.4) K/mm3 [place] # (Auto) 0.8 (0.0-0.8) K/mm3 Eos # (Auto) 0.2 (0.0-0.4) K/mm3 Baso # (Auto) 0.0 (0.0-0.1) K/mm3 Comprehensive Metabolic Panel 12/11/20 Range/Units 04:51 Sodium 139 (137-145) mmol/L Potassium 4.2 (3.6-5.0) mmol/L Chloride 102.8 (98-107) mmol/L Carbon Dioxide 27 (22-30) mmol/L BUN 14 (9-20) mg/dL Creatinine 0.8 (0.8-1.3) mg/dL Glucose 115 H (75-100) mg/dL Calcium 8.7 (8.4-10.2) mg/dL
[2020-12-11] MEDS: BUDESONIDE 0.5 MG/2 ML NEBU IH SCH (09:41)
[2020-12-12] MEDS: METOPROLOL TARTRATE 25 MG TAB PO SCH ×5 (05:32→23:15)
[2020-12-12] MEDS: DOCUSATE SODIUM 100 MG CAP PO SCH ×2 (10:03→22:55)
[2020-12-12] MEDS: CLOPIDOGREL 75 MG TAB PO SCH (10:03)
[2020-12-12] MEDS: ASPIRIN 81 MG TAB CHEW PO SCH (10:03)
--- NOTE | 2020-12-12 10:51 | Progress Note ---
Assessment and Plan Assessment and plan: Patient is a 49-year-old male with past medical history of a recent STEMI status post cardiac catheterization with occluded circumflex with POLO PCI deployment x1 and thrombectomy and borderline stenosis of the LAD which medical therapy was recommended and also found to have underlying moderate to severe ischemic cardiomyopathy. The patient was discharged on antiplatelets Plavix and has been fully compliant came to the ER today following a complaint of chest pain or shortness of breath the night before that awakened him up from sleep this morning with associated nausea but no vomiting. On arrival to the ER was noted to have V. tach which was stable. The patient converted to sinus rhythm after a dministration of lidocaine. Is currently chest pain-free but mildly hypotensive with noted positive troponin and the recommendation from ER doctor and utilization management nurse for admission for further work-up. He denies any fever reports compliance with his medication. His hospital course prior was complicated with sepsis and fever for which he was treated with antibiotics. He also had a history of EtOH and tobacco use which he says he has not had any drink since the episode. VTACH NSTEMI CAD HTN- Now hypotensive Chest Pain Positive Troponin-improved compared to recent numbers Plan 12/10: Patient underwent cardiac cath with findings and recommendations as noted below Widely patent circumflex artery stent, with SANTY-3 flow. The LAD contained a calcified 75% stenosis of the proximal segment as described on the previous angiogram. We performed successful angioplasty and stenting with deployment of serial 3.0 mm drug-eluting stents to the proximal LAD. The patient will be continued on optimal guideline directed medical therapy including dual oral antiplatelet therapy. We will order LifeVest monitoring before discharge, as a bridge to eventual EP consultation for ICD for secondary prevention. 12/11: Patient doing well this morning blood pressure mildly on the low side low 100s systolic. No dizziness reported. Transfer to telemetry while awaiting further work-up by cardiology and the LifeVest. Anticipate discharge once LifeVest is obtained if no other contraindication is noted. Will defer any further adjustment of beta-billie to cardiology 12/12: Continue supportive care. Per utilization management nurse no TONI at this time due to hypotension. We will also discuss with utilization management nurse about changing beta-billie which is currently every 6 hours. MAYBE twice a day to see if blood pressure will improve. Still awaiting LifeVest Discussed with utilization management nurse Continue beta-blockers, statin, and aspirin and Plavix. Pain control Dvt/gi PROPHY HOLD ACEI due to hypotension Plan also discussed with the patient in detail Will transfer to Telemetry in am History Interval history: Patient seen and examined, resting comfortable, no new distress. No new pain reported. Mild dizziness reported but not significant for the patient Hospitalist Physical - Physical exam Narrative exam: VITAL SIGNS: Reviewed. GENERAL: The patient appears normally developed, Vital signs as documented. HEAD: No signs of head trauma. EYES: Pupils are equal. Extraocular motions intact. EARS: Hearing grossly intact. MOUTH: Oropharynx is normal. NECK: No adenopathy, no JVD. CHEST: Chest with clear breath sounds bilaterally. No wheezes, rales, or rhonchi. CARDIAC: Regular rate and rhythm. S1 and S2, without murmurs, gallops, or rubs. VASCULAR: No Edema. Peripheral pulses normal and equal in all extremities. ABDOMEN: Soft, non tender and non distended. No rebound or guarding, and no masses palpated. Bowel Sounds normal. MUSCULOSKELETAL: Good range of motion of all major joints. Extremities without clubbing, cyanosis or edema. NEUROLOGIC EXAM: Alert and oriented x 3 No focal sensory or strength deficits. Speech normal. Follows commands. PSYCHIATRIC: Mood normal. SKIN: detail exam as documented in skin assessment - Constitutional Vitals: Temp Pulse Resp BP Pulse Ox 99.5 F 87 18 99/68 96 12/12/20 04:42 12/12/20 05:32 12/12/20 04:42 12/12/20 05:32 12/12/20 04:42 General appearance: Present: no acute distress HEART Score - HEART Score EKG: Significant ST-depression (V. tach) Age: 45-65 Risk factors: 1-2 risk factors Troponin: Troponin T 0.734 ng/mL (0.00-0.029) H* 12/11/20 04:51 Troponin: 1-3x normal limit (Pending) Results - Labs CBC & Chem 7: 12/11/20 04:51 12/11/20 04:51 Labs: Laboratory Last Values WBC 8.0 K/mm3 (4.5-11.0) 12/11/20 04:51 RBC 4.02 M/mm3 (3.65-5.03) 12/11/20 04:51 Hgb 13.1 gm/dl (11.8-15.2) 12/11/20 04:51 Hct 38.0 % (35.5-45.6) 12/11/20 04:51 MCV 95 fl (84-94) H 12/11/20 04:51 MCH 33 pg (28-32) H 12/11/20 04:51 MCHC 35 % (32-34) H 12/11/20 04:51 RDW 12.7 % (13.2-15.2) L 12/11/20 04:51 Plt Count 468 K/mm3 (140-440) H 12/11/20 04:51 Lymph % (Auto) 19.4 % (13.4-35.0) 12/11/20 04:51 [place] % (Auto) 10.4 % (0.0-7.3) H 12/11/20 04:51 Eos % (Auto) 2.2 % (0.0-4.3) 12/11/20 04:51 Baso % (Auto) 0.6 % (0.0-1.8) 12/11/20 04:51 Lymph # (Auto) 1.6 K/mm3 (1.2-5.4) 12/11/20 04:51 [place] # (Auto) 0.8 K/mm3 (0.0-0.8) 12/11/20 04:51 Eos # (Auto) 0.2 K/mm3 (0.0-0.4) 12/11/20 04:51 Baso # (Auto) 0.0 K/mm3 (0.0-0.1) 12/11/20 04:51 Seg Neutrophils % 67.4 % (40.0-70.0) 12/11/20 04:51 Seg Neutrophils # 5.4 K/mm3 (1.8-7.7) 12/11/20 04:51 PT 14.2 Sec. (12.2-14.9) 12/09/20 13:10 INR 1.11 (0.87-1.13) 12/09/20 13:10 APTT 34.4 Sec. (24.2-36.6) 12/09/20 13:10 Activated Clotting Time 301 (74-137) H 12/10/20 14:50 Heparin Anti-Xa Level < 0.10 U.I./ml (0.3-0.7) L 12/10/20 12:22 Sodium 139 mmol/L (137-145) 12/11/20 04:51 Potassium 4.2 mmol/L (3.6-5.0) 12/11/20 04:51 Chloride 102.8 mmol/L (98-107) 12/11/20 04:51 Carbon Dioxide 27 mmol/L (22-30) 12/11/20 04:51 Anion Gap 13 mmol/L 12/11/20 04:51 BUN 14 mg/dL (9-20) 12/11/20 04:51 Creatinine 0.8 mg/dL (0.8-1.3) 12/11/20 04:51 Estimated GFR > 60 ml/min 12/11/20 04:51 BUN/Creatinine Ratio 18 % 12/11/20 04:51 Glucose 115 mg/dL (75-100) H 12/11/20 04:51 POC Glucose 114 mg/dL (70-105) H 12/11/20 10:07 Calcium 8.7 mg/dL (8.4-10.2) 12/11/20 04:51 Magnesium 2.20 mg/dL (1.7-2.3) 12/09/20 08:05 Total Creatine Kinase 214 units/L (55-170) H 12/09/20 17:59 CK-MB (CK-2) 20.4 ng/mL (0.0-4.0) H 12/09/20 17:59 CK-MB (CK-2) Rel Index 9.5 (0-4) H 12/09/20 17:59 Troponin T 0.734 ng/mL (0.00-0.029) H* 12/11/20 04:51 Triglycerides 92 mg/dL (2-149) 12/09/20 08:05 Cholesterol < 4 mg/dL (50-199) L 12/09/20 08:05 LDL Cholesterol Direct 4 mg/dL (50-130) L 12/09/20 08:05 HDL Cholesterol < 3 mg/dL (40-59) L 12/09/20 08:05 Cholesterol/HDL Ratio 1.00 % 12/09/20 08:05 Iz[place]do/IV: Voiding Method Toilet Active Medications - Current Medications Current Medications: Generic Name Dose Route Start Last Admin Trade Name Freq PRN Reason Stop Dose Admin Acetaminophen 650 mg 12/09/20 10:00 12/11/20 15:46 Acetaminophen 325 Mg Tab PO 650 mg Q4H PRN Administration Pain MILD(1-3)/Fever >100.5/GIBSON Hydrocodone Bitart/Acetaminophen 1 each 12/10/20 14:59 12/10/20 15:59 Hydrocodone/Acetaminophen 5-325 Mg Tab PO 1 each Q6H PRN Administration Pain, Moderate (4-6) Al Hydrox/Mg Hydrox/Simethicone 30 ml 12/09/20 10:00 Alum-Mag Hydroxide-Simethicone [id number]/5ml Oral Liqd 30 Ml PO Q4H PRN Indigestion Albuterol 2.5 mg 12/09/20 10:00 12/10/20 08:31 Albuterol 2.5 Mg/3 Ml Nebu IH 2.5 mg Q4HRT PRN Administration Shortness Of Breath Aspirin 81 mg 12/09/20 10:00 12/12/20 10:03 Aspirin 81 Mg Tab Chew PO 81 mg QDAY ABIMAEL Administration Atorvastatin Calcium 40 mg 12/09/20 22:00 12/11/20 21:24 Atorvastatin 40 Mg Tab PO 40 mg QHS ABIMAEL Administration Clopidogrel Bisulfate 75 mg 12/09/20 10:00 12/12/20 10:03 Clopidogrel 75 Mg Tab PO 75 mg QDAY ABIMAEL Administration Dextrose 50 ml 12/09/20 10:00 Dextrose 50% In Water (25gm) 50 Ml Syringe IV Q30MIN PRN Hypoglycemia Protocol Docusate Sodium 100 mg 12/09/20 12:00 12/12/20 10:03 Docusate Sodium 100 Mg Cap PO 100 mg BID ABIMAEL Administration Metoprolol Tartrate 25 mg 12/09/20 12:00 12/12/20 05:32 Metoprolol Tartrate 25 Mg Tab PO Not Given Q6HR ABIMAEL Ondansetron HCl 4 mg 12/09/20 10:00 12/11/20 15:48 Ondansetron 4 Mg/2 Ml Inj IV 4 mg Q4H PRN Administration Nausea And Vomiting Oxycodone/Acetaminophen 1 tab 12/09/20 09:58 12/11/20 20:11 Oxycodone /Acetaminophen 5-325mg Tab PO 1 tab Q6H PRN Administration Pain, Moderate (4-6) Sodium Chloride 10 ml 12/09/20 10:00 12/12/20 10:04 Sodium Chloride 0.9% 10 Ml Flush Syringe IV 10 ml BID ABIMAEL Administration Sodium Chloride 10 ml 12/09/20 10:00 Sodium Chloride 0.9% 10 Ml Flush Syringe IV PRN PRN LINE FLUSH Nutrition/Malnutrition Assess - Dietary Evaluation Nutrition/Malnutrition Findings: Nutrition Notes Start: 12/10/20 09:51 Freq: Status: Active Protocol: Document 12/10/20 09:51 SILVIO (Rec: 12/10/20 09:56 SILVIO [id number]) Co-Sign 12/10/20 09:51 MK Nutrition Notes Need for Assessment generated from: MD Order Initial or Follow up Brief Note Current Diagnosis Coronary Artery Disease, Hypertension,Malnutrition, Hyperlipidemia Other Pertinent Diagnosis ischemic cardiomyopathy, hx smoking and alcohol abuse Current Diet NPO Weight 68.03 kg [place] Body Weight (kg) 0 Intake Prior to Admission Good Subjective/Other Information MD consult for malnutrition. 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 Pt reports good appetite, good intakes [employer], and no recent wt loss. Pt had nausea on admission, per chart. Pt reports no longer experiencing nausea. Pt shows no physical signs of malnutrition. Nutrition Intervention Revisit per MD consult or patient Sign Off request:
--- NOTE | 2020-12-12 12:55 | Progress Note ---
Assessment and Plan - Patient Problems (1) Ventricular tachycardia Current Visit: Yes Status: Acute (2) Acute coronary syndrome Current Visit: No Status: Acute Subjective Date of service: 12/12/20 Interval history: NO C/O TODAY Objective Vital Signs Temp Pulse Pulse Pulse Pulse Resp BP 12/12/20 05:32 87 99/68 12/12/20 04:42 99.5 F 98 H 18 99/68 12/12/20 00:00 44 L 102/62 12/11/20 23:49 99.8 F H 44 L 18 102/62 12/11/20 20:52 12/11/20 20:05 100.4 F H 95 H 18 111/65 12/11/20 17:45 103 H 116/66 12/11/20 16:00 99.0 F 88 89 18 105/90 12/11/20 15:51 99.1 F 89 18 12/11/20 14:59 89 12/11/20 14:45 115/74 12/11/20 13:01 66 16 115/74 BP BP Pulse Ox 12/12/20 05:32 12/12/20 04:42 96 12/12/20 00:00 12/11/20 23:49 95 12/11/20 20:52 96 12/11/20 20:05 96 12/11/20 17:45 12/11/20 16:00 12/11/20 15:51 109/70 12/11/20 14:59 109/70 12/11/20 14:45 97 12/11/20 13:01 98 - Physical Examination HEENT: Positive: PERRL Neck: Positive: trachea midline Cardiac: Positive: Reg Rate and Rhythm Lungs: Positive: clear to auscultation Neuro: Positive: Grossly Intact Extremities: Absent: edema
[2020-12-13] MEDS: METOPROLOL TARTRATE 25 MG TAB PO SCH ×3 (06:55→17:00)
[2020-12-13 07:32] LABS: Hematocrit 40.6 % (35.5-45.6); Hemoglobin 13.3 gm/dl (11.8-15.2)
[2020-12-13] MEDS: DOCUSATE SODIUM 100 MG CAP PO SCH ×2 (09:24→21:40)
[2020-12-13] MEDS: CLOPIDOGREL 75 MG TAB PO SCH (09:24)
[2020-12-13] MEDS: ASPIRIN 81 MG TAB CHEW PO SCH (09:24)
--- NOTE | 2020-12-13 12:28 | Progress Note ---
Assessment and Plan - Patient Problems (1) Ventricular tachycardia Current Visit: Yes Status: Acute (2) Acute coronary syndrome Current Visit: No Status: Acute Subjective Date of service: 12/13/20 Interval history: NO C/O TODAY Objective Vital Signs Temp Pulse Pulse Resp BP Pulse Ox 12/13/20 12:26 78 118/70 12/13/20 10:00 18 12/13/20 08:24 122.0 F H 77 20 104/69 99 12/13/20 07:35 84 12/13/20 06:55 74 113/67 12/13/20 03:50 97.9 F 73 14 98/64 96 12/12/20 23:26 97.6 F 75 14 108/63 97 12/12/20 23:15 83 121/66 12/12/20 22:00 75 88 18 12/12/20 19:28 99.0 F 88 12 121/66 98 12/12/20 17:07 88 94/67 12/12/20 14:16 66 123/59 93 - Physical Examination HEENT: Positive: PERRL Neck: Positive: trachea midline Cardiac: Positive: Reg Rate and Rhythm Lungs: Positive: clear to auscultation Neuro: Positive: Grossly Intact Extremities: Absent: edema - Labs and Meds CBC 12/13/20 Range/Units 07:05 Hgb 13.3 (11.8-15.2) gm/dl Hct 40.6 (35.5-45.6) % Plt Count 559 H (140-440) K/mm3
--- NOTE | 2020-12-13 12:29 | Progress Note ---
Assessment and Plan Assessment and plan: Patient is a 49-year-old male with past medical history of a recent STEMI status post cardiac catheterization with occluded circumflex with POLO PCI deployment x1 and thrombectomy and borderline stenosis of the LAD which medical therapy was recommended and also found to have underlying moderate to severe ischemic cardiomyopathy. The patient was discharged on antiplatelets Plavix and has been fully compliant came to the ER today following a complaint of chest pain or shortness of breath the night before that awakened him up from sleep this morning with associated nausea but no vomiting. On arrival to the ER was noted to have V. tach which was stable. The patient converted to sinus rhythm after a dministration of lidocaine. Is currently chest pain-free but mildly hypotensive with noted positive troponin and the recommendation from ER doctor and lining folder for admission for further work-up. He denies any fever reports compliance with his medication. His hospital course prior was complicated with sepsis and fever for which he was treated with antibiotics. He also had a history of EtOH and tobacco use which he says he has not had any drink since the episode. VTACH NSTEMI CAD HTN- Now hypotensive Chest Pain Positive Troponin-improved compared to recent numbers Plan 12/10: Patient underwent cardiac cath with findings and recommendations as noted below Widely patent circumflex artery stent, with SANTY-3 flow. The LAD contained a calcified 75% stenosis of the proximal segment as described on the previous angiogram. We performed successful angioplasty and stenting with deployment of serial 3.0 mm drug-eluting stents to the proximal LAD. The patient will be continued on optimal guideline directed medical therapy including dual oral antiplatelet therapy. We will order LifeVest monitoring before discharge, as a bridge to eventual EP consultation for ICD for secondary prevention. 12/11: Patient doing well this morning blood pressure mildly on the low side low 100s systolic. No dizziness reported. Transfer to telemetry while awaiting further work-up by cardiology and the LifeVest. Anticipate discharge once LifeVest is obtained if no other contraindication is noted. Will defer any further adjustment of beta-billie to cardiology 12/12: Continue supportive care. Per lining folder no TONI at this time due to hypotension. We will also discuss with lining folder about changing beta-billie which is currently every 6 hours. MAYBE twice a day to see if blood pressure will improve. Still awaiting LifeVest 12/13: Awaiting LifeVest will likely discharge following LifeVest approval. Continue current management. Discussed with lining folder Continue beta-blockers, statin, and aspirin and Plavix. Pain control Dvt/gi PROPHY HOLD ACEI due to hypotension Plan also discussed with the patient in detail Will transfer to Telemetry in am History Interval history: Patient seen and examined, resting comfortable, no new distress. No new pain reported. No dizziness today. Hospitalist Physical - Physical exam Narrative exam: VITAL SIGNS: Reviewed. GENERAL: The patient appears normally developed, Vital signs as documented. HEAD: No signs of head trauma. EYES: Pupils are equal. Extraocular motions intact. EARS: Hearing grossly intact. MOUTH: Oropharynx is normal. NECK: No adenopathy, no JVD. CHEST: Chest with clear breath sounds bilaterally. No wheezes, rales, or rhonchi. CARDIAC: Regular rate and rhythm. S1 and S2, without murmurs, gallops, or rubs. VASCULAR: No Edema. Peripheral pulses normal and equal in all extremities. ABDOMEN: Soft, non tender and non distended. No rebound or guarding, and no masses palpated. Bowel Sounds normal. MUSCULOSKELETAL: Good range of motion of all major joints. Extremities without clubbing, cyanosis or edema. NEUROLOGIC EXAM: Alert and oriented x 3 No focal sensory or strength deficits. Speech normal. Follows commands. PSYCHIATRIC: Mood normal. SKIN: detail exam as documented in skin assessment - Constitutional Vitals: Temp Pulse Resp BP Pulse Ox 122.0 F H 78 18 118/70 99 12/13/20 08:24 12/13/20 12:26 12/13/20 10:00 12/13/20 12:26 12/13/20 08:24 General appearance: Present: no acute distress HEART Score - HEART Score EKG: Significant ST-depression (V. tach) Age: 45-65 Risk factors: 1-2 risk factors Troponin: Troponin T 0.734 ng/mL (0.00-0.029) H* 12/11/20 04:51 Troponin: 1-3x normal limit (Pending) Results - Labs CBC & Chem 7: 12/13/20 07:05 12/11/20 04:51 Labs: Laboratory Last Values WBC 8.0 K/mm3 (4.5-11.0) 12/11/20 04:51 RBC 4.02 M/mm3 (3.65-5.03) 12/11/20 04:51 Hgb 13.3 gm/dl (11.8-15.2) 12/13/20 07:05 Hct 40.6 % (35.5-45.6) 12/13/20 07:05 MCV 95 fl (84-94) H 12/11/20 04:51 MCH 33 pg (28-32) H 12/11/20 04:51 MCHC 35 % (32-34) H 12/11/20 04:51 RDW 12.7 % (13.2-15.2) L 12/11/20 04:51 Plt Count 559 K/mm3 (140-440) H 12/13/20 07:05 Lymph % (Auto) 19.4 % (13.4-35.0) 12/11/20 04:51 [place] % (Auto) 10.4 % (0.0-7.3) H 12/11/20 04:51 Eos % (Auto) 2.2 % (0.0-4.3) 12/11/20 04:51 Baso % (Auto) 0.6 % (0.0-1.8) 12/11/20 04:51 Lymph # (Auto) 1.6 K/mm3 (1.2-5.4) 12/11/20 04:51 [place] # (Auto) 0.8 K/mm3 (0.0-0.8) 12/11/20 04:51 Eos # (Auto) 0.2 K/mm3 (0.0-0.4) 12/11/20 04:51 Baso # (Auto) 0.0 K/mm3 (0.0-0.1) 12/11/20 04:51 Seg Neutrophils % 67.4 % (40.0-70.0) 12/11/20 04:51 Seg Neutrophils # 5.4 K/mm3 (1.8-7.7) 12/11/20 04:51 PT 14.2 Sec. (12.2-14.9) 12/09/20 13:10 INR 1.11 (0.87-1.13) 12/09/20 13:10 APTT 34.4 Sec. (24.2-36.6) 12/09/20 13:10 Activated Clotting Time 301 (74-137) H 12/10/20 14:50 Heparin Anti-Xa Level < 0.10 U.I./ml (0.3-0.7) L 12/10/20 12:22 Sodium 139 mmol/L (137-145) 12/11/20 04:51 Potassium 4.2 mmol/L (3.6-5.0) 12/11/20 04:51 Chloride 102.8 mmol/L (98-107) 12/11/20 04:51 Carbon Dioxide 27 mmol/L (22-30) 12/11/20 04:51 Anion Gap 13 mmol/L 12/11/20 04:51 BUN 14 mg/dL (9-20) 12/11/20 04:51 Creatinine 0.8 mg/dL (0.8-1.3) 12/11/20 04:51 Estimated GFR > 60 ml/min 12/11/20 04:51 BUN/Creatinine Ratio 18 % 12/11/20 04:51 Glucose 115 mg/dL (75-100) H 12/11/20 04:51 POC Glucose 114 mg/dL (70-105) H 12/11/20 10:07 Calcium 8.7 mg/dL (8.4-10.2) 12/11/20 04:51 Magnesium 2.20 mg/dL (1.7-2.3) 12/09/20 08:05 Total Creatine Kinase 214 units/L (55-170) H 12/09/20 17:59 CK-MB (CK-2) 20.4 ng/mL (0.0-4.0) H 12/09/20 17:59 CK-MB (CK-2) Rel Index 9.5 (0-4) H 12/09/20 17:59 Troponin T 0.734 ng/mL (0.00-0.029) H* 12/11/20 04:51 Triglycerides 92 mg/dL (2-149) 12/09/20 08:05 Cholesterol < 4 mg/dL (50-199) L 12/09/20 08:05 LDL Cholesterol Direct 4 mg/dL (50-130) L 12/09/20 08:05 HDL Cholesterol < 3 mg/dL (40-59) L 12/09/20 08:05 Cholesterol/HDL Ratio 1.00 % 12/09/20 08:05 Izquierdo/IV: Voiding Method Toilet Active Medications - Current Medications Current Medications: Generic Name Dose Route Start Last Admin Trade Name Freq PRN Reason Stop Dose Admin Acetaminophen 650 mg 12/09/20 10:00 12/11/20 15:46 Acetaminophen 325 Mg Tab PO 650 mg Q4H PRN Administration Pain MILD(1-3)/Fever >100.5/GIBSON Hydrocodone Bitart/Acetaminophen 1 each 12/10/20 14:59 12/10/20 15:59 Hydrocodone/Acetaminophen 5-325 Mg Tab PO 1 each Q6H PRN Administration Pain, Moderate (4-6) Al Hydrox/Mg Hydrox/Simethicone 30 ml 12/09/20 10:00 Alum-Mag Hydroxide-Simethicone [phone]/5ml Oral Liqd 30 Ml PO Q4H PRN Indigestion Albuterol 2.5 mg 12/09/20 10:00 12/10/20 08:31 Albuterol 2.5 Mg/3 Ml Nebu IH 2.5 mg Q4HRT PRN Administration Shortness Of Breath Aspirin 81 mg 12/09/20 10:00 12/13/20 09:24 Aspirin 81 Mg Tab Chew PO 81 mg QDAY ABIMAEL Administration Atorvastatin Calcium 40 mg 12/09/20 22:00 12/12/20 22:50 Atorvastatin 40 Mg Tab PO 40 mg QHS ABIMAEL Administration Clopidogrel Bisulfate 75 mg 12/09/20 10:00 12/13/20 09:24 Clopidogrel 75 Mg Tab PO 75 mg QDAY ABIMAEL Administration Dextrose 50 ml 12/09/20 10:00 Dextrose 50% In Water (25gm) 50 Ml Syringe IV Q30MIN PRN Hypoglycemia Protocol Docusate Sodium 100 mg 12/09/20 12:00 12/13/20 09:24 Docusate Sodium 100 Mg Cap PO Not Given BID ABIMAEL Metoprolol Tartrate 25 mg 12/09/20 12:00 12/13/20 12:26 Metoprolol Tartrate 25 Mg Tab PO 25 mg Q6HR ABIMAEL Administration Ondansetron HCl 4 mg 12/09/20 10:00 12/11/20 15:48 Ondansetron 4 Mg/2 Ml Inj IV 4 mg Q4H PRN Administration Nausea And Vomiting Oxycodone/Acetaminophen 1 tab 12/09/20 09:58 12/11/20 20:11 Oxycodone /Acetaminophen 5-325mg Tab PO 1 tab Q6H PRN Administration Pain, Moderate (4-6) Sodium Chloride 10 ml 12/09/20 10:00 12/13/20 09:24 Sodium Chloride 0.9% 10 Ml Flush Syringe IV 10 ml BID ABIMAEL Administration Sodium Chloride 10 ml 12/09/20 10:00 Sodium Chloride 0.9% 10 Ml Flush Syringe IV PRN PRN LINE FLUSH Nutrition/Malnutrition Assess - Dietary Evaluation Nutrition/Malnutrition Findings: Nutrition Notes Start: 12/10/20 09:51 Freq: Status: Active Protocol: Document 12/10/20 09:51 SILVIO (Rec: 12/10/20 09:56 SILVIO [id number]) Co-Sign 12/10/20 09:51 SARI Nutrition Notes Need for Assessment generated from: MD Order Initial or Follow up Brief Note Current Diagnosis Coronary Artery Disease, Hypertension,Malnutrition, Hyperlipidemia Other Pertinent Diagnosis ischemic cardiomyopathy, hx smoking and alcohol abuse Current Diet NPO Weight 68.03 kg [place] Body Weight (kg) 0 Intake Prior to Admission Good Subjective/Other Information MD consult for malnutrition. Pt NPO for cardiac cath technologist procedure. 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 Pt had nausea on admission, per chart. Pt reports no longer experiencing nausea. Pt shows no physical signs of malnutrition. Nutrition Intervention Revisit per MD consult or patient Sign Off request:
[2020-12-14] MEDS: METOPROLOL TARTRATE 25 MG TAB PO SCH (00:15)
[2020-12-14] MEDS: ASPIRIN 81 MG TAB CHEW PO SCH (09:41)
[2020-12-14] MEDS: DOCUSATE SODIUM 100 MG CAP PO SCH (09:41)
[2020-12-14] MEDS: CLOPIDOGREL 75 MG TAB PO SCH (09:41)
--- NOTE | 2020-12-14 11:41 | Progress Note ---
Assessment and Plan SVT - reverted to sinus rhythm following IV lidocaine 100 mg. Recent myocardial infarction [facility] this presentation: widely patent circumflex artery stent. s/p PCI to the proximal LAD using POLO. on dual oral therapy with aspirin and Plavix. Echocardiogram done shows mildly dilated LA with a decreased LV systolic function, ejection fraction 35-40%. Recommendations: Continue guideline directed medical therapy for coronary artery disease and ischemic cardiomyopathy. Lifevest placement before discharge, as a bridge to eventual EP consultation for ICD for secondary prevention. Subjective Date of service: 12/14/20 Interval history: Patient denies chest pain. Lifevest is being placed. Objective Vital Signs Temp Pulse Resp BP Pulse Ox 12/14/20 08:43 59 L 12/14/20 03:47 97.8 F 59 L 14 96/62 96 12/14/20 00:15 100/66 12/13/20 23:35 98.6 F 79 16 100/66 95 12/13/20 22:00 77 12/13/20 21:40 17 12/13/20 19:49 97.8 F 80 12 103/69 98 12/13/20 17:00 79 107/73 12/13/20 16:03 97.2 F L 79 18 107/73 94 12/13/20 12:26 78 118/70 12/13/20 11:46 98.0 F 78 20 118/70 95 - Physical Examination General: No Apparent Distress HEENT: Positive: PERRL Neck: Positive: trachea midline Cardiac: Positive: Reg Rate and Rhythm Lungs: Positive: Decreased Breath Sounds Neuro: Positive: Grossly Intact Extremities: Absent: edema
[2020-12-14 13:18] VITALS: BP 101/70
--- NOTE | 2020-12-14 14:28 | Discharge Summary ---
Providers - Providers Date of Admission: 12/09/20 09:42 Date of discharge: 12/14/20 Attending physician: LILIANE MELGOZA 12/09/20 Consult to Case Management [CONS] Routine Services Needed at Discharge: Sql Report Writer Notified:: no 12/09/20 09:57 Consult to Physician [CONS] Routine Comment: Consulting Provider: ERI DODD Physician Instructions: Reason For Exam: vtac 12/09/20 10:03 Consult to Dietitian/Nutrition [CONS] Routine Physician Instructions: Reason For Exam: Reason for Consult: Malnutrition 12/10/20 Consult to Cardiac Rehabilitation [CONS] Routine Reason For Exam: post pci Primary care physician: TELECOMMUNICATIONS LINESWORKER Hospitalization Condition: Fair Pertinent studies: Chest x-ray, cardiac cath Hospital course: 49-year-old man who suffered an acute posterior infarct OR a week ago s/p PCI of occluded circumflex, severe ischemic cardiomyopathy presents to the hospital this time with chest pain. In the emergency room was found with sustained ventricular tachycardia, heart rate 180, he was treated with intravenous lidocaine bolus, and immediately returned to a stable sinus rhythm. Patient was then admitted for further evaluation and management. Cardiology was consulted, patient was initiated on heparin beta-billie statin aspirin and Plavix. Patient was planned for cardiac catheterization to assess the patency of his circumflex artery stent and for possible revascularization of the proximal LAD. Daily clinical course: 12/10: Patient underwent cardiac cath with findings and recommendations as noted below Widely patent circumflex artery stent, with SANTY-3 flow. The LAD contained a calcified 75% stenosis of the proximal segment as described on the previous angiogram, performed successful angioplasty and stenting with deployment of serial 3.0 mm drug-eluting stents to the proximal LAD. The patient will be continued on optimal guideline directed medical therapy including dual oral antiplatelet therapy. Cardiology recommended to order LifeVest monitoring before discharge, as a bridge to eventual EP consultation for ICD for secondary prevention. 12/11: Patient doing well this morning blood pressure mildly on the low side low 100s systolic. No dizziness reported. Transfer to telemetry while awaiting further work-up by cardiology and the LifeVest. Anticipate discharge once LifeVest is obtained if no other contraindication is noted. Will defer any further adjustment of beta-billie to cardiology 12/12: Continue supportive care. Per remote computer terminal operator no TONI at this time due to hypotension. We will also discuss with remote computer terminal operator about changing beta-billie which is currently every 6 hours. MAYBE twice a day to see if blood pressure will improve. Still awaiting LifeVest 12/13: Awaiting LifeVest will likely discharge following LifeVest approval. Continue current management. 12/14; LifeVest has been delivered this morning. Patient clinically appears stable and cardiology cleared for discharge. Patient will continue beta- billie, statin, aspirin and Plavix. No ACEI due to hypotension. Discharge plan and management was thoroughly discussed with the patient and he verbalized understanding. Recommended 1 week post discharge follow-up with Dr. Orr. Disposition: - TO HOME OR SELFCARE Final Discharge Diagnosis (Prints w/discharge instructions): Chest pain due to coronary artery disease, status post PCI to proximal LAD. Sustained ventricular tachycardia -- reverted to sinus rhythm following IV lidocaine 100 mg, patient placed on LifeVest on discharge. Coronary artery disease with history of recent OR. Ischemic cardiomyopathy with EF 35 to 40% Time spent for discharge: 34 minutes Core Measure Documentation - Palliative Care Palliative Care/ Comfort Measures: Not Applicable - Core Measures Any of the following diagnoses?: history only Exam - Constitutional Vitals: Temp Pulse Resp BP Pulse Ox 97.8 F 74 18 101/70 98 12/14/20 12:01 12/14/20 12:01 12/14/20 12:01 12/14/20 12:12/14/20 12:01 Plan Activity: advance as tolerated Weight Bearing Status: Non-Weight Bearing Diet: low fat, low salt Additional Instructions: Outpatient follow-up with electrophysiology in 5 to 7 days. Continue low-fat and low-salt diet. Please be compliant with your medications and outpatient follow-ups Follow up with: WENDY NERI MD [Staff Physician] - 7 Days PRIMARY CARE, [Primary Care Provider] - 3-5 Days Prescriptions: Aspirin [Aspirin BABY CHEW TAB] 81 mg PO QDAY #30 tab.chew
--- NOTE | 2020-12-14 17:40 | Electrocardiograph Report ---
[facility] Test Date: 2020-12-11 Test Time: 07:14:41 Pat Name: ELZA HADLEY Department: Room: A477 Gender: M Podiatric Aide: TESSY : 1970 Requested By: LEROY DODD Order Number: [id number] Reading MD: Leroy Dodd Measurements Intervals [place] Rate: 77 P: 54 NE: 156 QRS: 237 QRSD: 107 T: -66 QT: 418 QTc: 473 Interpretive Statements Sinus rhythm Right axis deviation Inferoposterior infarct, age indeterminate Compared to ECG 12/09/2020 07:50:25 Electronically Signed On 12-14-2020 17:39:46 EDT by Leroy Dodd
== END 2020-12-14 15:50 | disposition home or self-care (01) | DRG 247 ==
LOC: ED 07:01 → 4A 09:42 → IMCU 10:38 → 4A 12-11 11:02
PROVIDERS: ADMIT Internal Medicine; ATTEND Internal Medicine
PROC: 4A023N7 Measurement of Cardiac Sampling and Pressure, Left Heart, Percutaneous Approach (ICD-10-PCS; principal; 2020-12-10)
PROC: 027034Z Dilation of Coronary Artery, One Artery with Drug-eluting Intraluminal Device, Percutaneous Approach (ICD-10-PCS; 2020-12-10)
PROC: B2111ZZ Fluoroscopy of Multiple Coronary Arteries using Low Osmolar Contrast (ICD-10-PCS; 2020-12-10)
DX: I21.4 Non-ST elevation (NSTEMI) myocardial infarction (principal); I47.2 Ventricular tachycardia; I25.2 Old myocardial infarction; Z87.891 Personal history of nicotine dependence; I25.10 Atherosclerotic heart disease of native coronary artery without angina pectoris; I10 Essential (primary) hypertension; E78.5 Hyperlipidemia, unspecified; Z95.5 Presence of coronary angioplasty implant and graft; I25.5 Ischemic cardiomyopathy
CPT/HCPCS: 36415; 71045; 80048; 80061; 82550; 82553; 82962; 83735; 84484; 85014; 85018; 85025; 85049; 85347; 85520; 85610; 85730; 92928; 93005; 94640; G0378; A9270-GY; C1725; C1769; C1874; C1887; C1894; C9600; J1644; J2001; J2250; J2405; J3010; J7040; Q9967